=== PATIENT | female | born 1945 | race Caucasian/White ===

== ENCOUNTER → 2018-06-24 | Outpatient (CLI) | payer MEDICARE, OTHER ==
[~2018-06-24] MED LIST: ARMOUR THYROID60 MG PO; CITALOPRAM PO; CORTISONE ACETA25 MG PO; DHEA; EVISTA60 MG PO; GADOBENATE DIMEGLUMINE 1 ML IV ONE; LEVOTHYROXINE; LEVOTHYROXINE PO; MIDRIN CAPSULE1 EACH; PANTOPRAZOLE SO40 MG PO; POTASSIUM CHLO10 ME1 PO; PROBIOTIC; PROBIOTIC DIGE1 EACH PO; REGLAN10 MG PO; RITALIN5 MG PO; SODIUM CHLORIDE 0.9% 50ML 50 ML ONE; SUCRALFATE1 GM PO; TOPIRAMATE25 MG PO; [UNRECOGNIZED DRUG - OTHER] PO; vit b12 IM
[2018-06-24 09:23] LABS: BLOOD UREA NITROGEN 15 mg/dL (7-26); BUN/CREATININE RATIO 17 (6-25); CREATININE, SERUM 0.88 mg/dL (0.57-1.11); EST GLOMERULAR FILTRATION RATE > 60 ML/MIN (60-)
--- NOTE | 2018-06-24 16:15 | Diagnostic Imaging Report ---
EXAMINATION: MRI of the Sella without and with contrast HISTORY: Prolactinoma COMPARISON: None available TECHNIQUE: Thin section images of the sella consisting of coronal dynamic T1, sagittal and coronal T1 pre/post contrast, coronal T2. Whole brain DWI/ADC. Intravenous Contrast: 10 mL of MultiHance. FINDINGS: Pituitary gland: Normal in size and configuration, measuring 4.2 mm maximum height with a flat superior contour. Unremarkable neuro and adenohypophysis. Sella Turcica: Normal in size and configuration. Pituitary stalk: Well visualized and unremarkable. Optic chiasm: Well visualized and unremarkable.. Cavernous sinuses: Normal in size and symmetric. Internal carotid arteries: Normal flow void appearance. Visualized brain parenchyma: Normal, no areas of restricted diffusion. IMPRESSION: Normal pituitary gland. Signed by: Dr. Alexandria Perez M.D. on 06/24/2018 4:12 PM
== END ==
LOC: MRI 08:29
PROVIDERS: ATTEND Internal Medicine
DX: D35.2 Benign neoplasm of pituitary gland (principal)
CPT/HCPCS: 36415; 70553; 82565; 84520

== ENCOUNTER 2018-12-12 15:23 | Inpatient (IN) | payer MEDICARE, OTHER ==
[~2018-12-12] VITALS: Ht 157.5 cm; Wt 47.3 kg
[~2018-12-12 15:23] MED LIST changes: -GADOBENATE DIMEGLUMINE 1 ML IV ONE; -SODIUM CHLORIDE 0.9% 50ML 50 ML ONE
--- OUTSIDE RECORDS SUMMARY | 2018-12-12 15:27 | XMS REPORT | Clinical Summary ---
Author Author [facility] Organization [facility] Address Unknown Phone Unavailable Care Team Providers Care Floor Supervisor Name Role Phone Eriberto Lozada MD PCP Allergies Comments Active Allergy Reactions Severity Noted Date Iodine 11/08/2018 Medications End Date Status Medication Sig Dispensed Refills Start Date Active CYANOCOBALAMIN-SALCAPROZA Take by 0 T SOD ORAL mouth. Active hydroCHLOROthiazide Take 12.5 mg 0 (MICROZIDE) 12.5 mg by mouth capsule daily. Active midodrine (PROAMATINE) Take 2.5 mg 0 2.5 MG tablet by mouth 3 (three) times a day. Active pantoprazole (PROTONIX) Take 40 mg by 0 40 MG EC tablet mouth daily. Active acetaminophen with Take 30 mg by 0 codeine mouth. (ACETAMINOPHEN-CODEINE ORAL) Active abaloparatide (TYMLOS) 80 Inject under 0 mcg (3,120 mcg/1.56 mL) the skin. pen injector Active gabapentin (NEURONTIN) Take 300 mg 0 300 mg capsule by mouth 3 (three) times a day. Active Problems Problem Noted Date Lumbar radiculopathy, right 11/11/2018 Encounters Care Team Description Date Type Specialty Vivek Galeana MD Scoliosis (and kyphoscoliosis), idiopathic; Scoliosis due to degenerative disease of spine in adult patient; Scoliosis of thoracolumbar region due to degenerative disease of spine in adult 11/11/2018 Hospital Radiology Encounter Vivek Galeana MD Scoliosis (and kyphoscoliosis), idiopathic; Scoliosis due to degenerative disease of spine in adult patient; Scoliosis of thoracolumbar region due to degenerative disease of spine in adult 11/11/2018 Hospital Radiology Encounter Vivek Galeana MD Scoliosis (and kyphoscoliosis), idiopathic; Scoliosis due to degenerative disease of spine in adult patient; Scoliosis of thoracolumbar region due to degenerative disease of spine in adult 11/11/2018 Hospital Radiology Encounter Vivek Galeana MD 11/11/2018 Hospital Radiology Encounter Vivek Galeana MD 11/11/2018 Hospital Radiology Encounter Vivek Galeana MD 11/11/2018 Hospital Radiology Encounter Vivek Galeana MD 11/11/2018 Hospital Radiology Encounter Vivek Galaena MD 11/11/2018 Hospital Radiology Encounter Vivek Galeana MD Lumbar radiculopathy, right (Primary Dx) 11/11/2018 Office Visit Neurosurgery Leah Reyes MA Scoliosis (and kyphoscoliosis), idiopathic (Primary Dx); Scoliosis due to degenerative disease of spine in adult patient; Scoliosis of thoracolumbar region due to degenerative disease of spine in adult 11/11/2018 Orders Only Neurosurgery after 12/11/2017 Social History Date Tobacco Use Types Packs/Day Years Used Current Every Day Smoker 1 55 Smokeless Tobacco: Never Used Alcohol Use Drinks/Week oz/Week Comments No Alcohol Habits Answer Date Recorded How often do you have a drink containing alcohol? Never 11/08/2018 How many drinks containing alcohol do you have on Not asked a typical day when you are drinking? How often do you have six or more drinks on one Not asked occasion? Sex Assigned at Date Recorded Not on file Industry Job Start Date Occupation Not on file Not on file Not on file Travel End Travel History Travel Start No recent travel history available. Last Filed Vital Signs Time Taken Vital Sign Reading - Blood Pressure - - Pulse - - Temperature - - Respiratory Rate - - Oxygen Saturation - - Inhaled Oxygen - Concentration - Weight - 11/08/2018 12:37 PM HOSE SUSPENDER CUTTER Height 157.5 cm (5' 2") - Body Mass Index - Plan of Treatment Health Maintenance Due Date Last Done Comments BREAST CANCER SCREENING 1997 COLON CANCER SCREENING 1997 SHINGLES VACCINES (#1) 1997 65+ PNEUMOCOCCAL VACCINE 2012 (1 of 2 - PCV13) PNEUMOCOCCAL 2012 POLYSACCHARIDE VACCINE AGE 65 AND OVER INFLUENZA VACCINE 05/01/2018 Procedures Comments Procedure Name Priority Date/Time Associated Diagnosis XR LUMBAR SPINE AP Routine 11/11/2018 Scoliosis (and LATERAL FLEXION AND 2:47 PM HOSE SUSPENDER CUTTER kyphoscoliosis), EXTENSION idiopathic Scoliosis due to degenerative disease of spine in adult patient Scoliosis of thoracolumbar region due to degenerative disease of spine in adult XR THORACIC SPINE Routine 11/11/2018 Scoliosis (and COMPLETE 4+ VW 2:47 PM HOSE SUSPENDER CUTTER kyphoscoliosis), idiopathic Scoliosis due to degenerative disease of spine in adult patient Scoliosis of thoracolumbar region due to degenerative disease of spine in adult XR SPINE SCOLIOSIS 2-3 Routine 11/11/2018 Scoliosis (and VIEWS 2:47 PM HOSE SUSPENDER CUTTER kyphoscoliosis), idiopathic Scoliosis due to degenerative disease of spine in adult patient Scoliosis of thoracolumbar region due to degenerative disease of spine in adult MRI HEAD EXTERNAL STUDY Routine 06/24/2018 9:46 AM CDT MRI SPINE EXTERNAL STUDY Routine 04/04/2018 7:29 PM CDT after 12/11/2017 Results * XR Spine Scoliosos 2-3 Views (11/11/2018 2:47 PM HOSE SUSPENDER CUTTER) Narrative Performed At EXAMINATION:XR SPINE SCOLIOSIS 2-3 VIEWS [facility] CLINICAL HISTORY:M41.20 Other idiopathic scoliosissite unspecified, M41.50 Other secondary scoliosissite unspecified, scoliosis IMPRESSION: 8 views of the spine were obtained. There is a right-sided scoliotic curvature of the thoracolumbar spine with apex centered at L1 level. The Nunez angle between T6 and L4 measures 13 degrees. The spine alignment is unremarkable. There is no fracture or subluxation. There is slight exaggerated thoracic kyphosis and lumbar lordosis. The bone density is unremarkable with no focal bone lesion. There is no compression fracture. There is 0 coronal balance and 4 cm negative sagittal balance. [id number] Procedure Note Hm Interface, Radiology Results Incoming - 11/11/2018 3:22 PM HOSE SUSPENDER CUTTER EXAMINATION: XR SPINE SCOLIOSIS 2-3 VIEWS CLINICAL HISTORY: M41.20 Other idiopathic scoliosis site unspecified, M41.50 Other secondary scoliosis site unspecified, scoliosis IMPRESSION: 8 views of the spine were obtained. There is a right-sided scoliotic curvature of the thoracolumbar spine with apex centered at L1 level. The Nunez angle between T6 and L4 measures 13 degrees. The spine alignment is unremarkable. There is no fracture or subluxation. There is slight exaggerated thoracic kyphosis and lumbar lordosis. The bone density is unremarkable with no focal bone lesion. There is no compression fracture. There is 0 coronal balance and 4 cm negative sagittal balance. [id number] Performing Organization Address [facility] Phone Number [facility] [address] [place] [address] * XR Lumbar Spine Ap Lateral Flexion And Extension (11/11/2018 2:47 PM HOSE SUSPENDER CUTTER) Narrative Performed At EXAMINATION:XR LUMBAR SPINE AP LATERALFLEXION AND EXTENSION [facility] CLINICAL HISTORY:M41.20 Other idiopathic scoliosissite unspecified, M41.50 Other secondary scoliosissite unspecified, scoliosis IMPRESSION: 6 views of the lumbar spine were obtained. The lumbar spine alignment is unremarkable. There is no fracture or subluxation. The bone density is unremarkable with no focal lytic or blastic lesion. There is no compression fracture. The bending views demonstrates no evidence of lateral instability. The flexion-extension views demonstrates no evidence of instability or abnormal motion. Facet hypertrophic spondylotic changes are seen at L4-L5 and L5-S1 levels. [id number] Procedure Note Hm Interface, Radiology Results Incoming - 11/11/2018 3:18 PM HOSE SUSPENDER CUTTER EXAMINATION: XR LUMBAR SPINE AP LATERAL FLEXION AND EXTENSION CLINICAL HISTORY: M41.20 Other idiopathic scoliosis site unspecified, M41.50 Other secondary scoliosis site unspecified, scoliosis IMPRESSION: 6 views of the lumbar spine were obtained. The lumbar spine alignment is unremarkable. There is no fracture or subluxation. The bone density is unremarkable with no focal lytic or blastic lesion. There is no compression fracture. The bending views demonstrates no evidence of lateral instability. The flexion-extension views demonstrates no evidence of instability or abnormal motion. Facet hypertrophic spondylotic changes are seen at L4-L5 and L5-S1 levels. [id number] Performing Organization Address [facility] Phone Number [facility] [address] [place] [address] * XR Thoracic Spine Complete 4+ Vw (11/11/2018 2:47 PM HOSE SUSPENDER CUTTER) Narrative Performed At EXAMINATION: XR THORACIC SPINE COMPLETE 4VW [facility] CLINICAL HISTORY: M41.20 Other idiopathic scoliosissite unspecified, M41.50 Other secondary scoliosissite unspecified, scoilosis COMPARISON:None IMPRESSION: 5 views of the thoracic spine were obtained including right and left bending images. Bending images show no translational interbody movement. There are calcifications in the aortic arch. The bones are osteopenic without acute compression deformity. There is no spondylolisthesis. [id number] Procedure Note Hm Interface, Radiology Results Incoming - 11/11/2018 3:46 PM HOSE SUSPENDER CUTTER EXAMINATION: XR THORACIC SPINE COMPLETE 4 VW CLINICAL HISTORY: M41.20 Other idiopathic scoliosis site unspecified, M41.50 Other secondary scoliosis site unspecified, scoilosis COMPARISON: None IMPRESSION: 5 views of the thoracic spine were obtained including right and left bending images. Bending images show no translational interbody movement. There are calcifications in the aortic arch. The bones are osteopenic without acute compression deformity. There is no spondylolisthesis. [id number] Performing Organization Address City/[facility]/Zipcode Phone Number [facility] [address] [place] [address] * MRI Head External Study (06/24/2018 9:46 AM CDT) Narrative Performed At This exam was not acquired at a [facility] facility and has not been [facility] interpreted by a [facility] Provider.The exam was imported into our imaging system for comparisons purposes. Performing Organization Address City/[facility]/Zipcode Phone Number [facility] [address] [place] [address] * MRI Spine External Study (04/04/2018 7:29 PM CDT) Narrative Performed At This exam was not acquired at a [facility] facility and has not been [facility] interpreted by a [facility] Provider.The exam was imported into our imaging system for comparisons purposes. Performing Organization Address [facility] Phone Number [facility] [address] [place] [address] after 12/11/2017 Insurance Payer Benefit Subscriber ID Type Phone Address Plan / Group MEDICARE MEDICARE xxxxxxxxxxx Medicare [place], [place] PART A AND B [employer] [employer] [employer] xxxxxxxxxx Commercial LIFE INSURANCE Advance Directives Patient has advance care planning documents on file. For more information, aleksey oneal contact: Hiro Gonzalez [address] [place] [phone]
--- OUTSIDE RECORDS SUMMARY | 2018-12-12 15:27 | XMS REPORT ---
Author [facility] Address Unknown Phone Unavailable Care Team Providers Care Pediatric Dental Assistant Name Role Phone Kasandra SOTO Unavailable Unavailable Problems This patient has no known problems. Allergies, Adverse Reactions, Alerts This patient has no known allergies or adverse reactions. Medications This patient has no known medications. Results Test Description Test Time Test Comments Text Results Atomic Results Result Comments MRI BRAIN WOW 2018-06-24 16:10:00 [place] [address] Patient Name: CASE FONG MR #: [id number] : 1945 Age/Sex: 72/F Req #: [id number] Adm Physician: Ordered by: ELSIE SOTO M.D. Report #: [id number] Location: MRI Room/Bed: Procedure: [id number] MRI/MRI BRAIN WOW Exam Date: Exam Time: REPORT STATUS: Signed EXAMINATION: MRI of the Sella without and with contrast HISTORY: Prolactinoma COMPARISON: None available TECHNIQUE: Thin section images of the sella consisting of coronal dynamic T1, sagittal and coronal T1 pre/post contrast, coronal T2. Whole brain DWI/ADC. Intravenous Contrast: 10 mL of MultiHance. FINDINGS: Pituitary gland: Normal in size and configuration, measuring 4.2 mm maximum height with a flat superior contour. Unremarkable neuro and adenohypophysis. Sella Turcica: Normal in size and configuration. Pituitary stalk: Well visualized and unremarkable. Optic chiasm: Well visualized and unremarkable.. Cavernous sinuses: Normal in size and symmetric. Internal carotid arteries: Normal flow void appearance. Visualized brain parenchyma: Normal, no areas of restricted diffusion. IMPRESSION: Normal pituitary gland. Signed by: Dr. Reuben Choudhary M.D. on 06/24/2018 4:12 PM Dictated By: REUBEN CHOUDHARY MD 1612 Transcribed By: ALYSSA on 06/24/18 1612 COPY TO: ELSIE SOTO M.D.
[2018-12-12] MEDS ORDERED: ALBUTEROL/IPRATROPIUM 3 ML NEB NEB ONE ×2 (16:45→20:15)
--- NOTE | 2018-12-12 17:22 | Diagnostic Imaging Report ---
EXAMINATION: CHEST 2 VIEWS INDICATION: 73-year-old female, shortness of breath and congestion COMPARISON: 04/13/2014 chest radiographs FINDINGS: AP and lateral TUBES and LINES: None. Surgical clips in the esophagogastric junction LUNGS/PLEURA: The lungs are clear. No pleural effusion or pneumothorax. HEART AND MEDIASTINUM: The cardiomediastinal silhouette is unremarkable. BONES AND SOFT TISSUES: No acute osseous lesion. Soft tissues are unremarkable. UPPER ABDOMEN: No free air under the diaphragm. IMPRESSION: No acute thoracic abnormality. Signed by: Nish Phipps MD on 12/12/2018 5:18 PM
[2018-12-12 17:25] LABS: BASOPHILS # (AUTO) 0.1 (0.0-0.1); BASOPHILS % 0.5 % (0.0-1.0); EOSINOPHILS # (AUTO) 0.1 (0.0-0.4); EOSINOPHILS % 0.5 % (0.0-6.0); HEMATOCRIT 42.3 % (34.2-44.1); HEMOGLOBIN 13.9 g/dL (12.0-16.0); LYMPHOCYTES % 20.2 % (18.0-39.1); MEAN CORPUSCULAR HEMOGLOBIN 31.2 pg (28-32); MEAN CORPUSCULAR HGB CONC 32.9 g/dL (31-35); MEAN CORPUSCULAR VOLUME 95.1 fL (81-99); MONOCYTES % 10.1 % (4.4-11.3); NEUTROPHILS # (AUTO) 6.7 (2.1-6.9); NEUTROPHILS % 68.5 % (38.7-80.0); PLATELET COUNT 320 x10e3/uL (140-360); RED BLOOD COUNT 4.45 x10e6/uL (3.6-5.1); RED CELL DISTRIBUTION WIDTH 13.3 % (11.7-14.4)
[2018-12-12 17:35] LABS: INR 0.99; PROTHROMBIN TIME 13.6 seconds (11.9-14.5)
[2018-12-12 17:36] LABS: PARTIAL THROMBOPLASTIN TIME 32.8 seconds (23.8-35.5)
[2018-12-12 17:44] LABS: ALANINE AMINOTRANSFERASE 23 IU/L (0-55); ALBUMIN 3.4 g/dL (3.5-5.0); ALKALINE PHOSPHATASE 130 IU/L (40-150); ANION GAP 14.4 mmol/L (8-16); BLOOD UREA NITROGEN 18 mg/dL (7-26); BUN/CREATININE RATIO 24 (6-25); CALCIUM 8.9 mg/dL (8.4-10.2); CARBON DIOXIDE 27 mmol/L (22-29); CHLORIDE 101 mmol/L (98-107); CREATINE KINASE 52 IU/L (29-168); CREATININE, SERUM 0.74 mg/dL (0.57-1.11); EST GLOMERULAR FILTRATION RATE > 60 ML/MIN (60-); GLUCOSE 102 mg/dL (74-118); POTASSIUM 3.4 mmol/L (3.5-5.1); SODIUM 139 mmol/L (136-145)
[2018-12-12] MEDS ORDERED: SODIUM CHLORIDE 0.9% 1000ML 1,000 ML IV ONE (18:30)
[2018-12-12 18:40] LABS: CLARITY,URINE CLOUDY (CLEAR); COLOR,URINE YELLOW (YELLOW)
[2018-12-12 18:41] LABS: LEUKOCYTE ESTERASE ,URINE TRACE (NEGATIVE); NITRITE,URINE POSITIVE (NEGATIVE)
[2018-12-12 18:42] LABS: BILIRUBIN,URINE NEGATIVE (NEGATIVE); KETONES,URINE 1+ (NEGATIVE); PROTEIN,URINE DIPSTICK 1+ (NEGATIVE); URINE UROBILINOGEN 1 mg/dL (0.2 - 1)
[2018-12-12] MEDS ORDERED: KETOROLAC TROMETHAMINE 30 MG/ML VIAL IV ONE (18:45)
--- NOTE | 2018-12-12 18:50 | NUR ---
VERBAL REPORT GIVEN TO ALTAF NAVARRETE.
[2018-12-12 18:56] LABS: BACTERIA,URINE MODERATE /HPF; EPITHELIAL CELLS,URINE FEW /LPF
[2018-12-12] MEDS: CEFTRIAXONE SOD 1 GM/NS 50 ML 50 ML IV SCH (19:45)
[2018-12-12] MEDS ORDERED: SODIUM CHLORIDE FLUSH 10 ML SYR INJ PRN (20:15)
[2018-12-12] MEDS ORDERED: MIDODRINE HCL2.5 MG PO (20:18)
[2018-12-12] MEDS ORDERED: GABAPENTIN100 MG PEG (20:19)
[2018-12-12] MEDS ORDERED: BACLOFEN10 MG PO (20:19)
[2018-12-12] MEDS ORDERED: GABAPENTIN300 MG PO (20:19)
[2018-12-12] MEDS ORDERED: TYLENOL # 31 EA PO (20:21)
[2018-12-12] MEDS ORDERED: HYDROCHLOROTH12.5 M1 PO (20:21)
[2018-12-12] MEDS ORDERED: TYMLOS SQ (20:24)
[2018-12-12] MEDS ORDERED: NON-FORMULARY MEDICATION (Hydrochlorothiazide 12.5 MG) PO SCH (20:30)
[2018-12-12] MEDS ORDERED: BACLOFEN 10 MG TAB PO PRN (20:30)
--- OUTSIDE RECORDS SUMMARY | 2018-12-12 20:42 | XMS REPORT | Clinical Summary ---
Author Author [facility] Organization [facility] Address Unknown Phone Unavailable Care Team Providers Care Coil Finisher Name Role Phone Eriberto Lozada MD PCP [...] Concentration - Weight - 11/08/2018 12:37 PM SHELL SHOP SUPERVISOR Height 157.5 cm (5' 2") - Body [...] Scoliosis (and LATERAL FLEXION AND 2:47 PM SHELL SHOP SUPERVISOR kyphoscoliosis), EXTENSION idiopathic Scoliosis due to degenerative disease of spine in adult patient Scoliosis of thoracolumbar region due to degenerative disease of spine in adult XR THORACIC SPINE Routine 11/11/2018 Scoliosis (and COMPLETE 4+ VW 2:47 PM SHELL SHOP SUPERVISOR kyphoscoliosis), idiopathic Scoliosis due to degenerative disease of spine in adult patient Scoliosis of thoracolumbar region due to degenerative disease of spine in adult XR SPINE SCOLIOSIS 2-3 Routine 11/11/2018 Scoliosis (and VIEWS 2:47 PM SHELL SHOP SUPERVISOR kyphoscoliosis), idiopathic Scoliosis due to degenerative disease of spine in adult patient Scoliosis of thoracolumbar region due to degenerative disease of spine in adult MRI HEAD EXTERNAL STUDY Routine 06/24/2018 9:46 AM CDT MRI SPINE EXTERNAL STUDY Routine 04/04/2018 7:29 PM CDT after 12/11/2017 Results * XR Spine Scoliosos 2-3 Views (11/11/2018 2:47 PM SHELL SHOP SUPERVISOR) Narrative Performed At EXAMINATION:XR SPINE SCOLIOSIS 2-3 [...] balance and 4 cm negative sagittal balance. [id number] Procedure Note Hm Interface, Radiology Results Incoming - 11/11/2018 3:22 PM SHELL SHOP SUPERVISOR EXAMINATION: XR SPINE SCOLIOSIS 2-3 VIEWS CLINICAL [...] balance and 4 cm negative sagittal balance. [id number] Performing Organization Address [facility] Phone Number [facility] [address] [place] [address] * XR Lumbar Spine Ap Lateral Flexion And Extension (11/11/2018 2:47 PM SHELL SHOP SUPERVISOR) Narrative Performed At EXAMINATION:XR LUMBAR SPINE AP [...] are seen at L4-L5 and L5-S1 levels. [id number] Procedure Note Hm Interface, Radiology Results Incoming - 11/11/2018 3:18 PM SHELL SHOP SUPERVISOR EXAMINATION: XR LUMBAR SPINE AP LATERAL FLEXION [...] are seen at L4-L5 and L5-S1 levels. [id number] Performing Organization Address [facility] Phone Number [facility] [address] [place] [address] * XR Thoracic Spine Complete 4+ Vw (11/11/2018 2:47 PM SHELL SHOP SUPERVISOR) Narrative Performed At EXAMINATION: XR THORACIC SPINE [...] acute compression deformity. There is no spondylolisthesis. [id number] Procedure Note Hm Interface, Radiology Results Incoming - 11/11/2018 3:46 PM SHELL SHOP SUPERVISOR EXAMINATION: XR THORACIC SPINE COMPLETE 4 VW [...] acute compression deformity. There is no spondylolisthesis. [id number] Performing Organization Address City/[facility]/Zipcode Phone Number [facility] [address] [place] [address] * MRI Head External Study (06/24/2018 9:46 AM CDT) Narrative Performed At This exam was not acquired at a [facility] facility and has not been [facility] interpreted by a [facility] Provider.The exam was imported into our imaging system for comparisons purposes. Performing Organization Address City/[facility]/Zipcode Phone Number [facility] [address] [place] [address] * MRI Spine External Study (04/04/2018 7:29 PM CDT) Narrative Performed At This exam was not acquired at a [facility] facility and has not been [facility] interpreted by a [facility] Provider.The exam was imported into our imaging system for comparisons purposes. Performing Organization Address [facility] Phone Number [facility] [address] [place] [address] after 12/11/2017 Insurance Payer Benefit Subscriber ID Type Phone Address Plan / Group MEDICARE MEDICARE xxxxxxxxxxx Medicare [place], [place] PART A [place] B [employer] [employer] [employer] xxxxxxxxxx [employer] INS[employer] Advance Directives Patient has advance care planning documents on file. For more information, aleksey oneal contact: Hiro Gonzalez [address] [place] [phone]
[2018-12-12 21:40] VITALS: BP 101/46
[2018-12-12] MEDS: GABAPENTIN 300 MG CAP PO SCH (21:55)
[2018-12-12 22:49] VITALS: BP 101/46
[2018-12-12 22:55] VITALS: BP 101/46
[2018-12-12] MEDS: BENZONATATE 100 MG CAP PO PRN (23:12)
[2018-12-12] MEDS: ALBUTEROL/IPRATROPIUM 3 ML NEB NEB SCH (23:20)
[2018-12-13] VITALS (7 sets, daily range): BP systolic 90–107; BP diastolic 44–64
[2018-12-13] MEDS: ALBUTEROL/IPRATROPIUM 3 ML NEB NEB SCH ×6 (02:40→22:40)
[2018-12-13 05:05] LABS: BASOPHILS % 0.3 % (0.0-1.0); EOSINOPHILS # (AUTO) 0.1 (0.0-0.4); EOSINOPHILS % 1.1 % (0.0-6.0); HEMATOCRIT 33.9 % (34.2-44.1); HEMOGLOBIN 11.2 g/dL (12.0-16.0); LYMPHOCYTES # (AUTO) 1.6 (1.0-3.2); LYMPHOCYTES % 22.7 % (18.0-39.1); MEAN CORPUSCULAR HEMOGLOBIN 31.5 pg (28-32); MEAN CORPUSCULAR VOLUME 95.2 fL (81-99); MONOCYTES # (AUTO) 1.1 (0.2-0.8); MONOCYTES % 15.2 % (4.4-11.3); NEUTROPHILS # (AUTO) 4.4 (2.1-6.9); NEUTROPHILS % 60.1 % (38.7-80.0); PLATELET COUNT 238 x10e3/uL (140-360); RED BLOOD COUNT 3.56 x10e6/uL (3.6-5.1); RED CELL DISTRIBUTION WIDTH 13.3 % (11.7-14.4)
[2018-12-13 05:38] LABS: BLOOD UREA NITROGEN 18 mg/dL (7-26); BUN/CREATININE RATIO 25 (6-25); CALCIUM 8.2 mg/dL (8.4-10.2); CARBON DIOXIDE 25 mmol/L (22-29); CHLORIDE 108 mmol/L (98-107); CREATINE KINASE MB 1.3 ng/mL (0-5.0); CREATININE, SERUM 0.72 mg/dL (0.57-1.11); EST GLOMERULAR FILTRATION RATE > 60 ML/MIN (60-); GLUCOSE 129 mg/dL (74-118); SODIUM 142 mmol/L (136-145)
[2018-12-13] MEDS: ACETAMINOPHEN/CODEINE 300MG - 30MG TAB PO PRN (07:22)
[2018-12-13] MEDS: GABAPENTIN 100 MG CAP PEG SCH (08:27)
[2018-12-13] MEDS: MIDODRINE 2.5 MG TAB PO SCH ×2 (08:27→16:35)
[2018-12-13] MEDS: PANTOPRAZOLE SOD 40 MG TABEC PO SCH (08:27)
[2018-12-13] MEDS: BENZONATATE 100 MG CAP PO PRN ×2 (08:27→16:35)
--- NOTE | 2018-12-13 08:27 | NUR ---
Pt received resting in bed. Alert and oriented x4 with saline lock #20 in left forearm. Oriented to staff and surroundings, encouraged to press call ibrahim if help needed. All meds given as ordered. Call ibrahim within reach.Emotional support given. Fall precautions maintained. Will monitor
[2018-12-13] MEDS: LACTOBACILLUS RHAMNOSUS R11 PO SCH (08:29)
[2018-12-13] MEDS ORDERED: ABALOPARATIDE SQ SCH (09:00)
--- NOTE | 2018-12-13 10:33 | NUR ---
IMM letter delivered and explained to pt. She verbalized understanding. Signed copy placed in chart. Copy to pt.
[2018-12-13] MEDS ORDERED: ALBUTEROL/IPRATROPIUM 3 ML NEB NEB PRN (11:30)
[2018-12-13] MEDS: GUAIFENESIN/CODEINE 10 ML CUP PO PRN ×2 (11:34→16:35)
[2018-12-13 12:31] LABS: CREATINE KINASE MB 1.5 ng/mL (0-5.0)
[2018-12-13] MEDS ORDERED: METHYLPREDNISOLONE SOD SUCC 40 MG/ML VIAL 1ML IV SCH (14:00)
--- NOTE | 2018-12-13 15:33 | NUR ---
Nutrition Screen Note RD Recommendation for Physician: -Continue cardiac diet as ordered Plan of Care: RD following, monitoring for tolerance and adequacy Nutrition reason for involvement: Nutrition Risk Trigger MST Primary Diagnose(s): COPD, weakness, UTI PMH: COPD, migraine, back pain, gastric ulcer, hyperthyroidism Ht: 62in Wt: 104.31lb BMI: 19.1kg/m2 IBW: 110lb RD Assessment: (12/13) Chart reviewed. Labs and meds reviewed. 73yo F, who was admitted for SOB. Visited pt in room who reported decreased in appetite x 3 days but denied any significant weight loss with UBW ~95lbs (stay in this weight for the last 4 years). Appetite has improved since admission. No GI complains noted. Pt denied any chewing or swallowing difficulty. LBM 12/09 (pt hasnt ate much for the last few days). Pt was not interested in any oral nutrition supplements. Discussed menu options with pt. Will continue to monitor and follow. Current Diet: cardiac diet Malnutrition Evaluation (12/13) The patient does not meet criteria for a specified degree of malnutrition at this time. Will re-evaluate at follow-up as appropriate. Diet Education Needs Assessment: Diet education not indicated. Nutrition Care Level: low Signed: Nadia Hollis, MS, RD, LD
[2018-12-13] MEDS ORDERED: POTASSIUM CHLORIDE 10MEQ EA PO ONE (16:00)
[2018-12-13] MEDS: ENOXAPARIN SOD INJ 40 MG/0.4 ML SYR SC SCH (16:35)
--- NOTE | 2018-12-13 17:56 | History and Physical ---
CHIEF COMPLAINT: Short of breath. HISTORY OF PRESENT ILLNESS: A 73-year-old female with known history of COPD, chronic pain, chronic hypotension, comes into the ED with complaints of shortness of breath, cough, congestion, and underlying wheezing. The patient reports this began over the last 2 or 3 days. She also reports she just quit smoking on Sunday of this week. Denies any chest pain, palpitation, nausea, or vomiting. Denies any fever at home. Reports having some shortness of breath on exertion with underlying wheezing. The patient was seen and evaluated at bedside on the Medical floor. Currently, she is doing well with no complaints. Blood pressure was low and she discussed with me that she is chronically hypotensive. REVIEW OF SYSTEMS: Pertinent positives: Shortness of breath, wheezing, cough congestion. Pertinent negatives: Denies any chest pain, palpitation, dysuria, hematuria, frequency, urgency, lightheadedness, dizziness, abdominal pain, headaches, fever, or any other complaints. Rest of 14-point review of systems have been reviewed with the patient and are negative. ALLERGIES: HYDROCODONE, PROPOXYPHENE, SUMATRIPTAN. HOME MEDICATIONS: Tylenol No. 3 one tab every 6 hours, baclofen, gabapentin, hydrochlorothiazide, midodrine, Protonix. PAST MEDICAL HISTORY: She is a former smoker, COPD, hypotension, neuropathy. PAST SURGICAL HISTORY: Reports none. FAMILY HISTORY: Hypertension, diabetes. SOCIAL HISTORY: Quit smoking just Sunday, but has been smoking for a significant number of years. No alcohol. Good social support. PHYSICAL EXAMINATION: VITAL SIGNS: Temperature is 96.8, pulse 91, respiratory rate is 20, blood pressure 107/47, and pulse ox is 100% on 2 L nasal cannula. GENERAL: Not in acute distress. Alert and oriented x3. Cooperative on examination. HEENT: Head is normocephalic and atraumatic. Eyes; pupils are equal, round, and reactive to light bilaterally. Extraocular movements are intact bilaterally. Throat, no evidence of erythema or exudates in the posterior pharynx. Has poor dentition. NECK: Supple. Good range of motion. PULMONARY: Clear to auscultation bilaterally. No wheezing, no rales, no rhonchi, no crackles appreciated. CARDIOVASCULAR: Positive S1, S2. No murmurs, rubs, or gallops appreciated. ABDOMEN: Soft, nondistended, and nontender to palpation. Bowel sounds present. MUSCULOSKELETAL: Strength is 5/5 throughout. No evidence of any muscle deficits on examination. No weakness appreciated. NEUROLOGICAL: Cranial nerves II through XII grossly intact. No evidence of any neurological deficits on exam. SKIN: Intact. Warm to touch. Good cap refill. PSYCHIATRIC: Normal affect and mood. EXTREMITIES: No edema. Good range of motion throughout LABORATORY FINDINGS: Show white count 7.2, hemoglobin 11.2, hematocrit 33.9, platelets of 238. Coagulations are normal. Chemistry; sodium 142, potassium is 3, chloride 108, bicarb 25, anion gap 12, BUN is 18, creatinine is 0.72, calcium is 8.2, glucose is 129. Her troponins were all negative. Albumin 3.4. BNP is just 24. Urinalysis is concerning for underlying UTI. Influenza is negative. MICROBIOLOGY: Urine cultures, gram-negative bacilli. Blood cultures, no growth. IMAGING STUDIES: Chest x-ray was negative. IMPRESSION: 1. Acute exacerbation of chronic obstructive pulmonary disease. 2. Urinary tract infection. 3. Chronic pain syndrome. 4. Chronic hypotension. 5. Moderate protein-calorie malnutrition. PLAN: At this time, continue with IV steroids, neb treatments, antibiotics and Pulmonary consultation. Monitor urine and blood cultures. Urine culture is already positive. Continue with IV antibiotics. We are going to resume all home medications. replace potassium. Get a.m. labs. Add Lovenox for DVT prophylaxis. The patient is not on home O2 to try to evaluate for home O2. Get PT and OT eval. MD JOHN Todd/MODL /[id number]
[2018-12-13] MEDS ORDERED: SODIUM CHLORIDE 0.9% 250ML 250 ML ONE (18:41)
[2018-12-13] MEDS: CEFTRIAXONE SOD 1 GM/NS 50 ML 50 ML IV SCH ×2 (18:48→19:47)
--- NOTE | 2018-12-13 19:35 | NUR ---
Patient received lying in bed. AAO x 3. Patient had no complaints of pain. No signs of respiratory distress. Bed locked and in lowest position. Bed rails up x 2. Patient instructed to call for assistance when needed. Call light within reach.
[2018-12-13] MEDS: ABALOPARATIDE SC SCH (21:00)
[2018-12-13] MEDS: GABAPENTIN 300 MG CAP PO SCH (21:08)
[2018-12-13] MEDS ORDERED: ZITHROMAX250 MG PO (23:28)
[2018-12-13] MEDS ORDERED: PROAIR HFA INH8.5 GM INH (23:28)
[2018-12-13] MEDS ORDERED: SYMBICORT 80-10.2 GM INH (23:28)
[2018-12-14] VITALS (10 sets, daily range): BP systolic 100–157; BP diastolic 46–70
[2018-12-14] MEDS: ALBUTEROL/IPRATROPIUM 3 ML NEB NEB SCH ×6 (02:25→23:01)
[2018-12-14 05:21] LABS: BASOPHILS % 0.3 % (0.0-1.0); EOSINOPHILS # (AUTO) 0.2 (0.0-0.4); EOSINOPHILS % 2.7 % (0.0-6.0); HEMATOCRIT 33.5 % (34.2-44.1); LYMPHOCYTES # (AUTO) 1.8 (1.0-3.2); LYMPHOCYTES % 26.1 % (18.0-39.1); MEAN CORPUSCULAR HEMOGLOBIN 31.6 pg (28-32); MEAN CORPUSCULAR HGB CONC 32.8 g/dL (31-35); MEAN CORPUSCULAR VOLUME 96.3 fL (81-99); MONOCYTES # (AUTO) 0.7 (0.2-0.8); MONOCYTES % 9.7 % (4.4-11.3); NEUTROPHILS # (AUTO) 4.1 (2.1-6.9); NEUTROPHILS % 60.8 % (38.7-80.0); PLATELET COUNT 238 x10e3/uL (140-360); RED BLOOD COUNT 3.48 x10e6/uL (3.6-5.1); RED CELL DISTRIBUTION WIDTH 13.4 % (11.7-14.4)
[2018-12-14 05:57] LABS: ANION GAP 13.7 mmol/L (8-16); BLOOD UREA NITROGEN 13 mg/dL (7-26); BUN/CREATININE RATIO 18 (6-25); CALCIUM 8.3 mg/dL (8.4-10.2); CARBON DIOXIDE 25 mmol/L (22-29); CHLORIDE 107 mmol/L (98-107); CREATININE, SERUM 0.71 mg/dL (0.57-1.11); EST GLOMERULAR FILTRATION RATE > 60 ML/MIN (60-); GLUCOSE 99 mg/dL (74-118); POTASSIUM 4.7 mmol/L (3.5-5.1); SODIUM 141 mmol/L (136-145)
[2018-12-14] MEDS: BUDESONIDE 0.5MG/2 ML NEB INH SCH ×2 (07:00→19:20)
[2018-12-14 07:59] LABS: EOSINOPHILS % (MANUAL) 3 % (0-7); LYMPHOCYTES % (MANUAL) 27 % (19-48); MONOCYTES % (MANUAL) 10 % (3.4-9.0); NEUTROPHILS % (MANUAL) 59 % (40-74); PLATELET ESTIMATE ADEQUATE; PLATELET MORPHOLOGY COMMENT NORMAL; RBC MORPHOLOGY COMMENT NORMAL
[2018-12-14] MEDS: GABAPENTIN 100 MG CAP PEG SCH ×2 (08:31→20:58)
[2018-12-14] MEDS: MIDODRINE 2.5 MG TAB PO SCH ×2 (08:32→17:36)
[2018-12-14] MEDS: BENZONATATE 100 MG CAP PO PRN ×2 (08:32→17:37)
[2018-12-14] MEDS: ACETAMINOPHEN/CODEINE 300MG - 30MG TAB PO PRN ×2 (08:32→17:37)
[2018-12-14] MEDS: LACTOBACILLUS RHAMNOSUS R11 PO SCH (08:32)
[2018-12-14] MEDS: GUAIFENESIN/CODEINE 10 ML CUP PO PRN ×2 (08:32→17:37)
[2018-12-14] MEDS: PANTOPRAZOLE SOD 40 MG TABEC PO SCH (08:32)
--- NOTE | 2018-12-14 08:35 | NUR ---
Pt received resting in bed. Alert and oriented x4. Emotional support given. All meds given as ordered. Call ibrahim within reach. Will monitor
--- NOTE | 2018-12-14 08:54 | Consultation ---
DATE OF CONSULTATION: 12/13/2018 Pulmonary Medicine Consult REASON FOR REFERRAL: COPD. HISTORY OF PRESENT ILLNESS: Ms. Woodruff is a pleasant 73-year-old female with COPD. The patient came to [facility] on December 12, 2018. The patient had shortness of breath. Onset four days prior to hospitalization. She normally do not have thick phlegm, but it developed. Sputum also turned green. Her exercise tolerance went down to about 1/2 block. The patient came to the emergency room. The patient is found with clear chest x-ray. Due to significant dyspnea and lack of response to initial therapy, she was admitted. PAST MEDICAL HISTORY: COPD, hypotension, chronic, neuropathy, peptic ulcer disease, status post Billroth I with complication of hemothorax in 2006, necessitating drainage. MEDICATIONS: Medication list reviewed per the chart record. Of note, there are no pulmonary medicines. ALLERGIES: HYDROCODONE, PROPOXYPHENE, AND SUMATRIPTAN. SOCIAL HISTORY: No alcohol. No drugs. The patient smoked from age 18 to 73, ex smoker. One pack per day. 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 She was born in [place]. She lives with her son and [id number]. FAMILY HISTORY: Noncontributory. REVIEW OF SYSTEMS: GENERAL: No weight changes. OPHTHALMOLOGY: No double vision. ENT: No mouth ulcers. ENDOCRINE: No thyroid disease known. PULMONARY: No asthma. CARDIAC: No heart attacks. GI: No constipation. : No blood in urine. DERMATOLOGIC: No rash. NEUROLOGIC: No seizures. PHYSICAL EXAMINATION: VITAL SIGNS: Afebrile, vital signs noted, reviewed per the chart record. GENERAL: In no acute distress, some mild increased work of breathing. HEENT: Normocephalic and atraumatic. NECK: Supple. Throat midline. LUNGS: Bilateral air entry, decreased moderate air entry, limited to auscultation. CARDIOVASCULAR: S1 and S2. No murmurs, rubs, or gallops. ABDOMEN: Soft and nontender. EXTREMITIES: No clubbing. No cyanosis. No edema. INTEGUMENT: No rash or purpura. LABORATORY DATA: 2.0 potassium and 0.7 creatinine. 25 bicarbonate. Normal white count, 34 hematocrit, and 238 platelets. Chest x-ray was clear. IMPRESSION AND PLAN: 1. Chronic obstructive pulmonary disease with exacerbation. 2. Moderate seasonal allergies. No known asthma 3. Chronic smoker. 4. 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 5. History of significant osteoporosis, 12% bone density per patient. 6. History of chronic hypotension. 7. History of neuropathy. 8. Peptic ulcer disease history, status post Billroth surgery, complicated by hemothorax, status post drainage. The patient requests no steroids and I am stopping systemic steroids. Give budesonide inhaled. As she gets attacks of breathing spells, often she needs maintenance inhaler Outpatient Symbicort with ProAir rescue. The patient also can continue her allergy medicines, including Zyrtec, Mucinex, and Flonase as needed. No home oxygen needed, oxygen saturation at 96% on room air FiO2 today. Mobilize along. If she improves, she may be able to go home soon. Thank you very much, Dr. Conte, for allowing me to participate in the care of Ms. Woodruff. Do not hesitate to contact me if I could help in any way. MD SAIMA Fierro/JONO /[id number] DIANE
--- NOTE | 2018-12-14 16:40 | Progress Note ---
DATE: Medicine Progress Note SUBJECTIVE: The patient is doing well today with no complaints. She is alert and oriented on examination. She is off oxygen. She does not qualify for home O2. She is breathing much better now. OBJECTIVE: VITAL SIGNS: Temperature is 97, pulse is 100, respiratory rate 16, blood pressure 106/48. She is saturating 95% on room air. GENERAL: Not in acute distress. Alert and oriented x3. Cooperative on examination. HEENT: Head is normocephalic and atraumatic. Eyes; pupils are equal, round, and reactive to light bilaterally. Extraocular movements are intact bilaterally. Throat, no evidence of erythema or exudates in the posterior pharynx. Has poor dentition. NECK: Supple. Good range of motion. PULMONARY: Clear to auscultation bilaterally. No wheezing, no rales, no rhonchi, no crackles appreciated. CARDIOVASCULAR: Positive S1, S2. No murmurs, rubs, or gallops appreciated. ABDOMEN: Soft, nondistended, and nontender to palpation. Bowel sounds present. MUSCULOSKELETAL: Strength is 5/5 throughout. No evidence of any muscle deficits on examination. No weakness appreciated. NEUROLOGICAL: Cranial nerves II through XII grossly intact. No evidence of any neurological deficits on exam. SKIN: Intact. Warm to touch. Good cap refill. PSYCHIATRIC: Normal affect and mood. EXTREMITIES: No edema. Good range of motion throughout. LAB FINDINGS: Show white count of 6.7, hemoglobin 11, hematocrit 33.5, and platelets of 238. Chemistry; sodium 141, potassium 4.7, chloride 107, bicarb 25, anion gap of 30, BUN is 13, creatinine glucose 99, calcium is 8.3, magnesium 1.8. LFTs were negative. Urinalysis is concerning for UTI. Influenza was negative. MICROBIOLOGY: Urine culture positive for E coli, pansensitive. Blood cultures were no growth to date . IMAGING: None. IMPRESSION: 1. Chronic obstructive pulmonary disease exacerbation. 2. Seasonal allergies. 3. Chronic smoker. 4. History of occupational asbestos exposure. 5. History of significant osteoporosis. 6. History of chronic hypotension. 7. History of neuropathy. 8. Peptic ulcer disease. 9. She is status post surgery complicated by hemothorax status post drainage. PLAN: complaints. She still refuses systemic oral steroids. She is breathing well. She is off oxygen. The patient does not qualify for home O2. All vital signs are stable. We will get a.m. labs. Follow with Pulmonary recommendations. Otherwise, we will continue same plan of care. MD JOHN Todd/JONO /[id number]
[2018-12-14] MEDS: ENOXAPARIN SOD INJ 40 MG/0.4 ML SYR SC SCH (17:36)
--- NOTE | 2018-12-14 18:31 | Progress Note ---
DATE: 12/14/2018 Pulmonary Medicine Progress Note SUBJECTIVE: Ms. Woodruff was seen and examined at bedside. She continues to feel slightly better today. The patient was eating well. She is on room air oxygen. After walking, her saturations dropped only to 93%. She was able to shower. REVIEW OF SYSTEMS: No headaches, no bleeding. OBJECTIVE: VITAL SIGNS: Afebrile, vital signs noted per the chart record. GENERAL: No acute distress, alert and calm. HEENT: Normocephalic, atraumatic. NECK: Supple. Throat midline. LUNGS: Bilateral air entry decreased mildly, rare rhonchi. CARDIOVASCULAR: S1, S2. No murmurs, rubs, or gallops. ABDOMEN: Soft, nontender. EXTREMITIES: No clubbing, no cyanosis, no edema. INTEGUMENT: No rash. No purpura. LABS: Potassium 4.7, creatinine 0.7. White count 7 and hematocrit 33. IMPRESSION: 1. Chronic obstructive pulmonary disease with exacerbation. 2. Moderate seasonal allergies, no confirmed asthma. 3. Chronic smoker. 4. 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 5. Significant osteoporosis per the patient. 6. History of neuropathy. 7. History of peptic ulcer disease and Billroth surgery and hemothorax complicating with drainage. PLAN: Bronchodilators. Continue inhaled steroids. No systemic steroids per the patient, high preference with the significant osteoporosis, she cites. Continue to mobilize her. Supportive cough medicine as needed. DVT prophylaxis. MD SAIMA Fierro/ADAMARISL /[id number]
[2018-12-14] MEDS: CEFTRIAXONE SOD 1 GM/NS 50 ML 50 ML IV SCH (18:36)
--- NOTE | 2018-12-14 19:20 | NUR ---
Patient received sitting up in bed. AAO x 3. No acute distress noted . Fall prevention implemented. Call light within reach.
[2018-12-14] MEDS: ABALOPARATIDE SC SCH (21:00)
[2018-12-14] MEDS: GABAPENTIN 300 MG CAP PO SCH (21:00)
--- NOTE | 2018-12-14 22:00 | NUR ---
Patient's IV on left arm infiltrated. New IV inserted on left FA 22G. Patient tolerated well.
[2018-12-15 00:09] VITALS: BP 111/54
[2018-12-15] MEDS: ALBUTEROL/IPRATROPIUM 3 ML NEB NEB SCH ×4 (02:20→14:55)
[2018-12-15] MEDS: ACETAMINOPHEN/CODEINE 300MG - 30MG TAB PO PRN (03:47)
[2018-12-15 04:54] VITALS: BP 96/56
[2018-12-15] MEDS: BUDESONIDE 0.5MG/2 ML NEB INH SCH (07:10)
[2018-12-15] MEDS: LACTOBACILLUS RHAMNOSUS R11 PO SCH (07:45)
[2018-12-15 08:00] VITALS: BP 118/51
[2018-12-15] MEDS: MIDODRINE 2.5 MG TAB PO SCH (08:39)
[2018-12-15] MEDS: PANTOPRAZOLE SOD 40 MG TABEC PO SCH (08:39)
[2018-12-15 08:40] VITALS: BP 118/51
[2018-12-15] MEDS: BENZONATATE 100 MG CAP PO PRN (08:40)
[2018-12-15] MEDS: GUAIFENESIN/CODEINE 10 ML CUP PO PRN (08:40)
--- NOTE | 2018-12-15 08:40 | NUR ---
Pt received resting in bed. Alert and oriented x4. Emotional support given. Pt is for possible discharge today. All meds given as ordered. Call ibrahim within reach. Will monitor
[2018-12-15] MEDS ORDERED: BALSAM PERU/CASTOR OIL 60 GM OINT...G. TP SCH (09:00)
[2018-12-15 12:44] VITALS: BP 108/52
[2018-12-15] MEDS ORDERED: CIPRO500 MG PO (14:36)
--- NOTE | 2018-12-15 15:18 | NUR ---
Pt given discharge instructions regarding meds, diet, activities, and follow up appointment. Pt verbalized understanding of teaching. Awaiting son to pick her up
--- NOTE | 2018-12-15 15:45 | NUR ---
Pt left unit wheelchair
--- NOTE | 2018-12-15 18:31 | Progress Note ---
DATE: 12/15/2018 Pulmonary Medicine Progress Note SUBJECTIVE: Ms. Woodruff was seen and examined at bedside. Oxygen saturation 93% on room air FiO2. She is feeling slightly better. She is able to walk and she is approaching 90% of her baseline. REVIEW OF SYSTEMS: No headaches. OBJECTIVE: VITAL SIGNS: Afebrile, vital signs noted per the chart record. GENERAL: In no acute distress. HEENT: Normocephalic. NECK: Supple. LUNGS: Bilateral air entry. CARDIOVASCULAR: S1 and S2. ABDOMEN: Soft. EXTREMITIES: No edema. INTEGUMENT: No rash. IMPRESSION AND PLAN: 1. Chronic obstructive pulmonary disease with exacerbation. 2. Chronic allergies. 3. Chronic smoker, active. 4. History of asbestosis and sandblasting exposure. 5. History of significant osteoporosis. 6. History of neuropathy. 7. History of peptic ulcer disease and surgeries there from. Outpatient PFTs. Continue inhaled corticosteroids as she does not want any systemic steroids. This could be reasonable depending on the extent of her osteoporosis. Continue bronchodilators. Continue to mobilize. We will follow the patient in clinic and depending on functionality, we would consider pulmonary rehab referral. We will follow along closely. She is for possible discharge today and we prepared some prescriptions. MD SAIMA Fierro/JONO /[id number]
--- NOTE | 2018-12-15 19:52 | Discharge Summary ---
ADDENDUM: MEDICATIONS: Symbicort 80/4.5 mcg inhaler two puffs inhaled b.i.d. Azithromycin was continued. She had a UTI, so we are going to continue with Cipro and we are going to discharge her on ProAir. MD JOHN Todd/JONO /[id number]
[2018-12-16] MEDS ORDERED: HYDROCHLOROTHIAZIDE 25 MG TAB PO SCH (09:00)
--- NOTE | 2018-12-16 11:49 | Discharge Summary ---
FINAL DISCHARGE DIAGNOSES: 1. Acute exacerbation of chronic obstructive pulmonary disease. 2. Seasonal allergies. 3. Chronic smoker. 4. History of significant osteoporosis. 5. History of chronic hypotension. 6. Urinary tract infection. CONSULTANTS: Pulmonary. VITAL SIGNS: Temperature 96.9, pulse 87, respiratory rate is 16, blood pressure 102/52, pulse ox 94% on room air. LABS: White count 6.7, hemoglobin 11, hematocrit is 33.5, platelets of 238. Coagulation; PT 13, INR 0.99, PTT 32. Chemistry; sodium 141, potassium 4.7, chloride 107, bicarb 25, anion gap of 13, BUN is 13, creatinine 0.71, glucose is 99, calcium is 8.3. Troponins were negative. Magnesium was 1.8. Albumin was 3.4. Urinalysis was concerning for UTI. Urine cultures were positive for E coli pansensitive, discharged on Cipro. Blood cultures were negative x2. HOSPITAL COURSE: A 73-year-old female with known history of COPD, comes in with underlying shortness of breath, cough, congestion, and wheezing. The patient was being treated for acute exacerbation of COPD. While here, the patient was on neb treatments. The patient refused oral steroids due to her history of osteoporosis. She was also resistant on inhaled steroids as well. Pulmonary was consulted, recommended bronchodilators. The patient had no other complaints prior to discharge home. She was breathing well with no complaints. She was back to normal baseline. She did not require any home O2. She was found to have a UTI and discharged on oral Cipro for five days. On the day of discharge, vital signs were stable, labs were stable. The patient was seen and evaluated, examined thoroughly on the day of discharge, no other complaints. The patient verbalized understanding and agreed with plan of care, to follow up as an outpatient with the primary care physician in 1 week and Pulmonary in two weeks' time. DISCHARGE MEDICATIONS: See med reconciliation form including Cipro 500 mg one tab p.o. b.i.d. x5 days and ProAir. DISPOSITION: Home. CONDITION: Stable. DIET: Heart healthy. In any event of worsening symptoms, the patient is advised to come back to the ED for further evaluation. Discharge summary took greater than 35 minutes. Jiries S Dahu, MD JSD/ADAMARISL /[id number]
== END 2018-12-15 15:54 | disposition home or self-care (01) | DRG 191 ==
LOC: ER 15:23 → ERHOLD 20:40 → MED/SURG2 21:21
PROVIDERS: ADMIT Internal Medicine; ATTEND Internal Medicine
DX: J44.1 Chronic obstructive pulmonary disease with (acute) exacerbation (principal); N39.0 Urinary tract infection, site not specified; E44.0 Moderate protein-calorie malnutrition; Z68.1 Body mass index [BMI] 19.9 or less, adult; J30.2 Other seasonal allergic rhinitis; M81.0 Age-related osteoporosis without current pathological fracture; F17.210 Nicotine dependence, cigarettes, uncomplicated; B96.20 Unspecified Escherichia coli [E. coli] as the cause of diseases classified elsewhere; G62.9 Polyneuropathy, unspecified; Z77.090 Contact with and (suspected) exposure to asbestos; Z87.11 Personal history of peptic ulcer disease; I95.89 Other hypotension; G89.4 Chronic pain syndrome
CPT/HCPCS: 36415; 71046; 80048; 80053; 81001; 82550; 82553; 83735; 83880; 84484; 85025; 85610; 85730; 87040; 87086; 87186; 87400; 93005; 94640; 96374; 97139; 99284; J0696; J1650; J1885; J2920; J7030; J7050

== ENCOUNTER → 2019-03-19 | Outpatient (CLI) | payer MEDICARE, OTHER ==
[~2019-03-19] MED LIST changes: +BACLOFEN10 MG PO; +CIPRO500 MG PO; +GABAPENTIN100 MG PEG; +GABAPENTIN300 MG PO; +HYDROCHLOROTH12.5 M1 PO; +MIDODRINE HCL2.5 MG PO; +PROAIR HFA INH8.5 GM INH; +SYMBICORT 80-10.2 GM INH; +TYLENOL # 31 EA PO; +TYMLOS SQ; +ZITHROMAX250 MG PO
--- NOTE | 2019-03-19 16:45 | Diagnostic Imaging Report ---
EXAMINATION: CT scan of the chest without contrast. TECHNIQUE: Spiral CT images of the chest were performed from the lung apices to the level of the adrenal glands without IV or oral contrast material. Coronal and sagittal reformatted images were obtained. Low-dose technique was utilized Technique modification was accomplished to maintain the lowest dose possible to the patient. DLP: 80.21 mGy-cm COMPARISON: None. CLINICAL HISTORY:Cough DISCUSSION: LINES/TUBES: None. LUNGS AND AIRWAYS: The lungs are clear. No pulmonary nodules, masses or consolidation. The airways are normal, without endobronchial lesions. Scarring in the left lung base and lingula. Small pleural-based right upper lobe calcified granuloma (series 3 image 43) and a larger calcified granuloma in the right upper lobe (series 3, image 52).. PLEURA: No pneumothorax or pleural effusions. HEART AND MEDIASTINUM: The thyroid gland is normal. The heart and pericardium are within normal limits. There is calcification within the thoracic aorta and coronary arteries. LYMPH NODES: There is no mediastinal, hilar or axillary lymphadenopathy. ABDOMEN: Limited views of the abdomen reveal a nonobstructing upper pole left renal stones with a maximal transverse dimension of 7 mm. Sutures in the region of the stomach from a gastric procedure. There is aortic vascular calcification. Round calcification in the epigastrium medial to the stomach likely is a calcified lymph node. BONES AND SOFT TISSUES: Diffuse bony osteopenia. IMPRESSION: 1. Evidence of old granulomatous disease. 2. Left lingula and lower lobe scarring. 3. There are 2 left upper pole renal stones. Signed by: Dr. Fabrice Tapia DO on 03/19/2019 4:41 PM
== END ==
LOC: CT 14:58
PROVIDERS: ATTEND Internal Medicine Critical Care Medicine
DX: F17.290 Nicotine dependence, other tobacco product, uncomplicated (principal)
CPT/HCPCS: 71250

== ENCOUNTER → 2019-04-19 | Day surgery (SDC) | payer MEDICARE, OTHER ==
[2019-04-17 12:50] LABS: BASOPHILS % 0.3 % (0.0-1.0); EOSINOPHILS # (AUTO) 0.1 (0.0-0.4); EOSINOPHILS % 1.9 % (0.0-6.0); HEMATOCRIT 39.5 % (34.2-44.1); HEMOGLOBIN 13.4 g/dL (12.0-16.0); LYMPHOCYTES % 31.2 % (18.0-39.1); MEAN CORPUSCULAR HEMOGLOBIN 32.2 pg (28-32); MEAN CORPUSCULAR HGB CONC 33.9 g/dL (31-35); MONOCYTES # (AUTO) 0.5 (0.2-0.8); MONOCYTES % 8.3 % (4.4-11.3); NEUTROPHILS # (AUTO) 3.7 (2.1-6.9); NEUTROPHILS % 57.8 % (38.7-80.0); PLATELET COUNT 294 x10e3/uL (140-360); RED BLOOD COUNT 4.16 x10e6/uL (3.6-5.1); RED CELL DISTRIBUTION WIDTH 13.9 % (11.7-14.4)
[~2019-04-19] MED LIST changes: +CABERGOLINE PO; +CABERGOLINE0.5 MG PO; +FENTANYL CITRATE/PF 100MCG/2 ML INJ ONE; +FORTEO PO; -GABAPENTIN100 MG PEG; +GABAPENTIN100 MG PO; +LIDOCAINE HCL 2% LOCAL INJ 5 ML SDV VIAL INJ ONE; +LIQUID B-11000 MCG/1 PO; +PROPOFOL IV EMULSION 10 MG/ML 50 ML VIAL ONE
--- NOTE | 2019-04-19 20:13 | Operative Report ---
DATE OF PROCEDURE: 04/19/2019 SURGEON: Lc Victoria MD PROCEDURE: EGD with biopsies and colonoscopy with polypectomy INDICATIONS FOR EGD: Upper abdominal pain and nausea. INDICATIONS FOR COLONOSCOPY: Colorectal cancer screening, weight loss. MEDICATIONS: The patient was done under MAC, please see anesthesiologist's note. PROCEDURE IN DETAIL: With the patient in left lateral decubitus position, a flexible fiberoptic Olympus gastroscope was introduced into the esophagus under direct visualization without any difficulty. There was some patchy erythema noted in distal esophagus. The scope was then advanced with ease into the stomach, traversing a moderate-sized hiatal hernia. The patient is status post Aleshia-en-Y. Anastomosis appeared intact. There were no evidence of any marginal ulcers. The efferent loop was patent. A minute submucosal nodule was noted just above the anastomosis and that was biopsied. The scope was then retroflexed into the distal rectum and the previously described hiatal hernia was also noted in the retroflexed position. The scope was then straightened out, it was subsequently withdrawn. The patient tolerated the procedure well. IMPRESSION: 1. Mild distal esophagitis. 2. Hiatal hernia. 3. Status post Aleshia-en-Y. Anastomosis intact. No evidence of marginal ulcers. Minute submucosal nodule was noted just proximal to the anastomosis and that was biopsied. PLAN: Follow up histology. Increase Protonix to 40 mg one p.o. a.c. b.i.d. The patient was then turned around. After adequate lubrication of the anal canal, a flexible fiberoptic Olympus colonoscope was inserted into the rectum and advanced with difficulty to the mid to distal sigmoid colon. The sigmoid colon was sharply angulated and fixed and could not be negotiated with the adult colonoscope, which was then withdrawn and a pediatric colonoscope was inserted and with a pediatric colonoscope, we were able to negotiate the area and advanced the scope all the way to the cecum. The colon was excessively spastic and irritable and suboptimally visualized. The scope was then withdrawn slowly and mucosa overlying the ascending and the transverse and descending overall appeared to be within normal limits. There were no obvious obstructing or constricting lesions. There was some diverticular disease noted in the sigmoid colon. Four minute polyps were hot biopsied from the rectum. The scope was retroflexed into the distal rectum and the area around the dentate line appeared to be within normal limits. The scope was then straightened out, it was subsequently withdrawn. The patient tolerated procedure well. IMPRESSION: 1. Colon was excessively spastic and irritable. No obvious obstructing or constricting lesions. Could only be negotiated with a pediatric colonoscope. 2. Diverticulosis. 3. Rectal polyps, hot biopsied. PLAN: Follow up histology. Initiate high-fiber, low-fat diet. Initiate high-fiber supplement. The patient might benefit from a followup colonoscopy in 5 years. She may benefit from an air-contrast barium enema later this year. MD FARHAN Hyde/MODL /[id number] cc: Eriberto Lozada MD
--- OUTSIDE RECORDS SUMMARY | 2019-04-20 09:25 | XMS REPORT | Clinical Summary ---
Author Author [facility] Organization [facility] Address Unknown Phone Unavailable Care Team Providers Care Automation Qa Tester Name Role Phone Eriberto Lozada MD PCP [...] in adult 11/11/2018 Orders Only Neurosurgery after 04/19/2018 Social History Date Tobacco Use Types Packs/Day [...] Concentration - Weight - 11/08/2018 12:37 PM GAS DESULFURIZER Height 157.5 cm (5' 2") - Body Mass Index - Plan of Treatment Care Team Description Date Type Specialty Vivek Galeana MD [address] [facility] [address] [place] [address] 06/04/2019 Office Visit Neurosurgery Salima Mirza MD [address] [place], [place] [phone] 06/10/2019 Office Visit Gastroenterology Health Maintenance Due Date Last Done Comments BREAST CANCER SCREENING 1997 COLONOSCOPY SCREENING 1997 SHINGLES VACCINES (#1) 1997 65+ PNEUMOCOCCAL VACCINE 2012 (1 of 2 - PCV13) INFLUENZA VACCINE 05/01/2019 Procedures Comments Procedure Name Priority Date/Time Associated Diagnosis XR LUMBAR SPINE AP Routine 11/11/2018 Scoliosis (and LATERAL FLEXION AND 2:47 PM GAS DESULFURIZER kyphoscoliosis), EXTENSION idiopathic Scoliosis due to degenerative disease of spine in adult patient Scoliosis of thoracolumbar region due to degenerative disease of spine in adult XR THORACIC SPINE Routine 11/11/2018 Scoliosis (and COMPLETE 4+ VW 2:47 PM GAS DESULFURIZER kyphoscoliosis), idiopathic Scoliosis due to degenerative disease of spine in adult patient Scoliosis of thoracolumbar region due to degenerative disease of spine in adult XR SPINE SCOLIOSIS 2-3 Routine 11/11/2018 Scoliosis (and VIEWS 2:47 PM GAS DESULFURIZER kyphoscoliosis), idiopathic Scoliosis due to degenerative disease of spine in adult patient Scoliosis of thoracolumbar region due to degenerative disease of spine in adult MRI HEAD EXTERNAL STUDY Routine 06/24/2018 9:46 AM CDT after 04/19/2018 Results * XR Spine Scoliosos 2-3 Views (11/11/2018 2:47 PM GAS DESULFURIZER) Specimen Narrative Performed At EXAMINATION:XR SPINE SCOLIOSIS 2-3 [...] balance and 4 cm negative sagittal balance. [id number] Procedure Note Hm Interface, Radiology Results Incoming - 11/11/2018 3:22 PM GAS DESULFURIZER EXAMINATION: XR SPINE SCOLIOSIS 2-3 VIEWS CLINICAL [...] balance and 4 cm negative sagittal balance. [id number] Performing Organization Address [facility] Phone Number [facility] [address] [place] [address] * XR Lumbar Spine Ap Lateral Flexion And Extension (11/11/2018 2:47 PM GAS DESULFURIZER) Specimen Narrative Performed At EXAMINATION:XR LUMBAR SPINE AP LATERALFLEXION AND EXTENSION [facility] CLINICAL H[facility]:M41.20 Other idiopathic scoliosissite unspecified, M41.50 [...] are seen at L4-L5 and L5-S1 levels. [id number] Procedure Note Interface, Radiology Results Incoming - 11/11/2018 3:18 PM GAS DESULFURIZER EXAMINATION: XR LUMBAR SPINE AP LATERAL FLEXION [...] are seen at L4-L5 and L5-S1 levels. [id number] Performing Organization Address [facility] Phone Number [facility] [address] [place] [address] * XR Thoracic Spine Complete 4+ Vw (11/11/2018 2:47 PM GAS DESULFURIZER) Specimen Narrative Performed At EXAMINATION: XR THORACIC SPINE [...] acute compression deformity. There is no spondylolisthesis. [id number] Procedure Note Hm Interface, Radiology Results Incoming - 11/11/2018 3:46 PM GAS DESULFURIZER EXAMINATION: XR THORACIC SPINE COMPLETE 4 VW [...] acute compression deformity. There is no spondylolisthesis. [id number] Performing Organization Address City/[facility]/Zipcode Phone Number [facility] [address] [place] [address] * MRI Head External Study (06/24/2018 9:46 AM CDT) Specimen Narrative Performed At This exam was not acquired at a [facility] facility and has not been [facility] interpreted by a [facility] Provider.The exam was imported into our imaging system for comparisons purposes. Performing Organization Address City/[facility] Phone Number [facility] [address] [place] [address] after 04/19/2018 Insurance Type Payer Benefit Subscriber ID Effective Phone Address Plan / Dates Group Medicare MEDICARE MEDICARE xxxxxxxxxxx 2012-P [place], PART A AND resent [place] B Commercial [place] [employer] [place] xxxxxxxxxx 2014-P LIFE resent INSURANCE Advance Directives Patient has advance care planning documents on file. For more information, aleksey oneal contact: Hiro Gonzalez [address] [place] [phone]
--- OUTSIDE RECORDS SUMMARY | 2019-04-21 09:23 | XMS REPORT | Clinical Summary ---
Author Author [facility] Organization [facility] Address Unknown Phone Unavailable Care Team Providers Care Cadd Instructor Name Role Phone Eriberto Lozada MD PCP [...] in adult 11/11/2018 Orders Only Neurosurgery after 04/20/2018 Social History Date Tobacco Use Types Packs/Day [...] Concentration - Weight - 11/08/2018 12:37 PM PIGGYBACK CLERK Height 157.5 cm (5' 2") - Body Mass Index - Plan of Treatment Care Team Description Date Type Specialty Vivek Galeana MD [address] [facility] [address] [place] [address] 06/04/2019 Office Visit Neurosurgery Salima Mirza MD [address] [place], [place] [phone] 06/10/2019 Office Visit Gastroenterology Health Maintenance Due Date Last Done Comments BREAST CANCER SCREENING 1997 COLONOSCOPY SCREENING 1997 SHINGLES VACCINES (#1) 1997 65+ PNEUMOCOCCAL VACCINE 2012 (1 of 2 - PCV13) INFLUENZA VACCINE 05/01/2019 Procedures Comments Procedure Name Priority Date/Time Associated Diagnosis XR LUMBAR SPINE AP Routine 11/11/2018 Scoliosis (and LATERAL FLEXION AND 2:47 PM PIGGYBACK CLERK kyphoscoliosis), EXTENSION idiopathic Scoliosis due to degenerative disease of spine in adult patient Scoliosis of thoracolumbar region due to degenerative disease of spine in adult XR THORACIC SPINE Routine 11/11/2018 Scoliosis (and COMPLETE 4+ VW 2:47 PM PIGGYBACK CLERK kyphoscoliosis), idiopathic Scoliosis due to degenerative disease of spine in adult patient Scoliosis of thoracolumbar region due to degenerative disease of spine in adult XR SPINE SCOLIOSIS 2-3 Routine 11/11/2018 Scoliosis (and VIEWS 2:47 PM PIGGYBACK CLERK kyphoscoliosis), idiopathic Scoliosis due to degenerative disease of spine in adult patient Scoliosis of thoracolumbar region due to degenerative disease of spine in adult MRI HEAD EXTERNAL STUDY Routine 06/24/2018 9:46 AM CDT after 04/20/2018 Results * XR Spine Scoliosos 2-3 Views (11/11/2018 2:47 PM PIGGYBACK CLERK) Specimen Narrative Performed At EXAMINATION:XR SPINE SCOLIOSIS [...] balance and 4 cm negative sagittal balance. [id number] Procedure Note Hm Interface, Radiology Results Incoming - 11/11/2018 3:22 PM PIGGYBACK CLERK EXAMINATION: XR SPINE SCOLIOSIS 2-3 VIEWS CLINICAL [...] balance and 4 cm negative sagittal balance. [id number] Performing Organization Address [facility] Phone Number [facility] [address] [place] [address] * XR Lumbar Spine Ap Lateral Flexion And Extension (11/11/2018 2:47 PM PIGGYBACK CLERK) Specimen Narrative Performed At EXAMINATION:XR LUMBAR SPINE AP LATERALFLEXION AND EXTENSION [facility] CLINICAL HISTORY:M41.20 Other idiopathic scoliosissite unspecified, M41.50 [...] are seen at L4-L5 and L5-S1 levels. [id number] Procedure Note Interface, Radiology Results Incoming - 11/11/2018 3:18 PM PIGGYBACK CLERK EXAMINATION: XR LUMBAR SPINE AP LATERAL FLEXION [...] are seen at L4-L5 and L5-S1 levels. [id number] Performing Organization Address [facility] Phone Number [facility] [address] [place] [address] * XR Thoracic Spine Complete 4+ Vw (11/11/2018 2:47 PM PIGGYBACK CLERK) Specimen Narrative Performed At EXAMINATION: XR THORACIC [...] acute compression deformity. There is no spondylolisthesis. [id number] Procedure Note Hm Interface, Radiology Results Incoming - 11/11/2018 3:46 PM PIGGYBACK CLERK EXAMINATION: XR THORACIC SPINE COMPLETE 4 VW [...] acute compression deformity. There is no spondylolisthesis. [id number] Performing Organization Address City/[facility]/Zipcode Phone Number [facility] [address] [place] [address] * MRI Head External Study (06/24/2018 9:46 AM CDT) Specimen Narrative Performed At This exam was not acquired at a [facility] facility and has not been [facility] interpreted by a [facility] Provider.The exam was imported into our imaging system for comparisons purposes. 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 For more information, aleksey oneal contact: Hiro Gonzalez [address] [place] [phone]
== END | disposition home or self-care (01) ==
LOC: OR 01:20
PROVIDERS: ATTEND Internal Medicine Gastroenterology
DX: K21.9 Gastro-esophageal reflux disease without esophagitis (principal); K62.1 Rectal polyp; K58.9 Irritable bowel syndrome, unspecified; K20.9 Esophagitis, unspecified; K44.9 Diaphragmatic hernia without obstruction or gangrene; K31.89 Other diseases of stomach and duodenum; K57.30 Diverticulosis of large intestine without perforation or abscess without bleeding; K56.609 Unspecified intestinal obstruction, unspecified as to partial versus complete obstruction; Z98.84 Bariatric surgery status; R63.4 Abnormal weight loss; I95.89 Other hypotension; J44.9 Chronic obstructive pulmonary disease, unspecified; R03.0 Elevated blood-pressure reading, without diagnosis of hypertension; F03.90 Unspecified dementia, unspecified severity, without behavioral disturbance, psychotic disturbance, mood disturbance, and anxiety; F17.210 Nicotine dependence, cigarettes, uncomplicated; Z88.6 Allergy status to analgesic agent; Z01.810 Encounter for preprocedural cardiovascular examination; Z01.812 Encounter for preprocedural laboratory examination; Z68.1 Body mass index [BMI] 19.9 or less, adult
CPT/HCPCS: 36415; 43239; 45384; 85025; 88305; 93005; J2001; J2704; J3010; 45380; 88304

== ENCOUNTER → 2019-04-24 | Outpatient (CLI) | payer MEDICARE, OTHER ==
[~2019-04-24] MED LIST changes: -FENTANYL CITRATE/PF 100MCG/2 ML INJ ONE; +IOPAMIDOL 370 MG/ML 200 ML INFUS..BTL INJ ONE; -LIDOCAINE HCL 2% LOCAL INJ 5 ML SDV VIAL INJ ONE; -PROPOFOL IV EMULSION 10 MG/ML 50 ML VIAL ONE; +SODIUM CHLORIDE 0.9% 50ML 50 ML ONE
[2019-04-24 09:28] LABS: BLOOD UREA NITROGEN 14 mg/dL (7-26); BUN/CREATININE RATIO 16 (6-25); CREATININE, SERUM 0.88 mg/dL (0.57-1.11); EST GLOMERULAR FILTRATION RATE > 60 ML/MIN (60-)
--- NOTE | 2019-04-24 12:33 | Diagnostic Imaging Report ---
CT of the abdomen and pelvis, with contrast, 04/24/2019. History: Right upper quadrant abdominal pain and bloating. Comparison: None available. Technique: Multidetector CT scanning of the abdomen and pelvis was performed from the level of the lung bases to the inferior pubic rami after intravenous administration of contrast. And no oral contrast was given. Coronal and sagittal multiplanar reformations were obtained. RADIATION DOSE: Total DLP: 152 mGy*cm Dose modulation, iterative reconstruction, and/or weight based adjustment of the mA/kV was utilized to reduce the radiation dose to as low as reasonably achievable. Discussion: LUNG BASES: There is bibasilar scarring. ABDOMEN: The liver is enlarged measuring over 19 cm in length. There is no focal hepatic abnormality. The CBD measures 9 mm in diameter. There is no intrahepatic biliary ductal dilatation. A 7 mm calcification is present in the lateral aspect of the left kidney. There is no evidence of hydronephrosis. The spleen, pancreas, adrenal glands, and right kidney are normal. The gallbladder is not visualized. A single surgical clip is noted near the hilum of the liver. The hepatic vein, portal vein, and splenic vein are patent. The abdominal aorta is calcified but within normal limits for size. Evaluation of bowel is limited without oral contrast. Suture material is present in the stomach and proximal small bowel. There is no bowel dilatation. There is no evidence of adenopathy or free fluid. PELVIS: The bladder is nondistended. The uterus and adnexa are not visualized. There is no evidence of free fluid or adenopathy. BONES AND SOFT TISSUES: Degenerative changes are present throughout the lumbar spine without evidence of suspicious lytic or sclerotic lesion. IMPRESSION: 1. Hepatomegaly without focal hepatic abnormality. Correlate with LFTs. 2. Status post post cholecystectomy, gastric surgery, and hysterectomy. 3. Nonobstructing left renal calculus. Signed by: Dustin Kumar on 04/24/2019 12:29 PM
== END ==
LOC: CT 08:25
PROVIDERS: ATTEND Internal Medicine Gastroenterology
DX: R10.84 Generalized abdominal pain (principal)
CPT/HCPCS: 36415; 74177; 82565; 84520; Q9967

== ENCOUNTER 2020-05-17 10:47 | Inpatient (IN) | payer MEDICARE, OTHER ==
[~2020-05-17] VITALS: Ht 157.5 cm; Wt 39.9 kg
[~2020-05-17 10:47] MED LIST changes: +CARBINOXAMINE MA4 MG PO; -IOPAMIDOL 370 MG/ML 200 ML INFUS..BTL INJ ONE; +MEGACE PO; +MULTI-VITAMIN1 EACH PO; +POTASSIUM CHLO20 ME1 PO; -SODIUM CHLORIDE 0.9% 50ML 50 ML ONE; +calcium PO; +collagen PO; +mometasone TOP; +vitamin d PO
[2020-05-17] MEDS ORDERED: ONDANSETRON HCL INJ 2MG/ML 2ML 2 MG/ML VIAL IV STA (11:06)
[2020-05-17] MEDS ORDERED: PANTOPRAZOLE 40 MG 10ML VIAL IV STA (11:06)
[2020-05-17] MEDS ORDERED: SODIUM CHLORIDE 0.9% 1000ML 1,000 ML IV STA (11:06)
[2020-05-17] MEDS ORDERED: SODIUM CHLORIDE 0.9% 1000ML 1,000 ML IV SCH (11:15)
[2020-05-17 11:25] LABS: BASOPHILS % 0.4 % (0.0-1.0); EOSINOPHILS # (AUTO) 0.1 (0.0-0.4); EOSINOPHILS % 0.7 % (0.0-6.0); HEMATOCRIT 46.1 % (34.2-44.1); HEMOGLOBIN 15.7 g/dL (12.0-16.0); LYMPHOCYTES # (AUTO) 2.2 (1.0-3.2); LYMPHOCYTES % 20.6 % (18.0-39.1); MEAN CORPUSCULAR HEMOGLOBIN 33.5 pg (28-32); MEAN CORPUSCULAR HGB CONC 34.1 g/dL (31-35); MEAN CORPUSCULAR VOLUME 98.5 fL (81-99); MONOCYTES # (AUTO) 0.7 (0.2-0.8); MONOCYTES % 6.3 % (4.4-11.3); NEUTROPHILS # (AUTO) 7.6 (2.1-6.9); NEUTROPHILS % 71.5 % (38.7-80.0); PLATELET COUNT 345 x10e3/uL (140-360); RED BLOOD COUNT 4.68 x10e6/uL (3.6-5.1); RED CELL DISTRIBUTION WIDTH 12.1 % (11.7-14.4)
--- OUTSIDE RECORDS SUMMARY | 2020-05-17 11:32 | XMS REPORT | Clinical Summary ---
Author Author [facility] Organization [facility] Address Unknown Phone Unavailable Care Team Providers Care Warehouse Inventory Clerk Name Role Phone Eriberto Lozada MD PCP [...] Description Date Type Specialty Vivek Galeana MD Lumbar radiculopathy, right (Primary Dx) 06/04/2019 Office Visit Neurosurgery after 05/17/2019 Social History Date Tobacco Use Types Packs/Day Years Used Current Every Day Smoker 1 55 Smokeless Tobacco: Never Used Drinks/Week oz/Week Comments Alcohol Use No Alcohol Habits Answer Date Recorded How often do you have a drink containing alcohol? Never 11/08/2018 How many drinks containing alcohol do you have on No t asked a typical day when you are drinking? How often do you have six or more drinks on one Not asked occasion? Sex Assigned at Date Recorded Not on file Industry Job Start Date Occupation Not on file Not on file Not on file Travel End Travel History Travel Start No recent travel history available. 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
--- OUTSIDE RECORDS SUMMARY | 2020-05-17 11:33 | XMS REPORT | Continuity of Care Document ---
Author Author [facility] t Organization [facility] Address [address] [place] [address] [address] [place] [address] Phone Unavailable Care Team Providers Care Personnel Analyst Name Role Phone GEORGIE MANTILLA, PIERRE PCP ISIDRO MULLIGAN Attphys Unavailable Ed Galeana MD Attphys CRESCENCIO JACOBS Attphys Unavailable CONSTANCEAbby ALVARADO Attphys Unavailable Alberto BARTON Attphys Unavailable Kasandra SOTO Attphys Unavailable ISIDRO MULLIGAN Admphys Unavailable Payers Payer Name Policy Type Policy Number Effective Date Expiration Date Kasandra trammell Medicare A & B [id number] 2018 00:00:00 [facility] MEDICAREMEDICARE PART A AND Bxxxxxxxxxxx2012-[place] xxxxxxxxxxx 2012 00:00:00 [place] [employer] VANDER[employer]ILT LIFE INSURANCEVANDERBILT LIFE INSURANCExxxxxxxxxx2014-PresentCommercial xxxxxxxxxx 20 15-10-00 00:00:00 [facility] Miscellaneous Indemnity [id number] 2016 00:00:00 [facility] Problems Condition Name Condition Details Condition Category Status Onset Date Resolution Date Last Treatment Date Treating Clinician Comments Source Lumbar radiculopathy, right Lumbar radiculopathy, right Disease Active 2018-11-11 00:00:00 Hiro Gonzalez Acute exacerbation of chronic obstructive pulmonary disease COPD exacerbation Problem Active [facility] Weakness Generalized weakness Problem Active [facility] Urinary tract infection UTI (urinary tract infection) Problem Active [facility] Allergies, Adverse Reactions, Alerts Allergy Name Allergy Type Status Severity Reaction(s) Onset Date Inacti ve Date Treating Clinician Comments Source Hydrocodone Allergy to Substance Active Mild 2018-12-12 00:00:00 [facility] Propoxyphene Allergy to Substance Active Mild 2018-12-12 00:00:0 0 [facility] Sumatriptan Allergy to Substance Active Mild 2018-12-12 00:00:00 [facility] Iodine Propensity to adverse reactions to drug Active 2018-11-08 00:00:00 Hiro Gonzalez Social History Social Habit Start Date Stop Date Quantity Comments Source History SDOH Alcohol Std Drinks Hiro Sikh History SDOH Alcohol Binge Hiro Gonzalez Sex Assigned At Malena Gonzalez Cigarettes smoked current (pack per day) - Reported 00:00:00 2018-11-08 00:00:00 Hiro Gonzalez Cigarette pack-years 2018-11-08 00:00:00 2018-11-08 00:00:00 Hiro Gonzalez Alcohol intake 2018-11-08 00:00:00 2018-11-08 00:00:00 Current non-drinker of alcohol (finding) [place] Sikh History SDOH Alcohol Frequency 2018-11-08 00:00:00 2018-11-08 00:00:0 0 1 Hiro Gonzalez Smoking Status Start Date Stop Date Source Current every day smoker 2018-11-08 00:00:00 Malena Gonzalez Medications Ordered Medication Name Filled Medication Name Start Date Stop Da te Current Medication? Ordering Clinician Indication Dosage Frequency Signature (SIG) Comments Components Source Albuterol Sulfate (Proair Hfa Inhaler*) 8.5 Gm Inh Alb uterol Sulfate (Proair Hfa Inhaler*) 8.5 Gm Inh 2018-12-13 00:00:00 Yes Sandra Nolasco Md 2 Every 4 Hours as needed for Shortness Of Breath [facility] Budesonide/Formoterol Fumarate (Symbicor t 80-4.5 Mcg Inhaler) 10.2 Gm Hfa.aer.ad Budesonide/Formoterol Fumarate (Symbicor t 80-4.5 Mcg Inhaler) 10.2 Gm Hfa.aer.ad 2018-12-13 00:00:00 Yes Sandra Nolasco Md 2 Twice A Day [facility] CYANOCOBALAMIN-SALCAPROZAT SOD ORAL 2018-11-08 13:12:02 Yes Take by mouth. Hiro Gonzalez hydroCHLOROthiazide (MICROZIDE) 12.5 mg capsule 2018-11-08 13:12 :02 Yes 12.5mg QD Take 12.5 mg by mouth daily. Hiro Gonzalez midodrine (PROAMATINE) 2.5 MG tablet 2018-11-08 13:12:02 Yes 2.5mg Q.[id number] Take 2.5 mg by mouth 3 (three) times a day. Hiro Gonzalez pantoprazole (PROTONIX) 40 MG EC tablet 2018-11-08 13:12:02 Yes 40mg QD Take 40 mg by mouth daily. Hiro merlos acetaminophen with codeine (ACETAMINOPHEN-CODEINE ORAL) 2018-11-08 13:12:02 Yes 30mg Take 30 mg by mouth. Malena Gonzalez abaloparatide (TYMLOS) 80 mcg (3,120 mcg/1.56 mL) pen inject or 2018-11-08 13:12:02 Yes Inject under the skin. Hiro Gonzalez gabapentin (NEURONTIN) 300 mg capsule 2018-11-08 13:12:02 Yes 300mg Q.[id number] Take 300 mg by mouth 3 (three) times a day. Hiro Gonzalez Acetaminophen/Codeine Phosphate (Tylenol # 3*) 1 Ea Ta b Acetaminophen/Codeine Phosphate (Tylenol # 3*) 1 Ea Tab Yes 1 Every 6 Hours as needed for Pain [facility] Cabergolin Cabergolin Yes .25 Weekly for To Prev ent [facility] Calcium Calcium Yes 1000 Daily [facility] Carbinoxamine Maleate 4 Mg Tablet Carbinoxamine Maleate 4 Mg Tablet Yes 4 Three Times A Day [facility] Collagen Collagen Yes 3000 Daily [facility] Cyanocobalamin (Vitamin B-12) (Liquid B-12) 1,000 Mcg/ 15 Ml Liquid Cyanocobalamin (Vitamin B-12) (Liquid B-12) 1,000 Mcg/15 Ml Liquid Yes .5 Q 2 Weeks [facility] Forteo Forteo Yes 20 Daily [facility] Gabapentin 300 Mg Capsule Gabapentin 300 Mg Capsule Yes 600 Three Times A Day [facility] Megace Megace Yes 40 Twice A Day [facility] Mometasone Mometasone Yes .1 [facility] Multivitamin (Multi-Vitamin Daily) 1 Each Tablet Multi vitamin (Multi-Vitamin Daily) 1 Each Tablet Yes 1 Daily [facility] Pantoprazole Sodium (Protonix) 40 Mg Tablet. Pantopr azole Sodium (Protonix) 40 Mg Tablet. Yes 40 Daily [facility] Potassium Chloride 20 Meq Tab.er.prt Potassium Chloride 20 Meq Tab. er.prt Yes 20 As Needed [facility] Vitamin D Vitamin D Yes 1000 Daily [facility] Hydrochlorothiazide 12.5 Mg Capsule, 12.5 Mg Oral Hydr ochlorothiazide 12.5 Mg Capsule, 12.5 Mg Oral 2019-10-03 00:00:00 No 12.5 As Needed as needed for Swelling [facility] Midodrine Hcl 2.5 Mg Tablet, 2.5 Mg Oral Midodrine Hcl 2.5 Mg Tablet, 2.5 Mg Oral 2019-10-03 00:00:00 No 2.5 Twice A Day [facility] Cabergoline 0.5 Mg Tablet, 0.25 Mg Oral Cabergoline 0.5 Mg T ablet, 0.25 Mg Oral 2019-04-19 00:00:00 No .25 [facility] Gabapentin 100 Mg Capsule, 300 Mg Oral Gabapentin 100 Mg Capsule , 300 Mg Oral 2019-04-19 00:00:00 No 300 Three Times A Day [facility] Lactobacillus Rhamnosus R0011 (Probiotic Digestive Care) 1 Each Capsule, 1 Tab Oral Lactobacillus Rhamnosus R0011 (Probiotic Digestive Care) 1 Each Capsule, 1 Tab Oral 2019-04-19 00:00:00 No 1 Daily [facility] Vit B12 , Mg Intramusc Vit B12 , Mg Intramusc 2019-04-19 00:00 :00 No .[id number] [facility] Baclofen 10 Mg Tablet, 5 Mg Oral Baclofen 10 Mg Tablet, 5 Mg Ora l 2019-04-17 00:00:00 No 5 Twice A Day as needed for Muscl e Spasms [facility] Ciprofloxacin Hcl (Cipro) 500 Mg Tablet, 500 Mg Oral C iprofloxacin Hcl (Cipro) 500 Mg Tablet, 500 Mg Oral 2019-04-17 00:00:00 No 500 Every 12 Hours [facility] Gabapentin 300 Mg Capsule, 300 Mg Oral Gabapentin 300 Mg Capsule , 300 Mg Oral 2019-04-17 00:00:00 No 300 Bedtime [facility] Tymlos , 0.8 Mcg Sub-Q Tymlos , 0.8 Mcg Sub-Q 2019-04-17 00:00:00 No .8 Daily [facility] Citalopram , 5 Mg Oral Citalopram , 5 Mg Oral 2018-12-12 00:00:00 No 5 Three Times A Day [facility] [place] Cortisone , 5 Mg Oral [place] Cortisone , 5 Mg Oral 2018-12-12 00:00:00 No 5 Daily [facility] Methylphenidate Hcl (Ritalin) 5 Mg Tablet, 5 Mg Oral M ethylphenidate Hcl (Ritalin) 5 Mg Tablet, 5 Mg Oral 2018-12-12 00:00:00 No 5 Twice A Day [facility] Metoclopramide Hcl (Reglan) 10 Mg Tablet, Mg Oral Met oclopramide Hcl (Reglan) 10 Mg Tablet, Mg Oral 2018-12-12 00:00:00 No F our Times Daily [facility] Potassium Chloride 10 Meq Tab.er.prt, 10 Meq Oral Pota ssium Chloride 10 Meq Tab.er.prt, 10 Meq Oral 2018-12-12 00:00:00 No 10 Daily [facility] Probiotic , Probiotic , 2018-12-12 00:00:00 No T wice A Day [facility] Raloxifene Hcl (Evista) 60 Mg Tablet, 60 Mg Oral Ralox ifene Hcl (Evista) 60 Mg Tablet, 60 Mg Oral 2018-12-12 00:00:00 No 60 Daily [facility] Sucralfate 1 Gm Tablet, 1 Gm Oral Sucralfate 1 Gm Tablet, 1 Gm O ral 2018-12-12 00:00:00 No 1 Four Times Daily [facility] Thyroid,Pork ([place] Thyroid) 60 Mg Tablet, 30 Mg Oral Thyroid,Pork ([place] Thyroid) 60 Mg Tablet, 30 Mg Oral 2018-12-12 00:00:00 No 30 Daily [facility] Topiramate 25 Mg Tablet, 25 Mg Oral Topiramate 25 Mg Tablet, 25 Mg Oral 2018-12-12 00:00:00 No 25 Daily [facility] Levothyroxine , Oral Levothyroxine , Oral 2014-04-15 00:00:00 No Daily [facility] Cortisone Acetate 25 Mg Tab, 25 Mg Oral Cortisone Acetate 25 Mg Tab, 25 Mg Oral 2014-04-13 00:00:00 No 25 Daily [facility] Dhea , Dhea , 2014-04-13 00:00:00 No Daily [facility] Isomethept/Acetaminop/Dichlphn (Midrin Capsule) 1 Each Capsule, Isomethept/Acetaminop/Dichlphn (Midrin Capsule) 1 Each Capsule, 2014-04-13 00:00:00 No Twice A Day [facility] Levothyroxine , Levothyroxine , 2014-04-13 00:00:00 No Daily [facility] Procedures Procedure Date / Time Performed Performing Clinician [facility] kimmy Computed tomography of chest with contrast 2019-10-04 00:00:00 ISIDRO RUBY [facility] X-ray of chest, two views 2019-10-03 00:00:00 ISIDRO MULLIGAN [facility] Magnetic resonance imaging of abdomen without then wit h contrast 2019-10-03 00:00:00 ISIDRO MULLIGAN [facility] Computed tomography of abdomen and pelvis with contrast 2018 00:00:00 CRESCENCIO JACOBS [facility] EGD BIOPSY SINGLE/MULTIPLE 2019-04-19 00:00:00 CRESCENCIO JACOBS [facility] COLONOSCOPY W/LESION REMOVAL 2019-04-19 00:00:00 CRESCENCIO JACOBS [facility] Computed tomography of chest without contrast 2019-03-19 00: 00:00 CONSTANCE SANDRA CONNOLLY [facility] X-ray of chest, two views 2018-12-12 00:00:00 ROSALINA BARTON [facility] Plan of Care Planned Activity Planned Date Details Comments Source Future Scheduled Test 2020-06-01 00:00:00 INFLUENZA VACCINE [code = INFLUENZA VACCINE] [facility] Future Scheduled Test 2012 00:00:00 65+ PNEUMOCOCCAL V ACCINE (1 of 2 - PCV13) [code = 65+ PNEUMOCOCCAL VACCINE (1 of 2 - PCV13)] [facility] Future Scheduled Test 1997 00:00:00 BREAST CANCER SCRE ENING [code = BREAST CANCER SCREENING] [facility] Future Scheduled Test 1997 00:00:00 COLONOSCOPY SCREEN ING [code = COLONOSCOPY SCREENING] [facility] Scheduled Test 1997 00:00:00 SHINGLES VACCINES (#1) [code = SHINGLES VACCINES (#1)] [facility] Encounters Start Date/Time End Date/Time Encounter Type Admission Type Attendi [facility] Facility Care Department Encounter ID Source 2020-03-11 14:03:04 Outpatient [facility]SE CAR [id number] [facility] 2020-03-04 16:24:00 2020-03-04 16:24:00 Outpatient MHSE CAR [id number] [facility] 2019-11-26 13:19:00 2019-11-26 13:19:00 Emergency E MHSE MHSE [id number] [facility] 2019-10-04 09:57:00 2019-10-06 11:31:00 Discharged Inpatient [address] [facility] [id number] [facility] 2019-09-30 07:29:00 2019-09-30 07:29:00 Outpatient [facility]SE CAR [id number] [facility] 2019-09-25 15:08:00 2019-09-25 15:08:00 Outpatient MHSE CAR [id number] [facility] 2019-04-24 08:25:00 2019-04-24 08:25:00 Registered Clinic [address] [facility] [id number] [facility] 2019-04-19 13:20:00 2019-04-19 13:20:[address] [facility] [id number] [facility] 2019-03-19 14:58:00 2019-03-19 14:58:00 Registered Clinic [address] [facility] [id number] [facility] 2018-12-12 20:40:00 2018-12-15 15:54:00 Discharged Inpatient [address] [facility] [id number] [facility] 2018-06-24 08:29:00 2018-06-24 08:29:00 Registered Clinic [address] [facility] [id number] [facility] Results Test Description Test Time Test Comments Results Result Comments Source Blood Culture 2019-10-05 12:22:00 Test Item Blood Culture (test code = 15828850) NO GROWTH AFTER 48 HOURS [facility] [id number] 07:15:00 [place] [address] Patient Name: CASE FONG MR #: [id number] : 1945 Age/Sex: 73/F Req #: [id number] Adm Physician: ISIDRO MULLIGAN MD Ordered by: ISIDRO MULLIGAN MD Report #: [id number] Location: MED/SURG2 Room/Bed: [facility] Procedure: [id number] CT/CT CHEST W Exam Date: 10/04/19 Exam Time: 1215 REPORT STATUS: Signed EXAM: CT Chest WITH contrast 10/04/2019 9:57 AM INDICATION: ABN WT LOSS/SOB/SMOKER 1214 COMPARISON: Chest x-ray dated 10/03/2019. TECHNIQUE: Colleen st was scanned utilizing a multidetector helical scanner from the lung apex th rough the level of the adrenal glands without administration of IV contrast. C oronal and sagittal reformations were obtained. Routine protocol was performed . IV CONTRAST: 100 mL of Isovue-370 COMPLICATIONS: None RADIATI ON DOSE: Total DLP: 184.20 mGy*cm Estimated effective dose: (DLP x 0.014 x size factor) mSv CTDIvol has been reviewed. It is below the virk its set by the Radiation Protocol Committee (RPC). FINDINGS: LINES/ TUBES: None. LUNGS AND AIRWAYS: Hyperinflated lungs. Upper lobe predominan t centrilobular emphysematous changes. Bibasilar linear atelectasis/scarring. Right upper lobe calcified adenoma (series 3, image 53). Airways are normal. PLEURA: The pleural spaces are clear. HEART AND MEDIASTINUM: The thyroid gland is normal. No mediastinal, hilar or axillary lymphadenopathy. The he art is normal in size.. There is no pericardial effusion. Moderate to severe atherosclerotic desiccation of thoracic aorta. UPPER ABDOMEN: Evidence of gastric surgery. Splenic calcified granuloma and a subcentimeter hypodensity which is to small to characterize. 0.8 cm left renal superior pole calculus. BONES: No acute osseous abnormality. SOFT TISSUES: Unremarkable. I MPRESSION: Emphysematous changes of the lungs. No mass or suspicious nodule s visualized. Signed by: Dr. Delano Byers MD on 10/05/2019 8:28 AM Dictated By: DELANO BYERS MD 7 Transcribed By: ALYSSA on 10/05/19827 COPY TO: JEFF MULLIGAN MD CHEST 2 [id number] 14:56:00 [place] [address] Patient Name: CASE FONG MR #: [id number] : 1945 Age/Sex: 73/F Req #: [id number] Adm Physician: ISIDRO MULLIGAN MD Ordered by: ISIDRO MULLIGAN MD Report #: [id number] Location: MED/SURG2 Room/Bed: [facility] Procedure: [id number] DX/CH EST 2 VIEWS Exam Date: 10/03/19 Exam Time: 1415 REPORT STATUS: Signed Chest, 2 views History: Chest pain and shortness of breath Comparison: none Fin dings: Clear lungs. Normal size heart. No pleural effusion or pneumothorax. Impression: Unremarkable examination of the chest Signed by: Amandeep Salazar MD on 10/03/2019 2:57 PM Dictated By: AMANDEEP SALAZAR MD Electro nically Signed By: AMANDEEP SALAZAR MD on 10/03/19 1457 Transcribed By: ALYSSA burt 10/03/19 1457 COPY TO: ISIDRO MULLIGAN MD MRI ABDOMEN [id number] 14:45:00 [place] [address] Patient Name: CASE FONG MR #: [id number] : 1945 Age/Sex: 73/F Req #: [id number] Adm Physician: ISIDRO MULLIGAN MD Ordered by: ISIDRO MULLIGAN MD Report #: [id number] Location: MED/SURG2 Room/Bed: 201-1 Procedure: [id number] MRI/M RI ABDOMEN WOW Exam Date: Exam Time: REPORT STATUS: Signed MRI abdomen without and with contrast History: Abdominal pain, weight loss Comparison: CT abd omen and pelvis 04/24/2019 Technique: Multiplanar and multisequence MRI imag es of the abdomen were obtained without and subsequently following the adminis tration of intravenous gadolinium. Findings: The liver appears enlar ged, with a mildly nodular contour. No hepatic mass is appreciated. The centra l portal and hepatic veins appear patent. No intrahepatic biliary dilation. The gallbladder is absent. Unremarkable appearance of the pancreas. Spec ifically, no ductal dilation or mass. The spleen is normal in size, witho ut focal abnormality. Unremarkable appearance of the adrenal glands and kid neys. The visualized bowel loops appear normal in caliber. Impression: 1. No hepatic mass is appreciated. 2. Mildly enlarged liver with a slightly nodular contour, which could represent cirrhosis. Recommend correlation with liver function tests. No definitive findings of portal hypertension. Sign ed by: Amandeep Salazar MD on 10/03/2019 2:56 PM Dictated By: AMANDEEP SALAZAR MD 1456 Transcribed B y: ALYSSA on 10/03/19 1456 COPY TO: ISIDRO MULLIGAN MD Thyroid Stimulating Hormone (TSH)2019-10-03 14:05:00* Test Item Value Reference Range Interpretation Comments Thyroid Stimulating Hormone (TSH) (test code = 47346-4) 2.677 0.350-4.940 [facility] [id number] 13:40:00* Test Item Value Reference Range Interpretation Comments Urine WBC (test code = 5821-4) 0-5 0-5 [facility] [id number] 13:40:00* Test Item Value Reference Range Interpretation Comments Urine RBC (test code = 32039-2) NONE 0-5 [facility] [id number] 13:40:00* Test Item Value Reference Range Interpretation Comments Urine Bacteria (test code = 61948-8) FEW NONE [facility] Epithelial [id number] 13:40:00 * Test Item Value Reference Range Interpretation Comments Urine Epithelial Cells (test code = 88229-9) FEW NONE [facility] [id number] 13:38:00* Test Item Value Reference Range Interpretation Comments Urine Color (test code = 5778-6) YELLOW YELLOW [facility] [id number] 13:38:00* Test Item Value Reference Range Interpretation Comments Urine Clarity (test code = 48498-3) SL CLOUDY CLEAR [facility] Specific [id number] 13:38:00 * Test Item Value Reference Range Interpretation Comments Urine Specific Cropsey (test code = 5811-5) 1.015 1.010-1.02 5 [facility] [id number] 13:38:00* Test Item Value Reference Range Interpretation Comments Urine pH (test code = 42169-2) 7 5-7 [facility] Leukocyte [id number] 13:38:00* Test Item Value Reference Range Interpretation Comments Urine Leukocyte Esterase (test code = 76459-6) NEGATIVE NEGATIV E [facility] [id number] 13:38:00* Test Item Value Reference Range Interpretation Comments Urine Nitrite (test code = 88764-4) NEGATIVE NEGATIVE [facility] [id number] 13:38:00* Test Item Value Reference Range Interpretation Comments Urine Protein (test code = 01310-5) NEGATIVE NEGATIVE [facility] Glucose (UA)2019-10-03 13:38:00* Test Item Value Reference Range Interpretation Comments Urine Glucose (UA) (test code = 22742-5) NEGATIVE NEGATIVE [facility] [id number] 13:38:00* Test Item Value Reference Range Interpretation Comments Urine Ketones (test code = 03556-4) NEGATIVE NEGATIVE [facility] [id number] 13:38:00* Test Item Value Reference Range Interpretation Comments Urine Urobilinogen (test code = 42590-7) 0.2 0.2-1 [facility] [id number] 13:38:00* Test Item Value Reference Range Interpretation Comments Urine Bilirubin (test code = 1977-8) NEGATIVE NEGATIVE [facility] Cfzft0037-84-92 13:38:00* Test Item Value Reference Range Interpretation Comments Urine Blood (test code = 95762-8) NEGATIVE NEGATIVE [facility] Heights[facility] Cleuz3499-74-17 13:31:00* Test Item Value Reference Range Interpretation Comments Iron Level (test code = 2498-4) 59 50-170 [facility] Iron Binding Twelrsod1607-13-89 13:31:00* Test Item Value Reference Range Interpretation Comments Total Iron Binding Capacity (test code = 2500-7) 388 261-4 78 [facility] Iron Qkqdesmdms9762-04-15 13:31:00* Test Item Value Reference Range Interpretation Comments Percent Iron Saturation (test code = 2502-3) 15 15-50 [facility] HeightsTransferrin2020-01-03 13:31:00* Test Item Value Reference Range Interpretation Comments Transferrin (test code = 3034-6) 277 180-382 [facility]thrombin Yzko4490-22-91 13:25:00* Test Item Value Reference Range Interpretation Comments Prothrombin Time (test code = 5902-2) 13.0 11.9-14.5 [facility] Time International Ratio 2019-10-03 13:25:00* Test Item Value Reference Range Interpretation Comments Prothromb Time International Ratio (test code = 6301-6) 0.93 Oral Anticoagulant Therapy INR Values:1. Low Intensity Therapy 1.5 - 2.02 . Moderate Intensity Therapy 2.0 - 3.03. High Intensity Therapy(1) 2.5 - 3. 54. High Intensity Therapy(2) 3.0 - 4.05. Panic Value INR > 5.0 [facility] Partial Thromboplast Time 2019-10-03 13:25:00* Test Item Value Reference Range Interpretation Comments Activated Partial Thromboplast Time (test code = 83075-4) 30.5 23.8-35.5 [facility] Natriuretic Fiovkdn3137-87-83 13:11:00* Test Item Value Reference Range Interpretation Comments B-Type Natriuretic Peptide (test code = 98402-6) 20.0 0-100 [facility]esium Kolto9548-68-56 13:07:00* Test Item Value Reference Range Interpretation Comments Magnesium Level (test code = 73063-3) 1.7 1.3-2.1 [facility] Wxdgc9498-42-00 12:53:00* Test Item Value Reference Range Interpretation Comments Sodium Level (test code = 2951-2) 140 136-145 [facility] Exmzz3086-61-92 12:53:00* Test Item Value Reference Range Interpretation Comments Potassium Level (test code = 2823-3) 3.5 3.5-5.1 [facility] HeightsChloride Kbbgb8288-27-31 12:53:00* Test Item Value Reference Range Interpretation Comments Chloride Level (test code = 2075-0) 104 98-107 [facility] HeightsCarbon Dioxide Ywhff8476-70-44 12:53:00* Test Item Value Reference Range Interpretation Comments Carbon Dioxide Level (test code = 2028-9) 26 22-29 [facility] HeightsAnion Bji5416-17-28 12:53:00* Test Item Value Reference Range Interpretation Comments Anion Gap (test code = 53760-4) 13.5 8-16 [facility] Urea Gvxthwyr4458-36-21 12:53:00* Test Item Value Reference Range Interpretation Comments Blood Urea Nitrogen (test code = 3094-0) 13 7-26 [facility] HeightsCreatinine2020-01-03 12:53:00* Test Item Value Reference Range Interpretation Comments Creatinine (test code = 2160-0) 0.85 0.57-1.11 [facility]UN/Creatinine Dkxup7712-05-59 12:53:00* Test Item Value Reference Range Interpretation Comments BUN/Creatinine Ratio (test code = 3097-3) 15 6-25 [facility] Heights[facility]at Glomerular Filtration Rate 2019-10-03 12:53:00* Test Item Value Reference Range Interpretation Comments Estimat Glomerular Filtration Rate (test code = 355880977) > 60 >60 Ranges were taken from the National Kidney Disease Education Program and the [facility] Kidney Foundation literature.Reference ranges:60 or greater: Kvzjms12-25 ( for 3 consecutive months): Chronic kidney disease 15 or less: Kidney failureSet[facility] Center Harker HeightsGlucose Nwzfo1037-35-82 12:53:00* Test Item Value Reference Range Interpretation Comments Glucose Level (test code = ZOO6686) 79 74-118 [facility] HeightsCalcium Nzqdm4112-34-75 12:53:00* Test Item Value Reference Range Interpretation Comments Calcium Level (test code = 54544-3) 8.8 8.4-10.2 [facility] HeightsTotal Uyyghlpww5529-57-26 12:53:00* Test Item Value Reference Range Interpretation Comments Total Bilirubin (test code = 1975-2) 0.2 0.2-1.2 [facility] HeightsAspartate Amino Transf (AST/SGOT) 2019-10-03 12:53:00* Test Item Value Reference Range Interpretation Comments Aspartate Amino Transf (AST/SGOT) (test code = Aspartate Amino Transf (AST/SGOT)) 22 5-34 [facility] HeightsAlanine Aminotransferase (ALT/SGPT) 2019-10-03 12:53:00* Test Item Value Reference Range Interpretation Comments Alanine Aminotransferase (ALT/SGPT) (test code = 1742-6) 19 0-55 [facility] HeightsTotal Jjmfouo0337-10-35 12:53:00* Test Item Value Reference Range Interpretation Comments Total Protein (test code = 2885-2) 6.4 6.5-8.1 L [facility] HeightsAlbumin2020-01-03 12:53:00* Test Item Value Reference Range Interpretation Comments Albumin (test code = 1751-7) 3.4 3.5-5.0 L [facility] HeightsGlobulin2020-01-03 12:53:00* Test Item Value Reference Range Interpretation Comments Globulin (test code = 43215-9) 3.0 2.3-3.5 [facility] HeightsAlbumin/Globulin Vkkjt1109-10-85 12:53:00 * Test Item Value Reference Range Interpretation Comments Albumin/Globulin Ratio (test code = 1759-0) 1.1 0.8-2.0 [facility] HeightsAlkaline Xyrghlfnaex9475-57-41 12:53:00* Test Item Value Reference Range Interpretation Comments Alkaline Phosphatase (test code = 6768-6) 91 40-150 [facility] HeightsCreatine Efpstj1532-44-60 12:53:00* Test Item Value Reference Range Interpretation Comments Creatine Kinase (test code = 2157-6) 62 29-168 [facility] HeightsCreatine Kinase VN6594-29-87 12:53:00* Test Item Value Reference Range Interpretation Comments Creatine Kinase MB (test code = 68195-4) 1.10 0-5.0 [facility] HeightsTroponin W3046-23-06 12:53:00* Test Item Value Reference Range Interpretation Comments Troponin I (test code = TJG3431) < 0.001 0-0.300 [facility] HeightsWhite Blood Letvc2327-79-47 12:25:00* Test Item Value Reference Range Interpretation Comments White Blood Count (test code = 6690-2) 7.58 4.8-10.8 [facility] HeightsRed Blood Stbui5855-25-06 12:25:00* Test Item Value Reference Range Interpretation Comments Red Blood Count (test code = 789-8) 4.35 3.6-5.1 [facility] HeightsHemoglobin2020-01-03 12:25:00* Test Item Value Reference Range Interpretation Comments Hemoglobin (test code = 20809-2) 14.4 12.0-16.0 [facility] HeightsHematocrit2020-01-03 12:25:00* Test Item Value Reference Range Interpretation Comments Hematocrit (test code = 4544-3) 42.6 34.2-44.1 [facility] HeightsMean Corpuscular Ctmvrf6802-58-08 12:25:00* Test Item Value Reference Range Interpretation Comments Mean Corpuscular Volume (test code = 787-2) 97.9 81-99 [facility] HeightsMean Corpuscular Refnqwkfzk2645-60-89 12:25:00* Test Item Value Reference Range Interpretation Comments Mean Corpuscular Hemoglobin (test code = 785-6) 33.1 28-32 H [facility] HeightsMean Corpuscular Hemoglobin Concent 2019-10-03 12:25:00* Test Item Value Reference Range Interpretation Comments Mean Corpuscular Hemoglobin Concent (test code = 786-4) 33.8 31-35 [facility] HeightsRed Cell Distribution Jwerf6804-74-71 12:25:00* Test Item Value Reference Range Interpretation Comments Red Cell Distribution Width (test code = 54775-8) 12.7 11.7 -14.4 [facility] HeightsPlatelet Xcikz4195-70-92 12:25:00* Test Item Value Reference Range Interpretation Comments Platelet Count (test code = 777-3) 305 140-360 [facility] HeightsNeutrophils (%) (Auto)2019-10-03 12:25:00 * Test Item Value Reference Range Interpretation Comments Neutrophils (%) (Auto) (test code = 27590-7) 64.2 38.7-80.0 [facility] HeightsLymphocytes (%) (Auto)2019-10-03 12:25:00 * Test Item Value Reference Range Interpretation Comments Lymphocytes (%) (Auto) (test code = 736-9) 27.2 18.0-39.1 [facility] HeightsMonocytes (%) (Auto)2019-10-03 12:25:00* Test Item Value Reference Range Interpretation Comments Monocytes (%) (Auto) (test code = 5905-5) 6.3 4.4-11.3 [facility] HeightsEosinophils (%) (Auto)2019-10-03 12:25:00 * Test Item Value Reference Range Interpretation Comments Eosinophils (%) (Auto) (test code = 713-8) 1.7 0.0-6.0 [facility] HeightsBasophils (%) (Auto)2019-10-03 12:25:00* Test Item Value Reference Range Interpretation Comments Basophils (%) (Auto) (test code = 706-2) 0.3 0.0-1.0 [facility] HeightsIM GRANULOCYTES %2019-10-03 12:25:00* Test Item Value Reference Range Interpretation Comments IM GRANULOCYTES % (test code = IM GRANULOCYTES %) 0.3 0.0- 1.0 [facility] HeightsNeutrophils # (Auto)2019-10-03 12:25:00* Test Item Value Reference Range Interpretation Comments Neutrophils # (Auto) (test code = 751-8) 4.9 2.1-6.9 [facility] HeightsLymphocytes # (Auto)2019-10-03 12:25:00* Test Item Value Reference Range Interpretation Comments Lymphocytes # (Auto) (test code = 81886-8) 2.1 1.0-3.2 [facility] HeightsMonocytes # (Auto)2019-10-03 12:25:00* Test Item Value Reference Range Interpretation Comments Monocytes # (Auto) (test code = 742-7) 0.5 0.2-0.8 [facility] HeightsEosinophils # (Auto)2019-10-03 12:25:00* Test Item Value Reference Range Interpretation Comments Eosinophils # (Auto) (test code = 711-2) 0.1 0.0-0.4 [facility] HeightsBasophils # (Auto)2019-10-03 12:25:00* Test Item Value Reference Range Interpretation Comments Basophils # (Auto) (test code = 704-7) 0.0 0.0-0.1 [facility] HeightsAbsolute Immature Granulocyte (auto 2019-10-03 12:25:00* Test Item Value Reference Range Interpretation Comments Absolute Immature Granulocyte (auto (sin t code = Absolute Immature Granulocyte (auto) 0.02 0-0.1 [facility]CR [facility] DIGITAL 2019-08-01 09:31:39 - SCR MAMM BILATERAL CAT CAD DIGITALBILATERAL DIGITAL SCREENING MAMMOGRAM 3D/2D WITH CAD: 08/01/2019CLINICAL: Asymptomatic. Digital breast tomosynthesis was performed in addition to routine CC and MLO views. Current mammographic images were evaluated by either a [employer] M-Vu or a [employer] CAD (computer aided detection system). Comparison is made to exams dated 03/21/2018 mammogram, 03/14/2018 mammogram, and 01/15/2014 mammogram - [facility]-. The tissue of both breasts is heterogeneously dense. This may lower the sensitivity of mammography. No suspicious mass, architectural distortion, malignant type calcification, or lymph node abnormality detected. IMPRESSION: NEGATIVEBilateral ultrasound pending for additional evaluation. There is no mammographic evidence of malignancy. Doris Gongora M.D. dm/penrad:08/01/2019 09:31:39 Entry: - 08/06/2019 10:35:51copy to: Isidro Mulligan M.D., ph: [phone], fax: [phone] to: Pierre Lozada M.D., ph: [phone], fax: [phone] Technologist: Tasia Remy , [facility]-Mammogram BI-RADS: 1 NegativeBREAST ULTRASOUND BMBPHVINS5635-94-91 09:30:44- BREAST ULTRASOUND BILATERALULTRASOUND OF BOTH BREASTS AND BOTH AXILLA: 08/01/2019CLINICAL: Supplemental Screening for Dense Breast. Comparison is made to exams dated 08/01/2019 mammogram and 03/21/2018 ultrasound - [facility]-. Real-time ultrasound of both breasts and both axilla and clinical breast exam were performed. No abnormalities were seen sonographically in either breast or either axilla. Clinical breast exam was unremarkable.IMPRESSION: NEGATIVE There is no sonographic evidence of malignancy. Patient has been informed that she has areas of dense breast tissue that could make it difficult to find a small cancer. A screening mammogram and supplemental ultrasound for dense breast tissu e is recommended in 1 year.Doris Gongora M.D. dm/:08/01/2019 09:30:44 copy to: Isidro Mulligan M.D., ph: [phone], fax: [phone] to: Pierre Abbott, ph: [phone], fax: [phone] Technologist: [facility]-FWletter sent: BIRADS 1-2 Combo FU Letter Ultrasound BI-R ADS: 1 NegativeCT ABDOMEN/PELVIS R2088-73-76 12:22:00 [place] [address] Patient Name: CASE FONG MR #: [id number] : 1945 Age/Sex: 73/F Req #: [id number] Adm Physician: Ordered by: CRESCENCIO JACOBS MD Report #: [id number] Location: CT Room/Bed: Procedure: [id number] C T/CT ABDOMEN/PELVIS W Exam Date: 04/24/19 Exam Time: 0940 REPORT STATUS: Signed CT of the abdomen and pelvis, with contrast, 04/24/2019. History: Right upper quadrant abdominal pain and bloating. Comparison: None available. Technique: Multidetector CT scanning of the abdomen and pelvis was performed from the level of the lung bases to the inferior pubic rami after intravenous administration of contrast. And no oral contrast was given. Coronal and sag ittal multiplanar reformations were obtained. RADIATION DOSE: Tot al DLP: 152 mGy*cm Dose modulation, iterative reconstruction, and/or weig ht based adjustment of the mA/kV was utilized to reduce the radiation dose to as low as reasonably achievable. Discussion: LUNG BASES: There is bib asilar scarring. ABDOMEN: The liver is enlarged measuring over 19 cm in kirby gth. There is no focal hepatic abnormality. The CBD measures 9 mm in diameter. There is no intrahepatic biliary ductal dilatation. A 7 mm calcification is p resent in the lateral aspect of the left kidney. There is no evidence of hydro nephrosis. The spleen, pancreas, adrenal glands, and right kidney are norm al. The gallbladder is not visualized. A single surgical clip is noted near th e hilum of the liver. The hepatic vein, portal vein, and splenic vein are willis nt. The abdominal aorta is calcified but within normal limits for size. Evalu ation of bowel is limited without oral contrast. Suture material is present in the stomach and proximal small bowel. There is no bowel dilatation. There is no evidence of adenopathy or free fluid. PELVIS: The bladder is nondi stended. The uterus and adnexa are not visualized. There is no evidence of williams e fluid or adenopathy. BONES AND SOFT TISSUES: Degenerative changes are pr esent throughout the lumbar spine without evidence of suspicious lytic or scle rotic lesion. IMPRESSION: 1. Hepatomegaly without focal hepatic abn ormality. Correlate with LFTs. 2. Status post post cholecystectomy, gastric acuna rgery, and hysterectomy. 3. Nonobstructing left renal calculus. Signed by: Dustin Kumar on 04/24/2019 12:29 PM Dictated By: DUSTIN KUMAR MD El ectronically Signed By: DUSTIN KUMAR MD on 04/24/19 1229 Transcribed By: JENNIFER ARGUETA on 04/24/19 1229 COPY TO: CRESCENCIO JACOBS MD CT CHEST WO 2019-03-19 16:29:00 [place] [address] Patient Name: CASE FONG MR #: [id number] : 1945 Age/Sex: 73/F Req #: [id number] Adm Physician: Ordered by: SANDRA NOLASCO MD Report #: [id number] Location: CT Room/Bed: Procedure: [id number] CT/CT CHEST WO Exam Date: 03/19/19 Exam Time: 1526 REPORT STATUS: Signed EXAMINATION: CT scan of the chest without contrast. TECHNIQUE: Spiral CT images of the chest were performed from the lung apices to the level of the adrenal glands without IV or oral contrast material. Coronal and sagittal reformatted images were obtained. Low-dose technique was utilized Technique modification was accomplished to maintain the lowest dose possible to the patient. DLP: 80.21 mGy-cm COMPARISON: None. CLINICAL HISTORY:Cough DISCUSSION: LINES/TUBES: None. LUNGS AND AIRWAYS: The lungs are clear. No pulm onary nodules, masses or consolidation. The airways are normal, without end obronchial lesions. Scarring in the left lung base and lingula. Small pleural- based right upper lobe calcified granuloma (series 3 image 43) and a larger ca lcified granuloma in the right upper lobe (series 3, image 52).. PLEURA: No pneumothorax or pleural effusions. HEART AND MEDIASTINUM: The thyroid gland is normal. The heart and pericardium are within normal limits. There is calcification within the thoracic aorta and coronary arteries. LYMPH N ODES: There is no mediastinal, hilar or axillary lymphadenopathy. ABDOMEN: Limited views of the abdomen reveal a nonobstructing upper pole left renal sto ric with a maximal transverse dimension of 7 mm. Sutures in the region of the stomach from a gastric procedure. There is aortic vascular calcification. Roun d calcification in the epigastrium medial to the stomach likely is a calcified lymph node. BONES AND SOFT TISSUES: Diffuse bony osteopenia. IMPRESS ION: 1. Evidence of old granulomatous disease. 2. Left lingula and lower l obe scarring. 3. There are 2 left upper pole renal stones. Signed by: Dr. Fabrice Warner DO on 03/19/2019 4:41 PM Dictated By: FABRICE WARNER DO El ectronically Signed By: FABRICE WARNER DO on 03/19/191640 Transcribed By: JENNIFER ARGUETA on 03/19/191640 COPY TO: SANDRA NOLASCO MD, [facility] Blood Qyaanyq1805-88-45 17:18:00* Test Item Value Reference Range Interpretation Comments Blood Culture (test code = 02778286) NO GROWTH AFTER 48 HOURS [facility] HeightsUrine Kvabcag1117-15-39 08:28:00* Test Item Value Reference Range Interpretation Comments Urine Culture (test code = 630-4) Organism: ESCHERICHIA COLI [facility] HeightsUrine Dilamio9568-27-36 08:28:00* Test Item Value Reference Range Interpretation Comments Urine Culture (test code = 630-4) No Result Data Provided [facility] HeightsDifferential Total Cells Counted 2018-12-14 07:59:00* Test Item Value Reference Range Interpretation Comments Differential Total Cells Counted (test code = Differen tial Total Cells Counted) 100 [facility] HeightsNeutrophils % (Manual)2018-12-14 07:59:00 * Test Item Value Reference Range Interpretation Comments Neutrophils % (Manual) (test code = 66971-9) 59 40-74 [facility] HeightsLymphocytes % (Manual)2018-12-14 07:59:00 * Test Item Value Reference Range Interpretation Comments Lymphocytes % (Manual) (test code = 737-7) 27 19-48 [facility] HeightsMonocytes % (Manual)2018-12-14 07:59:00* Test Item Value Reference Range Interpretation Comments Monocytes % (Manual) (test code = 744-3) 10 3.4-9.0 H [facility] HeightsEosinophils % (Manual)2018-12-14 07:59:00 * Test Item Value Reference Range Interpretation Comments Eosinophils % (Manual) (test code = 714-6) 3 0-7 [facility] HeightsBasophils % (Manual)2018-12-14 07:59:00* Test Item Value Reference Range Interpretation Comments Basophils % (Manual) (test code = 07498-7) 1 0-1.5 [facility] HeightsPlatelet Oxjzmarh3827-72-30 07:59:00* Test Item Value Reference Range Interpretation Comments Platelet Estimate (test code = 98334-8) ADEQUATE [facility] HeightsPlatelet Morphology Jrinetr9671-13-74 07:59:00* Test Item Value Reference Range Interpretation Comments Platelet Morphology Comment (test code = 18172-7) NORMAL [facility] HeightsRed Cell Morphology Ammpmvx3666-63-23 07:59:00* Test Item Value Reference Range Interpretation Comments Red Cell Morphology Comment (test code = 6742-1) NORMAL [facility] HeightsDifferential Total Cells Counted 2018-12-14 07:59:00* Test Item Value Reference Range Interpretation Comments Differential Total Cells Counted (test code = Differen tial Total Cells Counted) 100 [facility] HeightsNeutrophils % (Manual)2018-12-14 07:59:00 * Test Item Value Reference Range Interpretation Comments Neutrophils % (Manual) (test code = 25077-0) 59 40-74 [facility] HeightsLymphocytes % (Manual)2018-12-14 07:59:00 * Test Item Value Reference Range Interpretation Comments Lymphocytes % (Manual) (test code = 737-7) 27 19-48 [facility] HeightsMonocytes % (Manual)2018-12-14 07:59:00* Test Item Value Reference Range Interpretation Comments Monocytes % (Manual) (test code = 744-3) 10 3.4-9.0 H [facility] HeightsEosinophils % (Manual)2018-12-14 07:59:00 * Test Item Value Reference Range Interpretation Comments Eosinophils % (Manual) (test code = 714-6) 3 0-7 [facility] HeightsBasophils % (Manual)2018-12-14 07:59:00* Test Item Value Reference Range Interpretation Comments Basophils % (Manual) (test code = 23344-5) 1 0-1.5 [facility] HeightsPlatelet Vgcmqjmo7661-36-40 07:59:00* Test Item Value Reference Range Interpretation Comments Platelet Estimate (test code = 70071-1) ADEQUATE [facility] HeightsPlatelet Morphology Sdzijqg7877-86-56 07:59:00* Test Item Value Reference Range Interpretation Comments Platelet Morphology Comment (test code = 35095-4) NORMAL [facility] HeightsRed Cell Morphology Ihkessu9464-35-41 07:59:00* Test Item Value Reference Range Interpretation Comments Red Cell Morphology Comment (test code = 6742-1) NORMAL [facility] Centerodium Sbyjj3061-78-19 06:03:00* Test Item Value Reference Range Interpretation Comments Sodium Level (test code = 2951-2) 141 136-145 [facility] HeightsPotassium Rzxce3980-47-80 06:03:00* Test Item Value Reference Range Interpretation Comments Potassium Level (test code = 2823-3) 4.7 3.5-5.1 [facility] HeightsChloride Mlubo0518-96-68 06:03:00* Test Item Value Reference Range Interpretation Comments Chloride Level (test code = 2075-0) 107 98-107 [facility] HeightsCarbon Dioxide Gtwbz4532-46-88 06:03:00* Test Item Value Reference Range Interpretation Comments Carbon Dioxide Level (test code = 2028-9) 25 22-29 [facility] HeightsAnion Eox8672-31-20 06:03:00* Test Item Value Reference Range Interpretation Comments Anion Gap (test code = 78616-3) 13.7 8-16 [facility] HeightsBlood Urea Xjnfxanp3330-43-50 06:03:00* Test Item Value Reference Range Interpretation Comments Blood Urea Nitrogen (test code = 3094-0) 13 7-26 [facility] HeightsCreatinine2019-03-16 06:03:00* Test Item Value Reference Range Interpretation Comments Creatinine (test code = 2160-0) 0.71 0.57-1.11 [facility] HeightsBUN/Creatinine Cjeyz8658-27-89 06:03:00* Test Item Value Reference Range Interpretation Comments BUN/Creatinine Ratio (test code = 3097-3) 18 6-25 [facility] HeightsEstimat Glomerular Filtration Rate 2018-12-14 06:03:00* Test Item Value Reference Range Interpretation Comments Estimat Glomerular Filtration Rate (test code = 476644325) > 60 >60 Ranges were taken from the National Kidney Disease Education Program and the [facility] literature.Reference ranges:60 or greater: Favbxm15-32 ( for 3 consecutive months): Chronic kidney disease 15 or less: Kidney failureSeton Medical Center Harker HeightsGlucose Dcdvj8506-58-02 06:03:00* Test Item Value Reference Range Interpretation Comments Glucose Level (test code = NYM2025) 99 74-118 [facility] HeightsCalcium Hmfys1500-86-91 06:03:00* Test Item Value Reference Range Interpretation Comments Calcium Level (test code = 20008-0) 8.3 8.4-10.2 L [facility] HeightsWhite Blood Rajeh1198-04-37 05:42:00* Test Item Value Reference Range Interpretation Comments White Blood Count (test code = 6690-2) 6.71 4.8-10.8 [facility] HeightsRed Blood Opiyg9955-92-22 05:42:00* Test Item Value Reference Range Interpretation Comments Red Blood Count (test code = 789-8) 3.48 3.6-5.1 L [facility] HeightsHemoglobin2019-03-16 05:42:00* Test Item Value Reference Range Interpretation Comments Hemoglobin (test code = 10859-4) 11.0 12.0-16.0 L [facility] HeightsHematocrit2019-03-16 05:42:00* Test Item Value Reference Range Interpretation Comments Hematocrit (test code = 4544-3) 33.5 34.2-44.1 L [facility] HeightsMean Corpuscular Vvmkrw7609-32-58 05:42:00* Test Item Value Reference Range Interpretation Comments Mean Corpuscular Volume (test code = 787-2) 96.3 81-99 [facility] HeightsMean Corpuscular Znkiefmbtj2699-86-25 05:42:00* Test Item Value Reference Range Interpretation Comments Mean Corpuscular Hemoglobin (test code = 785-6) 31.6 28-32 [facility] HeightsMean Corpuscular Hemoglobin Concent 2018-12-14 05:42:00* Test Item Value Reference Range Interpretation Comments Mean Corpuscular Hemoglobin Concent (test code = 786-4) 32.8 31-35 [facility] HeightsRed Cell Distribution Brryt7278-16-41 05:42:00* Test Item Value Reference Range Interpretation Comments Red Cell Distribution Width (test code = 86311-8) 13.4 11.7 -14.4 [facility] HeightsPlatelet Nxgcf0158-49-34 05:42:00* Test Item Value Reference Range Interpretation Comments Platelet Count (test code = 777-3) 238 140-360 [facility] HeightsNeutrophils (%) (Auto)2018-12-14 05:42:00 * Test Item Value Reference Range Interpretation Comments Neutrophils (%) (Auto) (test code = 18502-8) 60.8 38.7-80.0 [facility] HeightsLymphocytes (%) (Auto)2018-12-14 05:42:00 * Test Item Value Reference Range Interpretation Comments Lymphocytes (%) (Auto) (test code = 736-9) 26.1 18.0-39.1 [facility] HeightsMonocytes (%) (Auto)2018-12-14 05:42:00* Test Item Value Reference Range Interpretation Comments Monocytes (%) (Auto) (test code = 5905-5) 9.7 4.4-11.3 [facility] HeightsEosinophils (%) (Auto)2018-12-14 05:42:00 * Test Item Value Reference Range Interpretation Comments Eosinophils (%) (Auto) (test code = 713-8) 2.7 0.0-6.0 [facility] HeightsBasophils (%) (Auto)2018-12-14 05:42:00* Test Item Value Reference Range Interpretation Comments Basophils (%) (Auto) (test code = 706-2) 0.3 0.0-1.0 [facility] HeightsIM GRANULOCYTES %2018-12-14 05:42:00* Test Item Value Reference Range Interpretation Comments IM GRANULOCYTES % (test code = IM GRANULOCYTES %) 0.4 0.0- 1.0 [facility] HeightsNeutrophils # (Auto)2018-12-14 05:42:00* Test Item Value Reference Range Interpretation Comments Neutrophils # (Auto) (test code = 751-8) 4.1 2.1-6.9 [facility] HeightsLymphocytes # (Auto)2018-12-14 05:42:00* Test Item Value Reference Range Interpretation Comments Lymphocytes # (Auto) (test code = 19100-3) 1.8 1.0-3.2 [facility] HeightsMonocytes # (Auto)2018-12-14 05:42:00* Test Item Value Reference Range Interpretation Comments Monocytes # (Auto) (test code = 742-7) 0.7 0.2-0.8 [facility] HeightsEosinophils # (Auto)2018-12-14 05:42:00* Test Item Value Reference Range Interpretation Comments Eosinophils # (Auto) (test code = 711-2) 0.2 0.0-0.4 [facility] HeightsBasophils # (Auto)2018-12-14 05:42:00* Test Item Value Reference Range Interpretation Comments Basophils # (Auto) (test code = 704-7) 0.0 0.0-0.1 [facility] HeightsAbsolute Immature Granulocyte (auto 2018-12-14 05:42:00* Test Item Value Reference Range Interpretation Comments Absolute Immature Granulocyte (auto (sin t code = Absolute Immature Granulocyte (auto) 0.03 0-0.1 [facility] HeightsMagnesium Aexrw5508-13-97 05:41:00* Test Item Value Reference Range Interpretation Comments Magnesium Level (test code = 58604-8) 1.8 1.3-2.1 [facility] [id number] 12:32:00* Test Item Value Reference Range Interpretation Comments Creatine Kinase (test code = 2157-6) 73 29-168 [facility] Kinase [id number] 12:32:00* Test Item Value Reference Range Interpretation Comments Creatine Kinase MB (test code = 75257-1) 1.50 0-5.0 [facility]Troponin [id number] 12:32:00* Test Item Value Reference Range Interpretation Comments Troponin I (test code = OBI3198) 0.001 0-0.300 [facility]flu[facility] Virus Types A,B Antigen 2018-12-12 20:19:00* Test Item Value Reference Range Interpretation Comments Influenza Virus Types A,B Antigen (test code = 70253-5) NEGATIVE NEGATIVE [facility] Virus Types A,B Antigen 2018-12-12 20:19:00* Test Item Value Reference Range Interpretation Comments Influenza Virus Types A,B Antigen (test code = 44204-5) NEGATIVE NEGATIVE [facility] [id number] 18:56:00* Test Item Value Reference Range Interpretation Comments Urine WBC (test code = 5821-4) 11-20 0-5 H [facility] [id number] 18:56:00* Test Item Value Reference Range Interpretation Comments Urine RBC (test code = 37831-9) 6-10 0-5 H [facility] [id number] 18:56:00* Test Item Value Reference Range Interpretation Comments Urine Bacteria (test code = 80177-9) MODERATE NONE H [facility] Epithelial [id number] 18:56:00 * Test Item Value Reference Range Interpretation Comments Urine Epithelial Cells (test code = 24007-0) FEW NONE [facility] Rmskh3564-10-31 18:42:00* Test Item Value Reference Range Interpretation Comments Urine Color (test code = 5778-6) YELLOW YELLOW [facility] [id number] 18:42:00* Test Item Value Reference Range Interpretation Comments Urine Clarity (test code = 09135-5) CLOUDY CLEAR H [facility] Specific [id number] 18:42:00 * Test Item Value Reference Range Interpretation Comments Urine Specific Cropsey (test code = 5811-5) 1.030 1.010-1.02 5 H [facility] [id number] 18:42:00* Test Item Value Reference Range Interpretation Comments Urine pH (test code = 59920-1) 6 5-7 [facility] Leukocyte [id number] 18:42:00* Test Item Value Reference Range Interpretation Comments Urine Leukocyte Esterase (test code = 5799-2) TRACE NEGATIVE [facility] [id number] 18:42:00* Test Item Value Reference Range Interpretation Comments Urine Nitrite (test code = 73007-4) POSITIVE NEGATIVE [facility] [id number] 18:42:00* Test Item Value Reference Range Interpretation Comments Urine Protein (test code = 5804-0) 1+ NEGATIVE [facility] Glucose (UA)2018-12-12 18:42:00* Test Item Value Reference Range Interpretation Comments Urine Glucose (UA) (test code = 2349-9) NEGATIVE NEGATIVE [facility] [id number] 18:42:00* Test Item Value Reference Range Interpretation Comments Urine Ketones (test code = 03579-6) 1+ NEGATIVE H [facility] Ndmqgovtkkla1463-57-51 18:42:00* Test Item Value Reference Range Interpretation Comments Urine Urobilinogen (test code = 49835-2) 1 0.2-1 [facility] Eexehzwhu4242-45-78 18:42:00* Test Item Value Reference Range Interpretation Comments Urine Bilirubin (test code = 1978-6) NEGATIVE NEGATIVE [facility] Ntsei6509-21-03 18:42:00* Test Item Value Reference Range Interpretation Comments Urine Blood (test code = 92991-2) 3+ [facility]GATIVE [facility] Nat[facility] Hlhaffr9106-79-40 17:59:00* Test Item Value Reference Range Interpretation Comments B-Type Natriuretic Peptide (test code = 65029-0) 24.7 0-100 [facility] Eduzsugaq7163-42-36 17:55:00* Test Item Value Reference Range Interpretation Comments Total Bilirubin (test code = 1975-2) 0.6 0.2-1.2 [facility] HeightsAspart[facility] Amino Transf (AST/SGOT) 2018-12-12 17:55:00* Test Item Value Reference Range Interpretation Comments Aspartate Amino Transf (AST/SGOT) (test code = Aspartate Amino Transf (AST/SGOT)) 29 5-34 [facility] Aminotransferase (ALT/SGPT) 2018-12-12 17:55:00* Test Item Value Reference Range Interpretation Comments Alanine Aminotransferase (ALT/SGPT) (test code = 1742-6) 23 0-55 [facility] Xvnxpba7236-05-12 17:55:00* Test Item Value Reference Range Interpretation Comments Total Protein (test code = 2885-2) 6.7 6.5-8.1 [facility]in2019-03-14 17:55:00* Test Item Value Reference Range Interpretation Comments Albumin (test code = 1751-7) 3.4 3.5-5.0 L [facility]obulin2019-03-14 17:55:00* Test Item Value Reference Range Interpretation Comments Globulin (test code = 39925-3) 3.3 2.3-3.5 [facility]/Globulin Kzirv9911-40-67 17:55:00 * Test Item Value Reference Range Interpretation Comments Albumin/Globulin Ratio (test code = 1759-0) 1.0 0.8-2.0 [facility]kaline Cvpgudqgvun1070-89-73 17:55:00* Test Item Value Reference Range Interpretation Comments Alkaline Phosphatase (test code = 6768-6) 130 40-150 [facility] HeightsProthrombin Iors1306-71-37 17:37:00* Test Item Value Reference Range Interpretation Comments Prothrombin Time (test code = 5902-2) 13.6 11.9-14.5 [facility]thromb Time International Ratio 2018-12-12 17:37:00* Test Item Value Reference Range Interpretation Comments Prothromb Time International Ratio (test code = 6301-6) 0.99 Oral Anticoagulant Therapy INR Values:1. Low Intensity Therapy 1.5 - 2.02 . Moderate Intensity Therapy 2.0 - 3.03. High Intensity Therapy(1) 2.5 - 3. 54. High Intensity Therapy(2) 3.0 - 4.05. Panic Value INR > 5.0 [facility] Partial Thromboplast Time 2018-12-12 17:37:00* Test Item Value Reference Range Interpretation Comments Activated Partial Thromboplast Time (test code = 88855-7) 32.8 23.8-35.5 [facility] HeightsCHEST 2 [id number] 17:17:00 [facility] [address] [place] [address] Patient Name: CASE FONG MR #: [id number] : 1945 Age/Sex: 73/F Req #: [id number] Adm Physician: Ordered by: ROSALINA BARTON MD Report #: [id number] Location: ER Room/Bed: Procedure: [id number] DX/CHEST 2 VIEWS Exam Date: 12/12/18 Exam Time: 1703 REPORT STATUS: Signed EXAMINATI ON: CHEST 2 VIEWS INDICATION: 73-year-old female, shortness of breath and congestion COMPARISON: 04/13/2014 chest radiographs FINDINGS: AP and lateral TUBES and LINES: None. Surgical clips in the esophagog astric junction LUNGS/PLEURA: The lungs are clear. No pleural effusion or pneumothorax. HEART AND MEDIASTINUM: The cardiomediastinal silhouette is u nremarkable. BONES AND SOFT TISSUES: No acute osseous lesion. Soft ti ssues are unremarkable. UPPER ABDOMEN: No free air under the diaphragm. IMPRESSION: No acute thoracic abnormality. Signed by: Nish youssef MD on 12/12/2018 5:18 PM Dictated By: DAV YO MD Elec tronically Signed By: DAV YO MD on 12/12/181717 Transcribed By: ALYSSA on 12/12/181717 COPY TO: ROSALINA BARTON MD MRI BRAIN [id number] 16:10:00 [place] [address] Patient Name: CASE FONG MR #: [id number] : 1945 Age/Sex: 72/F Req #: [id number] Adm Physician: Ordered by: ELSIE SOTO M.D. Report #: [id number] Location: MRI Room/Bed: Procedure: [id number] MRI/MRI BRAIN WOW Exam Da te: Exam Time: REPORT STATUS: Signed EXAMI NATION: MRI of the Sella without and with contrast HISTORY: Prolactinoma COMPARISON: None available TECHNIQUE: Thin section images of the sella cons isting of coronal dynamic T1, sagittal and coronal T1 pre/post contrast, coron al T2. Whole brain DWI/ADC. Intravenous Contrast: 10 mL of MultiHance. FINDINGS: Pituitary gland: Normal in size and configuration, measuring 4.2 mm maximum height with a flat superior contour. Unremarkable neuro and royce nohypophysis. Sella Turcica: Normal in size and configuration. Pituita ry stalk: Well visualized and unremarkable. Optic chiasm: Well visualized a nd unremarkable.. Cavernous sinuses: Normal in size and symmetric. In ternal carotid arteries: Normal flow void appearance. Visualized brain pare nchyma: Normal, no areas of restricted diffusion. IMPRESSION: Normal p ituitary gland. Signed by: Dr. Reuben Perez M.D. on 06/24/2018 4:1 2 PM Dictated By: REUBEN PEREZ MD 1612 Transcribed By: ALYSSA on 06/24/18 1612 COPY TO: ELSIE RICHARDSON M.D.
[2020-05-17 11:38] LABS: INR 0.99; PROTHROMBIN TIME 13.6 seconds (11.9-14.5)
[2020-05-17 11:39] LABS: PARTIAL THROMBOPLASTIN TIME 34.9 seconds (23.8-35.5)
[2020-05-17 11:45] LABS: ALBUMIN 4.2 g/dL (3.5-5.0); ALBUMIN/GLOBULIN RATIO 1.2 (0.8-2.0); ANION GAP 18.3 mmol/L (8-16); CREATININE, SERUM 0.99 mg/dL (0.57-1.11); POTASSIUM 4.3 mmol/L (3.5-5.1)
--- NOTE | 2020-05-17 11:45 | Diagnostic Imaging Report ---
X-ray chest AP portable Comparison: 10/03/2019 History: Fever chills nausea Findings: Central airways are unremarkable. Heart size is normal. Aorta is atherosclerotic but not ectatic. There is no pleural effusion. There is no pneumothorax. Pulmonary leila are unremarkable. There is no focal lung disease. Visualized skeletal structures are remarkable for degenerative changes and scoliosis of the lumbar spine. Surgical katelyn are seen at the thoracoabdominal junction. Could represent a prior GI surgery. Impression: No acute cardiopulmonary disease on this exam. The overall findings suggest emphysema. Clinical correlation is requested. Signed by: Juice Santana MD on 05/17/2020 11:42 AM
[2020-05-17 12:08] LABS: CREATINE KINASE MB 1.3 ng/mL (0-5.0); THYROID STIMULATING HORMONE 1.383 uIU/mL (0.350-4.940)
--- NOTE | 2020-05-17 12:34 | Emergency Department Note ---
History of Present Illnes History of Present Illness Chief Complaint: General Medicine Complaints History of Present Illness This is a 74 year old female with nausea & decreased appetite, unable to eat, she was sent by pcp for further eval says she stopped smoking 4 days ago seen by dr montelongo . Historian: Patient Arrival Mode: Car [employer] Required: No Onset (how long ago): day(s) (4) Radiation: Reports non-radiation Severity: severe Onset quality: gradual Timing of current episode: constant Progression: worsening Chronicity: new Context: Denies recent illness Relieving factors: none Exacerbating factors: none Associated symptoms: Reports denies other symptoms Treatments prior to arrival: none Past Medical/Family History Physician Review I have reviewed the patient's past medical and family history. Any updates have been documented here. Past Medical History Recent Fever: No Clinical Suspicion of Infectio: No New/Unexplained Change in Ment: No Past Medical History: COPD, Hypothyroidism, Migraines, GERD, Chronic Back Pain Other Medical History: HYPOTENSION HYPERTHYROID GASTRIC ULCERS SWELLING TO LEGS hiatal hernia Past Surgical History: Cholecysctectomy, Appendectomy, Hysterectomy, T&A Other Surgery: BILROTH I AND II TAIL BONE REMOVED ROTATOR CUFF LEFT Social History Smoking Cessation: Current some day smoker Counseling Performed: No Alcohol Use: Occasional Any Illegal Drug Use: No TB Exposure/Symptoms: No Physically hurt or threatened: No Other Last Tetanus: UTD Any Pre-Existing Lines (PICC,: No Review of Systems Review of Systems Constitutional: Reports no symptoms EENTM: Reports no symptoms Cardiovascular: Reports no symptoms Respiratory: Reports no symptoms Gastrointestinal: Reports as per HPI Genitourinary: Reports no symptoms Musculoskeletal: Reports no symptoms Integumentary: Reports no symptoms Neurological: Reports no symptoms Psychological: Reports no symptoms Endocrine: Reports no symptoms Hematological/Lymphatic: Reports no symptoms Physical Exam Related Data Allergies: Coded Allergies: hydrocodone (Verified Allergy, Mild, 12/12/18) propoxyphene (Verified Allergy, Mild, 12/12/18) sumatriptan (Verified Allergy, Mild, 12/12/18) Triage Vital Signs Vital Signs Date Time Temp Pulse Resp B/P (MAP) Pulse Ox O2 Delivery O2 Flow Rate FiO2 05/17/20 11:00 98.3 81 18 105/65 97 Room Air Vital signs reviewed: Yes Physical Exam CONSTITUTIONAL Constitutional: Present well-developed, Present well-nourished HENT HENT: Present normocephalic, Present atraumatic, Present mucosae dry, Present nose normal HENT L/R: Present left ext ear normal, Present right ext ear normal EYES Eyes: Reports PERRL, Reports conjunctivae normal NECK Neck: Present ROM normal PULMONARY Pulmonary: Present effort normal, Present breath sounds normal CARDIOVASCULAR Cardiovascular: Present regular rhythm, Present heart sounds normal, Present capillary refill normal, Present normal rate GASTROINTESTINAL Abdominal: Present soft, Present nontender, Present bowel sounds normal GENITOURINARY Genitourinary: Present exam deferred SKIN Skin: Present warm, Present dry MUSCULOSKELETAL Musculoskeletal: Present ROM normal NEUROLOGICAL Neurological: Present alert, Present oriented x 3, Present no gross motor or sensory deficits PSYCHOLOGICAL Psychological: Present mood/affect normal, Present judgement normal Results Laboratory Result Diagram: 05/17/20 1112 05/17/20 1112 Laboratory Laboratory Tests Test 05/17/20 11:12 White Blood Count 10.59 x10e3/uL (4.8-10.8) Red Blood Count 4.68 x10e6/uL (3.6-5.1) Hemoglobin 15.7 g/dL (12.0-16.0) Hematocrit 46.1 % (34.2-44.1) Mean Corpuscular Volume 98.5 fL (81-99) Mean Corpuscular Hemoglobin 33.5 pg (28-32) Mean Corpuscular Hemoglobin Concent 34.1 g/dL (31-35) Red Cell Distribution Width 12.1 % (11.7-14.4) Platelet Count 345 x10e3/uL (140-360) Neutrophils (%) (Auto) 71.5 % (38.7-80.0) Lymphocytes (%) (Auto) 20.6 % (18.0-39.1) Monocytes (%) (Auto) 6.3 % (4.4-11.3) Eosinophils (%) (Auto) 0.7 % (0.0-6.0) Basophils (%) (Auto) 0.4 % (0.0-1.0) Neutrophils # (Auto) 7.6 (2.1-6.9) Lymphocytes # (Auto) 2.2 (1.0-3.2) Monocytes # (Auto) 0.7 (0.2-0.8) Eosinophils # (Auto) 0.1 (0.0-0.4) Basophils # (Auto) 0.0 (0.0-0.1) Absolute Immature Granulocyte (auto 0.05 x10e3/uL (0-0.1) Prothrombin Time 13.6 seconds (11.9-14.5) Prothromb Time International Ratio 0.99 Activated Partial Thromboplast Time 34.9 seconds (23.8-35.5) Sodium Level 138 mmol/L (136-145) Potassium Level 4.3 mmol/L (3.5-5.1) Chloride Level 99 mmol/L (98-107) Carbon Dioxide Level 25 mmol/L (22-29) Anion Gap 18.3 mmol/L (8-16) Blood Urea Nitrogen 27 mg/dL (7-26) Creatinine 0.99 mg/dL (0.57-1.11) Estimat Glomerular Filtration Rate 55 ML/MIN (60-) BUN/Creatinine Ratio 27 (6-25) Glucose Level 93 mg/dL (74-118) Calcium Level 10.0 mg/dL (8.4-10.2) Magnesium Level 2.0 MG/DL (1.3-2.1) Total Bilirubin 1.5 mg/dL (0.2-1.2) Aspartate Amino Transf (AST/SGOT) 26 IU/L (5-34) Alanine Aminotransferase (ALT/SGPT) 20 IU/L (0-55) Alkaline Phosphatase 93 IU/L (40-150) Creatine Kinase 71 IU/L (29-168) Creatine Kinase MB 1.30 ng/mL (0-5.0) Troponin I 0.040 ng/mL (0-0.300) Total Protein 7.8 g/dL (6.5-8.1) Albumin 4.2 g/dL (3.5-5.0) Globulin 3.6 g/dL (2.3-3.5) Albumin/Globulin Ratio 1.2 (0.8-2.0) Thyroid Stimulating Hormone (TSH) 1.383 uIU/mL (0.350-4.940) Lab results reviewed: Yes Imaging Imaging results reviewed: Yes Procedures 12 Lead ECG Interpretation ECG Interpretation : ECG: ECG 1 [employer] Chief: Interpreted by ED physician Date: May 17, 2020 Time: 11:24 Rhythm: sinus rhythm Rate: normal (66) QRS axis: normal ST segments normal: Yes T waves normal: Yes Clinical Impression: normal ECG Assessment & Plan Medical Decision Making MDM dehydration, decr oral intake, h/o hiatal hernia & esoph spasm - check cbc, chem, cardiacs, ecg, I spoke with Dr Elsa awad pt admitted Reassessment Reassessment admit to Elsa Assessment & Plan Final Impression: (1) Dehydration (2) Nausea Depart Disposition: ADMITTED Last Vital Signs Date Time Temp Pulse Resp B/P (MAP) Pulse Ox O2 Delivery O2 Flow Rate FiO2 05/17/20 11:00 98.3 81 18 105/65 97 Room Air Home Meds Active Scripts Albuterol Sulf* (PROAIR HFA INHALER*) 8.5 Gm Inh, 2 INH INH Q4HR PRN for SHORTN ESS OF BREATH, #1 INH 0 Refills Prov:SANDRA NOLASCO MD, ABIM 12/13/18 Budesonide/Formoterol Fumarate (SYMBICORT 80-4.5 MCG INHALER) 10.2 Gm Hfa.aer.ad, 2 INH INH BID, #1 INH 4 Refills Prov:SANDRA NOLASCO MD, ABIM 12/13/18 Reported Medications [Megace] No Conflict Check, 40 MG PO BID, #60 10/06/19 [mometasone] No Conflict Check, 0.1 APPLIC TOP 10/03/19 Multivitamin (MULTI-VITAMIN DAILY) 1 Each Tablet, 1 TAB PO DAILY 10/03/19 [vitamin d] No Conflict Check, 1000 MG PO DAILY 10/03/19 [calcium] No Conflict Check, 1000 MG PO DAILY 10/03/19 [collagen] No Conflict Check, 3000 MG PO DAILY 10/03/19 Potassium Chloride (POTASSIUM CHLORIDE) 20 Meq Tab.er.prt, 20 MEQ PO PRN 10/03/19 Carbinoxamine Maleate (CARBINOXAMINE MALEATE) 4 Mg Tablet, 4 MG PO TID 10/03/19 [Cabergolin] No Conflict Check, 0.25 MG PO WEEKLY for TO PREVENT 04/19/19 Gabapentin (GABAPENTIN) 300 Mg Capsule, 600 MG PO TID, #60 CAP 04/19/19 Cyanocobalamin (Vitamin B-12) (LIQUID B-12) 1,000 Mcg/15 Ml Liquid, 0.5 ML PO Q 2 WEEKS 04/19/19 [Forteo] No Conflict Check, 20 MCG PO DAILY 04/17/19 Acetaminophen/Codeine* (TYLENOL # 3*) 1 Ea Tab, 1 TAB PO Q6H PRN for PAIN 12/12/18 Pantoprazole Sodium* (PROTONIX) 40 Mg Tablet.dr, 40 MG PO DAILY 05/12/13 Medications in the ED Pantoprazole Sodium 40 mg ONCE STAT IV ; Start 05/17/20 at 11:06; Stop 05/17/20 at 11:36; Status DC Ondansetron HCl 4 mg ONCE STAT IV Last administered on 05/17/20at 11:29; Admin Dose 4 MG; Start 05/17/20 at 11:06; Stop 05/17/20 at 11:35; Status DC Sodium Chloride 1,000 ml @ 0 mls/hr Q0M STAT IV Last administered on 05/17/20at 11:29; Admin Dose 1,000 MLS/HR; Start 05/17/20 at 11:06; Stop 05/17/20 at 1 1:09; Status DC Ondansetron HCl 4 mg Q4H PRN IV NAUSEA AND VOMITING; Start 05/17/20 at 11:15; Stop 06/16/20 at 11:14 Sodium Chloride 1,000 ml @ 125 mls/hr Q8H IV ; Start 05/17/20 at 11:15; Stop 06/16/20 at 11:14 KEISHA MONTELONGO MD May 17, 2020 12:34
[2020-05-17 14:36] VITALS: BP 108/61
[2020-05-17 14:40] VITALS: BP 108/61
[2020-05-17] MEDS: ONDANSETRON HCL INJ 2MG/ML 2ML 2 MG/ML VIAL IV PRN (15:10)
[2020-05-17 16:18] VITALS: BP 108/44
[2020-05-17] MEDS: PANTOPRAZOLE 40 MG 10ML VIAL IV SCH (16:41)
[2020-05-17] MEDS: MIDODRINE HCL 5 MG TABLET PO SCH (16:49)
[2020-05-17] MEDS ORDERED: MIDODRINE 2.5 MG TAB PO SCH (17:00)
[2020-05-17] MEDS: SODIUM CHLORIDE 0.9% 1000ML 1,000 ML IV SCH (18:30)
--- NOTE | 2020-05-17 19:45 | Diagnostic Imaging Report ---
CT Abdomen And Pelvis with Intravenous Contrast INDICATION: ^ABD PAIN WITH N/V ^[id number] ^1914; history of weight loss; decreased appetite, history of smoking TECHNIQUE: Thin collimation axial images obtained from the diaphragm to the level of the pubic symphysis following the uneventful administration of 100 cc of low osmolar, nonionic intravenous contrast. Dose reduction techniques used: Automated exposure control, adjustment of the mAs and/or kVp according to patient size, standardized low-dose protocol, and/or iterative reconstruction technique. RADIATION DOSE: Total DLP: 149.96 mGy*cm Estimated effective dose: (DLP x 0.015 x size factor) mSv CTDIvol has been reviewed. It is below the limits set by the Radiation Protocol Committee (RPC). COMPARISON: CT abdomen/pelvis 04/24/2019, CT chest 10/04/2019. MRI abdomen 10/03/2019 ABDOMEN FINDINGS: Lung Bases: The lungs are diffusely hyperinflated suggestive of small airways disease. Chronic subsegmental atelectasis/scarring in the posterior lower lobes is stable. Visualized portion of the heart is normal in size. Surgical clips at the GE junction are stable. Small hiatal hernia. Liver: Normal attenuation. No evidence for mass. 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 Gallbladder: Absent. No intrahepatic bile dilatation. The common bile duct measures 8 mm in diameter without evidence of filling defect. Pancreas: Normal attenuation without mass or ductal dilatation. Spleen: Normal in size. Subtle low attenuating lesion in the inferior pole measures 3 mm and is stable. Calcification in the anterior-inferior pole is stable. Adrenal Glands: Mild thickening of the adrenal glands, left greater than right, are stable. No discrete nodule. Kidneys: Right: Normal enhancement. No soft tissue mass. No hydronephrosis. Left: Normal enhancement. 2 adjacent calcifications in the interpolar region are redemonstrated with a combined size of 6 mm. No soft tissue mass. No hydronephrosis. Lymph Nodes: No enlarged abdominal or periaortic lymph nodes. 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 Normal in diameter with scattered calcifications. PELVIS FINDINGS: Bowel: Stomach/small bowel: Postoperative changes of the stomach are stable suggestive of Aleshia-en-Y bypass. Small bowel loops are normal in diameter with normal wall thickness. Large Bowel: Collapsed. Diffuse diverticulosis coli. No associated inflammation. Appendix: Not visualized. Bladder: Underdistended but otherwise normal. The uterus is absent. No adnexal mass. Peritoneum/retroperitoneum: No free fluid or fluid collection. No free air. Bones: Stable dextroscoliosis. No compression fractures. Bone islands in the right acetabulum and right femur are stable. Soft tissues: Unremarkable IMPRESSION: 1. Stable postoperative changes of the bowel. Diverticulosis coli. No evidence of bowel obstruction or inflammation. 2. Stable left intrarenal calculi. No obstructive uropathy. 3. No mass or lymphadenopathy to explain pain or weight loss. 4. 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 Signed by: Dr. Jovita Nuñez MD on 05/17/2020 7:42 PM
[2020-05-17 20:00] VITALS: BP 116/45
[2020-05-17] MEDS: BUDESONIDE/FORMOTEROL FUMARATE 80/4.5MCG 6.9 GM INH AEROSOL IH SCH (20:50)
[2020-05-17] MEDS ORDERED: SODIUM CHLORIDE 0.9% 50ML 50 ML ONE (20:58)
[2020-05-17] MEDS ORDERED: IOPAMIDOL 370 MG/ML 200 ML INFUS..BTL INJ ONE (20:58)
[2020-05-17 21:00] VITALS: BP 116/45
[2020-05-17] MEDS: GABAPENTIN 300 MG CAP PO SCH (21:47)
[2020-05-17 22:55] LABS: CLARITY,URINE CLEAR (CLEAR); COLOR,URINE YELLOW (YELLOW); KETONES,URINE 2+ (NEGATIVE); LEUKOCYTE ESTERASE ,URINE NEGATIVE (NEGATIVE); NITRITE,URINE NEGATIVE (NEGATIVE); PROTEIN,URINE DIPSTICK NEGATIVE (NEGATIVE); URINE UROBILINOGEN 1 mg/dL (0.2 - 1)
[2020-05-17 22:56] LABS: BILIRUBIN,URINE NEGATIVE (NEGATIVE)
[2020-05-17 22:57] LABS: BACTERIA,URINE FEW /HPF; EPITHELIAL CELLS,URINE FEW /LPF; WBC,URINE (MAN) 0-5 /HPF (0-5)
[2020-05-18] VITALS (8 sets, daily range): BP systolic 100–111; BP diastolic 46–58
--- NOTE | 2020-05-18 00:19 | History and Physical ---
CHIEF COMPLAINT: Intractable nausea and vomiting associated with diarrhea. HISTORY OF PRESENT ILLNESS: The patient is a 74-year-old female, came in with increasing abdominal pain associated with nausea, vomiting, and decreased appetite. The patient was having progressive weight loss. She had workup in the past back in October 2019, for the similar problem. It turned out that the patient has early COPD and subsequently she stopped smoking. She stopped smoking approximately 4 days ago and subsequently now with diarrhea, abdominal pain, and increase in nausea and vomiting. She seemed to be dehydrated. The patient's lab work shown BUN and creatinine of 27 and 0.9. Her sodium level was normal. Total bilirubin is 1.5. The patient's imaging test scan of abdomen and pelvis on admission showed diverticulosis coli. No bowel obstruction. Stable left intrarenal calculi, no obstruction. No mass or lymphadenopathy. 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 The patient is otherwise stable at this time. Other than abdominal pain, nausea and vomiting, she did not have any chest pain or distress. No shortness of breath. PAST MEDICAL HISTORY: 1. Chronic weight loss with progressive decline, secondary to emphysema. 2. History of Billroth II surgery previously. 3. Smoker. 4. Portal hypertension. 5. Reflux. 6. Progressive weight loss. 7. Progressive adult failure to thrive. 8. Eight osteoporosis. PAST SURGICAL HISTORY: Billroth II. SOCIAL HISTORY: The patient is a smoker. She denies alcohol usage. No regular drug. ALLERGIES: TO HYDROCODONE, PROPOXYPHENE, AND SUMATRIPTAN. HOME MEDICATIONS: 1. Tylenol #3. 2. Albuterol inhaler. 3. Symbicort inhaler. 4. B12. 5. Gabapentin. 6. Protonix. 7. Multivitamin. 8. Potassium. 9. Forteo. 10. Megace. 11. Calcium supplement. 12. Vitamin D3. REVIEW OF SYSTEMS: As above. PHYSICAL EXAMINATION: VITAL SIGNS: Temperature is 98, blood pressure 105/65, pulse rate is 64, respirations 18. GENERAL: The patient is not in acute distress. She is awake. HEENT: Normocephalic, atraumatic. She is anicteric. NECK: Supple grossly. PULMONARY: Diminished breath sounds without any wheezing or rales. CARDIOVASCULAR: S1, S2. Regular rate and rhythm. ABDOMEN: Soft, non-distention. Generalized discomfort. No rebound or guarding. EXTREMITIES: No cyanosis or edema. NEUROLOGIC: No focal deficits . LABORATORY DATA: Sodium is 138, potassium 4.3, chloride 99, bicarb 25. BUN is 27, creatinine 0.9, glucose is 93. WBC 10.6, hemoglobin 15, hematocrit 46, platelets 345. CT scan of the abdomen and pelvis, diverticulosis coli. Un-obstructive left intrarenal calculi. 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 Chest x-ray, no acute cardiopulmonary process. Overall findings suggest emphysema. IMPRESSION: 1. Progressive weight loss, most likely secondary to smoking with emphysema. 2. Progressive adult failure to thrive. 3. Acute gastroenteritis associated with dehydration, nausea, vomiting. 4. Multiple chronic baseline medical problems. PLAN: IV fluid support. Empiric treatment with Rocephin. Supportive measure with home medication, pain medication, antiemetic. Rehydration with IV fluids as mentioned above. We will monitor the patient closely and adjust her medication. Resume home medication. Hold off some of the medication, not necessary in the acute setting at this time. MD FIDELINA Gallego/MODL /[id number] cc: Eriberto Lozada MD
[2020-05-18] MEDS: SODIUM CHLORIDE 0.9% 1000ML 1,000 ML IV SCH ×3 (00:30→14:29)
[2020-05-18 05:15] LABS: BASOPHILS % 0.6 % (0.0-1.0); EOSINOPHILS # (AUTO) 0.1 (0.0-0.4); EOSINOPHILS % 1.7 % (0.0-6.0); HEMATOCRIT 36.8 % (34.2-44.1); HEMOGLOBIN 12.1 g/dL (12.0-16.0); LYMPHOCYTES % 31.1 % (18.0-39.1); MEAN CORPUSCULAR HEMOGLOBIN 32.9 pg (28-32); MEAN CORPUSCULAR HGB CONC 32.9 g/dL (31-35); MONOCYTES # (AUTO) 0.6 (0.2-0.8); MONOCYTES % 8.7 % (4.4-11.3); NEUTROPHILS # (AUTO) 3.7 (2.1-6.9); NEUTROPHILS % 57.6 % (38.7-80.0); PLATELET COUNT 241 x10e3/uL (140-360); RED BLOOD COUNT 3.68 x10e6/uL (3.6-5.1)
[2020-05-18 06:04] LABS: ALANINE AMINOTRANSFERASE 13 IU/L (0-55); ALBUMIN/GLOBULIN RATIO 1.3 (0.8-2.0); ALKALINE PHOSPHATASE 65 IU/L (40-150); ANION GAP 16.5 mmol/L (8-16); BLOOD UREA NITROGEN 15 mg/dL (7-26); BUN/CREATININE RATIO 19 (6-25); CARBON DIOXIDE 19 mmol/L (22-29); CHLORIDE 110 mmol/L (98-107); CREATININE, SERUM 0.79 mg/dL (0.57-1.11); EST GLOMERULAR FILTRATION RATE > 60 ML/MIN (60-); GLUCOSE 65 mg/dL (74-118); POTASSIUM 4.5 mmol/L (3.5-5.1); SODIUM 141 mmol/L (136-145)
[2020-05-18] MEDS: BUDESONIDE/FORMOTEROL FUMARATE 80/4.5MCG 6.9 GM INH AEROSOL IH SCH ×2 (06:50→19:12)
--- NOTE | 2020-05-18 07:00 | NUR ---
RECEIVED PATIENT RESTING IN BED NO S/S OF DISTRESS. BED LOW, WHEELS LOCKED, SIDE RAILS X2. CALL LIGHT IN REACH WILL CONTINUE TO MONITOR PATIENT.
[2020-05-18] MEDS: GABAPENTIN 300 MG CAP PO SCH ×3 (08:36→21:20)
[2020-05-18] MEDS: ONDANSETRON HCL INJ 2MG/ML 2ML 2 MG/ML VIAL IV PRN (08:36)
[2020-05-18] MEDS: MULTIVITAMINS/MINERALS TAB PO SCH (08:36)
[2020-05-18] MEDS: MIDODRINE HCL 5 MG TABLET PO SCH ×2 (08:36→16:56)
[2020-05-18] MEDS: PANTOPRAZOLE 40 MG 10ML VIAL IV SCH ×2 (08:36→16:56)
[2020-05-18] MEDS ORDERED: OYST-CAL-D 500MG TABLET PO SCH (09:00)
[2020-05-18] MEDS ORDERED: VITAMIN D 1000 MG PO SCH (09:00)
[2020-05-18] MEDS ORDERED: CALCIUM 1000 MG PO SCH (09:00)
[2020-05-18] MEDS ORDERED: CHOLECALCIFEROL 1,000 UNIT TAB PO SCH (09:00)
[2020-05-18] MEDS ORDERED: COLLAGEN PO SCH (09:00)
[2020-05-18] MEDS: CEFTRIAXONE SOD 1 GM/NS 50 ML 50 ML IV SCH (10:09)
[2020-05-18] MEDS: METRONIDAZOLE 500MG/NS 100ML 100 ML IV SCH ×2 (10:53→17:00)
--- NOTE | 2020-05-18 19:12 | NUR ---
Nutrition Intervention Note RD Recommendation(s) for Physician: - ADAT to GI Soft, no concentrated sweets diet - Recommend Glucerna Shakes BID for adequacy - Recommend MVI with minerals once daily for adequacy - Consider resuming Megace per home meds Pt meets criteria for moderate protein calorie malnutrition Plan of Care: RD following, diet and ONS rec's, monitoring for tolerance and adequacy Nutrition reason for involvement: MD consult RD Assessment 05/18: 74 YOF admitted for dehydration and intractable N/V. Pt seen today per MD consult. 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 Pt reports eating well prior to onset of symptoms, pt states she's "not a big eater because of my surgery"- pt with hx of Billroth II gastric bypass. Pt reports UBW of 93 lb, noted pt weighed 105 lb Oct 2019- progressive wt loss noted. Pt reports she drinks Zidisha supplements at home 1 x per week, pt receptive to Glucerna shakes- RD to order. Pt was on Megace at home x 6 weeks, recommend resuming inpatient. All questions and concerns addressed at time of visit. Chart reviewed. Will continue to monitor. Principal Problems/Diagnoses: intractable N/V, dehydration PMH: Billroth II, portal HTN, reflux, osteoporosis GI: abd soft, NT, + BS Skin: intact Labs: 05/18: Na 141, K 4.5, BUN 15, Cr 0.79, Gluc 65 Meds: gabapentin, abx, MVI with minerals, protonix, zofran IVF: NS at 100 ml/hr Ht: 62 in Wt: 88lb BMI: 16.1 kg/m2 IBW: 110 lb Malnutrition Evaluation (05/18/20) The patient meets criteria for MODERATE protein-calorie malnutrition. Energy intake: Moderate- < 50% of estimated needs for 5 days Weight loss: Severe- 6% wt loss in 1 month Fat loss: Mild, eyes slightly hollow Muscle loss: Mild, clavicle visible Supporting Evidence: Fluid accumulation: none Functional Status: no changes per pt Nutrition Prescription (Diet Order): full liquids Estimated Nutritional Needs: 1800-8483 calories/day (30-35 kcal/kg CBW) 52-80 g protein/day (1.3-2 g pro/kg CBW) Diet Adequacy: Not meeting calorie needs, Not meeting protein needs Diet Tolerance: tolerating full liquids Diet Education Needs Assessment: Diet education not indicated, patient on temporary/transition diet. 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 Goal: Patient will meet 75-100% of estimated needs by follow up Progress: N/A Interventions: -General healthful diet, fiber, fluid modified diet, Commercial beverage, Recommended Modifications, Multivitamin/mineral supplement therapy, Collaboration with other providers Monitoring/Evaluation: -Total energy intake, Total protein intake, Formula/Solution, Prescription medication, Modified diet, Liquid supplement, Weight change Signed: Stephani Dykes RD, LD, CNSC
--- NOTE | 2020-05-18 19:24 | NUR ---
RECEIVED BEDSIDE SHIFT REPORT FROM DAY RN. PT IS ALERT AND ORIENTED X4. RESPIRATIONS ARE EVEN AND UNLABORED. PIV 20 G LEFT WRIST PATENT WITH HEALTHY SITE. NS INFUSING AT 100 ML/HR. PT IV ABT CHANGED TO ROCHEPHIN AND FLAGYL.CALL LIGHT WITHIN REACH. PT REPORTING LIQUID STOOLS. PT REPORTS TOLERATING FULL LIQUID DIET.
[2020-05-19] VITALS (7 sets, daily range): BP systolic 102–116; BP diastolic 40–58
[2020-05-19] MEDS: METRONIDAZOLE 500MG/NS 100ML 100 ML IV SCH ×3 (02:08→17:00)
[2020-05-19] MEDS: BUDESONIDE/FORMOTEROL FUMARATE 80/4.5MCG 6.9 GM INH AEROSOL IH SCH ×2 (07:42→19:50)
[2020-05-19] MEDS: PANTOPRAZOLE 40 MG 10ML VIAL IV SCH ×2 (08:41→17:00)
[2020-05-19] MEDS: CEFTRIAXONE SOD 1 GM/NS 50 ML 50 ML IV SCH (08:41)
[2020-05-19] MEDS: ONDANSETRON HCL INJ 2MG/ML 2ML 2 MG/ML VIAL IV PRN (09:02)
[2020-05-19] MEDS: MIDODRINE HCL 5 MG TABLET PO SCH ×2 (09:55→17:00)
[2020-05-19] MEDS: GABAPENTIN 300 MG CAP PO SCH ×3 (09:55→21:21)
[2020-05-19] MEDS: MULTIVITAMINS/MINERALS TAB PO SCH (09:55)
[2020-05-19] MEDS: SODIUM CHLORIDE 0.9% 1000ML 1,000 ML IV SCH ×2 (11:53→21:54)
[2020-05-19] MEDS ORDERED: BISACODYL 5 MG TAB EC PO SCH (18:30)
[2020-05-19] MEDS ORDERED: PEG (High)/E-LYTE SOLN 4,000 ML BTL PO SCH (18:30)
--- NOTE | 2020-05-19 19:15 | NUR ---
Report given to oncoming nurse of patient's status. Resting in bed. AAOX4 to time, person, place, situation. Respirations even and unlabored. Side rails upx2, call light within reach.
--- NOTE | 2020-05-19 19:30 | NUR ---
Received the patient in report.aaox3.no resp.distress.iv fluid running.started to drink golytelly .call light within reach.bed locked and in lowest position.instructed to call for assistance as needed.
--- NOTE | 2020-05-19 21:54 | NUR ---
Pt's own medicine Arameo pen is keeping in the refrigerator.
[2020-05-20] VITALS (8 sets, daily range): BP systolic 103–121; BP diastolic 46–58
--- NOTE | 2020-05-20 00:18 | Consultation ---
DATE OF CONSULTATION: 05/19/2020 HISTORY OF PRESENT ILLNESS: This is a 74-year-old, who presented to the hospital because of several-day history of nausea and with no appetite. She was admitted because of dehydration because she was unable to eat and so, however, since she gets to the hospital, she has been having some diarrhea. Her workup so far revealed that her CBC was okay and bilirubin little bit high on admission, but is back to normal. Her COVID is negative. She did have a CT scan of abdomen and pelvis, which shows diverticulosis. She said that she had incomplete colonoscopy about a year or so ago. 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 ALLERGIES: HYDROCODONE, PROPOXYPHENE, AND SUMATRIPTAN. MEDICATIONS: At home included Tylenol No. 3, albuterol, Symbicort inhaler, gabapentin, Protonix 40, [place], and vitamin D. SOCIAL HISTORY: No alcohol use. FAMILY HISTORY: Noncontributory. REVIEW OF SYSTEMS: Denies any chest pain or shortness of breath. Denies any dysphagia, odynophagia. Denies any dysuria, hematuria, or any kind of syncopal episode. PHYSICAL EXAMINATION: GENERAL: Awake, alert, appears to be stable, not in acute distress at this point. VITAL SIGNS: Afebrile, currently with stable vital signs. HEAD, EYES, EARS, NOSE, AND THROAT: Normocephalic, atraumatic. Sclerae are anicteric. NECK: Supple. HEART: Regular. LUNGS: Sounds clear. ABDOMEN: Soft. There is no distention at this point, and is nontender. EXTREMITIES: No clubbing at this point. LAB VALUES: CBC was okay. Chemistry today is okay. CAT scans diverticulosis, otherwise unremarkable. IMPRESSION: Nausea and diarrhea to the point, that she became dehydrated. The patient also has some history of weight loss and failure to thrive. RECOMMENDATION: We will proceed with EGD and colonoscopy for further evaluation tomorrow and follow labs in Clinic. Wiliam Tavarez MD DHD/MODL /[id number] cc: MD Eriberto Gallego MD
--- NOTE | 2020-05-20 00:30 | NUR ---
Pt is on npo.consent obtained.had multiple times bowel movement.but not yet cleared.drank 3.5 litre golytelly.
[2020-05-20] MEDS: METRONIDAZOLE 500MG/NS 100ML 100 ML IV SCH ×3 (01:36→16:29)
[2020-05-20 05:16] LABS: BASOPHILS % 0.4 % (0.0-1.0); EOSINOPHILS # (AUTO) 0.4 (0.0-0.4); EOSINOPHILS % 5.6 % (0.0-6.0); HEMATOCRIT 32.1 % (34.2-44.1); HEMOGLOBIN 10.6 g/dL (12.0-16.0); LYMPHOCYTES % 29.2 % (18.0-39.1); MEAN CORPUSCULAR HEMOGLOBIN 32.9 pg (28-32); MEAN CORPUSCULAR VOLUME 99.7 fL (81-99); MONOCYTES # (AUTO) 0.7 (0.2-0.8); MONOCYTES % 10.8 % (4.4-11.3); NEUTROPHILS # (AUTO) 3.6 (2.1-6.9); NEUTROPHILS % 53.6 % (38.7-80.0); PLATELET COUNT 205 x10e3/uL (140-360); RED BLOOD COUNT 3.22 x10e6/uL (3.6-5.1); RED CELL DISTRIBUTION WIDTH 12.4 % (11.7-14.4)
[2020-05-20 05:42] LABS: MAGNESIUM 1.5 MG/DL (1.3-2.1)
[2020-05-20 06:19] LABS: ANION GAP 12.5 mmol/L (8-16); BLOOD UREA NITROGEN < 5 mg/dL (7-26); CALCIUM 7.7 mg/dL (8.4-10.2); CARBON DIOXIDE 20 mmol/L (22-29); CHLORIDE 113 mmol/L (98-107); CREATININE, SERUM 0.62 mg/dL (0.57-1.11); EST GLOMERULAR FILTRATION RATE > 60 ML/MIN (60-); GLUCOSE 91 mg/dL (74-118); POTASSIUM 3.5 mmol/L (3.5-5.1); SODIUM 142 mmol/L (136-145)
[2020-05-20 06:21] LABS: BUN/CREATININE RATIO 8 (6-25)
[2020-05-20] MEDS: SODIUM CHLORIDE 0.9% 1000ML 1,000 ML IV SCH (06:32)
--- NOTE | 2020-05-20 07:02 | NUR ---
Javier bath taken.Bed side shift report given to on coming Rn.stable condition.
[2020-05-20] MEDS: PANTOPRAZOLE 40 MG 10ML VIAL IV SCH ×2 (09:35→16:00)
[2020-05-20] MEDS: MIDODRINE HCL 5 MG TABLET PO SCH ×2 (09:35→16:00)
[2020-05-20] MEDS: CEFTRIAXONE SOD 1 GM/NS 50 ML 50 ML IV SCH (09:35)
[2020-05-20] MEDS: MULTIVITAMINS/MINERALS TAB PO SCH (09:36)
[2020-05-20] MEDS: GABAPENTIN 300 MG CAP PO SCH ×3 (09:36→21:43)
[2020-05-20] MEDS: ONDANSETRON HCL INJ 2MG/ML 2ML 2 MG/ML VIAL IV PRN ×2 (11:30→18:15)
--- NOTE | 2020-05-20 13:23 | Operative Report ---
DATE OF PROCEDURE: 05/20/2020 SURGEON: Wiliam Tavarez MD PROCEDURES: 1. Upper endoscopy. 2. Colonoscopy. INDICATIONS: Persistent nausea, diarrhea and weight loss. POSTOPERATIVE DIAGNOSIS: Reflux, diverticulosis, polyp and hemorrhoids. PROCEDURE IN DETAIL: Risks and benefits are discussed with the patient prior to the procedure. The patent understands risks of bleeding, infection, perforation and medication reaction. Consent is signed and secured. The patient is sedated with MAC anesthesia without any problem. The patient is seated comfortably, an Olympus duodenoscope was inserted into the mouth. This was passed all the way into the stomach area. The esophagus appeared to have some changes from reflux. The stomach shows evidence of postsurgical changes from Billroth II anastomosis there appeared to be normal, small bowel appeared to be normal. After repositioning the patient's, rectal exam were performed. An Olympus colonoscope was inserted into the rectum. This was passed all the way into the sigmoid without any problem. was in the cecum, ascending colon, transverse colon, descending colon, and sigmoid colon revealed a polyp in the ascending colon measuring about 4 mm. This was removed with cold snare without any problem and also diverticulosis in the sigmoid distal or descending colon. The patient also has some hemorrhoid. Random biopsies were taken from the colon to rule out microscopic colitis. The patient without any problem. RECOMMENDATIONS: To resume current diet and followup biopsy results and the repeat colonoscopy in about five years. Wiliam Tavarez MD DHD/MODL /[id number] cc: Dg Hunter MD
[2020-05-20] MEDS: ACETAMINOPHEN/CODEINE 300MG - 30MG TAB PO PRN ×2 (16:00→22:30)
[2020-05-20] MEDS ORDERED: LIDOCAINE HCL 2% LOCAL INJ 5 ML SDV VIAL INJ ONE (19:07)
[2020-05-20] MEDS ORDERED: FENTANYL CITRATE/PF 100MCG/2 ML INJ ONE (19:07)
[2020-05-20] MEDS ORDERED: PROPOFOL IV EMULSION 10 MG/ML 20 ML VIAL ONE (19:07)
[2020-05-20] MEDS: BUDESONIDE/FORMOTEROL FUMARATE 80/4.5MCG 6.9 GM INH AEROSOL IH SCH (19:20)
--- NOTE | 2020-05-20 19:20 | NUR ---
Report given to oncoming nurse of patient's status. No s/s of acute distress noted. Side rails upx2, call light within reach.
--- NOTE | 2020-05-20 19:45 | NUR ---
RECEIVED THE PT IN REPORT. EDUCATED PT ABOUT FALL PRECAUTIONS. PT VERBALIZED UNDERSTANDING. BED IS LOW AND LOCKED. SIDE RAILS X2. CALL LIGHT WITH IN EASY REACH. PT DENIES NEEDS AT THIS TIME.
[2020-05-21] VITALS: BP 100/82
[2020-05-21] MEDS: METRONIDAZOLE 500MG/NS 100ML 100 ML IV SCH ×2 (01:49→10:00)
--- NOTE | 2020-05-21 02:00 | NUR ---
No nausea noted.resting in the bed.
[2020-05-21] MEDS: SODIUM CHLORIDE 0.9% 1000ML 1,000 ML IV SCH ×3 (02:26→12:30)
[2020-05-21] MEDS: ACETAMINOPHEN/CODEINE 300MG - 30MG TAB PO PRN (05:05)
[2020-05-21 06:00] VITALS: BP 98/51
[2020-05-21] MEDS: BUDESONIDE/FORMOTEROL FUMARATE 80/4.5MCG 6.9 GM INH AEROSOL IH SCH (06:36)
--- NOTE | 2020-05-21 07:08 | NUR ---
Bed side shift report given to oncoming Rn.stable condition
--- NOTE | 2020-05-21 07:10 | NUR ---
RCD PT AT BED PT IS ALERT AND ORIENTED RESTING ON BED IV PATENT FLUSH BED LOW AND LOCKED CALL LIGHT IN REACH
[2020-05-21] MEDS: MULTIVITAMINS/MINERALS TAB PO SCH (09:00)
[2020-05-21] MEDS: PANTOPRAZOLE 40 MG 10ML VIAL IV SCH (09:00)
[2020-05-21] MEDS: GABAPENTIN 300 MG CAP PO SCH ×2 (09:00→15:00)
[2020-05-21] MEDS: CEFTRIAXONE SOD 1 GM/NS 50 ML 50 ML IV SCH (09:00)
[2020-05-21] MEDS: MIDODRINE HCL 5 MG TABLET PO SCH ×2 (09:00→16:05)
[2020-05-21 09:04] VITALS: BP 128/57
[2020-05-21 09:48] VITALS: BP 128/57
--- NOTE | 2020-05-21 11:30 | NUR ---
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
[2020-05-21] MEDS ORDERED: MAGNESIUM OXID400 MG PO (11:37)
[2020-05-21] MEDS ORDERED: ZOFRAN4 MG SL (11:39)
--- NOTE | 2020-05-21 11:49 | NUR ---
chart picker visited the pt , pt expressed gratitude for life and recovery , chart picker provided pastoral conversation , prayer support and blessings. pt expressed peace . chaplain Shanelle
[2020-05-21 11:55] VITALS: BP 110/49
[2020-05-21] MEDS ORDERED: PANTOPRAZOLE SOD 40 MG TABEC PO SCH (15:45)
[2020-05-21] MEDS ORDERED: ONDANSETRON HCL 4 MG ORAL DISINTEGRATING TAB PO PRN (15:45)
[2020-05-21] MEDS ORDERED: METRONIDAZOLE 500 MG TAB PO SCH ×2 (18:00)
--- NOTE | 2020-05-21 18:16 | NUR ---
PT WENT HOME IN SAFE CONDITION WITH HER SON
--- NOTE | 2020-05-21 23:50 | Discharge Summary ---
PRIMARY CARE PHYSICIAN: Dr. Eriberto Lozada. COMMERCIAL FINANCE ANALYST: Dr. Shawn Garrido. FINAL DIAGNOSES: 1. Status post dehydration, associated with nausea and vomiting. 2. Status post EGD, found to have a very small residual stomach, may be the cause of the patient's nausea, vomiting, and diarrhea post eating. SUMMARY: The patient is a 74-year-old female, came in with significant symptoms of nausea and vomiting, especially after eating and also with diarrhea after eating. The patient had an EGD done. She also had a colonoscopy done as well. She had reflux, diverticulosis, polyps, and hemorrhoids. She has a very small stomach, showed evidence of the postsurgical changes from Billroth II anastomosis. It is appeared to be normal. The patient is otherwise stable. She is doing much better. She has tolerated all her diet today. The stomach remain small, may be the reason for the patient having nausea and vomiting, especially when she increases the amount of food she was eating and then also may have caused some loose stool afterwards, but today she is doing very well. The patient may follow up with Gastroenterology, Dr. Wilima Tavarez, after she goes home. She will continue with her home medication. Antiemetic is given. The patient explained that she needs to eat in small meal more frequently. The patient expressed understanding. The patient was discharged home today. MD FIDELINA Gallego/JONO /[id number]
== END 2020-05-21 18:43 | disposition home or self-care (01) | DRG 640 ==
LOC: ER 11:05 → ERHOLD 11:23 → MED/SURG2 14:09
PROVIDERS: ADMIT Internal Medicine; ATTEND Internal Medicine
PROC: 0DBK8ZX Excision of Ascending Colon, Via Natural or Artificial Opening Endoscopic, Diagnostic (ICD-10-PCS; principal; 2020-05-20 09:00)
PROC: 0DJ08ZZ Inspection of Upper Intestinal Tract, Via Natural or Artificial Opening Endoscopic (ICD-10-PCS; 2020-05-20 09:00)
DX: E86.0 Dehydration (principal); E43 Unspecified severe protein-calorie malnutrition; Z68.1 Body mass index [BMI] 19.9 or less, adult; Z98.890 Other specified postprocedural states; J44.9 Chronic obstructive pulmonary disease, unspecified; E03.9 Hypothyroidism, unspecified; K21.9 Gastro-esophageal reflux disease without esophagitis; Z88.5 Allergy status to narcotic agent; Z88.8 Allergy status to other drugs, medicaments and biological substances; Z90.49 Acquired absence of other specified parts of digestive tract; Z87.891 Personal history of nicotine dependence; R62.7 Adult failure to thrive; Z11.59 Encounter for screening for other viral diseases; K57.30 Diverticulosis of large intestine without perforation or abscess without bleeding; K64.9 Unspecified hemorrhoids; K63.89 Other specified diseases of intestine; D12.2 Benign neoplasm of ascending colon
CPT/HCPCS: 36415; 43239; 45380; 45385; 71045; 74177; 80048; 80053; 81001; 82550; 82553; 83735; 84100; 84443; 84484; 85025; 85610; 85730; 87086; 88305; 93005; 94664; 99284; J0696; J2001; J2405; J3010; J7030; Q9967; U0002

== ENCOUNTER → 2021-11-15 | Day surgery (SDC) | payer MEDICARE, OTHER ==
[2021-11-11 09:23] LABS: BASOPHILS % 0.5 % (0.0-1.0); EOSINOPHILS # (AUTO) 0.2 (0.0-0.4); EOSINOPHILS % 1.8 % (0.0-6.0); HEMATOCRIT 49.2 % (34.2-44.1); HEMOGLOBIN 15.6 g/dL (12.0-16.0); LYMPHOCYTES # (AUTO) 2.6 (1.0-3.2); LYMPHOCYTES % 31.3 % (18.0-39.1); MEAN CORPUSCULAR HEMOGLOBIN 31.8 pg (28-32); MEAN CORPUSCULAR HGB CONC 31.7 g/dL (31-35); MEAN CORPUSCULAR VOLUME 100.2 fL (81-99); MONOCYTES # (AUTO) 0.6 (0.2-0.8); NEUTROPHILS # (AUTO) 4.9 (2.1-6.9); NEUTROPHILS % 58.9 % (38.7-80.0); PLATELET COUNT 288 x10e3/uL (140-360); RED BLOOD COUNT 4.91 x10e6/uL (3.6-5.1); RED CELL DISTRIBUTION WIDTH 12.6 % (11.7-14.4)
[~2021-11-15] MED LIST changes: +CELEBREX200 MG PO; +DIGOXIN125 MCG PO; +FENTANYL CITRATE/PF 100MCG/2 ML INJ ONE; +FLECAINIDE ACE100 MG PO; +HYDROCORTISONE10 MG PO; +MAGNESIUM OXID400 MG PO; +MIDAZOLAM HCL 2 MG/2 ML VIAL ONE; +MIDODRINE HCL5 MG PO; +OR PHACO EYE KIT ONE; +PREOP PHACO EYE KIT ONE; +QUESTRAN PACKET4 GM PO; +SYMBICORT 16010.2 GM INH; +VITAMIN C500 MG PO; +ZINC PO; +ZOFRAN4 MG SL
[2021-11-15 13:20] VITALS: BP 146/70
== END | disposition home or self-care (01) ==
LOC: OR 10:02
PROVIDERS: ATTEND Ophthalmology
DX: H25.12 Age-related nuclear cataract, left eye (principal); E27.40 Unspecified adrenocortical insufficiency; I50.9 Heart failure, unspecified; R00.1 Bradycardia, unspecified; E78.5 Hyperlipidemia, unspecified; J44.9 Chronic obstructive pulmonary disease, unspecified; K21.9 Gastro-esophageal reflux disease without esophagitis; F17.210 Nicotine dependence, cigarettes, uncomplicated; Z01.812 Encounter for preprocedural laboratory examination; Z20.822 Contact with and (suspected) exposure to COVID-19; Z79.52 Long term (current) use of systemic steroids; Z79.899 Other long term (current) drug therapy; Z95.0 Presence of cardiac pacemaker
CPT/HCPCS: 36415; 66984; 85025; U0002; J2250; J3010

== ENCOUNTER 2021-11-23 21:47 | Inpatient (IN) | payer MEDICARE, OTHER ==
[~2021-11-23] VITALS: Ht 157.5 cm; Wt 39.9 kg
[~2021-11-23 21:47] MED LIST changes: -FENTANYL CITRATE/PF 100MCG/2 ML INJ ONE; -MIDAZOLAM HCL 2 MG/2 ML VIAL ONE; -OR PHACO EYE KIT ONE; -PREOP PHACO EYE KIT ONE
[2021-11-23] MEDS ORDERED: DEXAMETHASONE SOD PHOS 10 MG/1 ML VIAL IV ONE (22:00)
[2021-11-23] MEDS ORDERED: ALBUTEROL/IPRATROPIUM 3 ML NEB NEB ONE (22:00)
[2021-11-23 22:06] LABS: BASOPHILS % 0.3 % (0.0-1.0); HEMATOCRIT 46.9 % (34.2-44.1); HEMOGLOBIN 14.6 g/dL (12.0-16.0); LYMPHOCYTES % 10.8 % (18.0-39.1); MEAN CORPUSCULAR HEMOGLOBIN 31.4 pg (28-32); MEAN CORPUSCULAR HGB CONC 31.1 g/dL (31-35); MEAN CORPUSCULAR VOLUME 100.9 fL (81-99); MONOCYTES # (AUTO) 0.6 (0.2-0.8); MONOCYTES % 7.2 % (4.4-11.3); NEUTROPHILS # (AUTO) 7.2 (2.1-6.9); NEUTROPHILS % 80.4 % (38.7-80.0); PLATELET COUNT 250 x10e3/uL (140-360); RED BLOOD COUNT 4.65 x10e6/uL (3.6-5.1); RED CELL DISTRIBUTION WIDTH 12.7 % (11.7-14.4)
[2021-11-23] MEDS ORDERED: NALOXONE HCL INJ 0.4 MG/ML AMP IV STA (22:10)
[2021-11-23] MEDS ORDERED: NALOXONE HCL 2MG/2 ML SYRINGE ONE ×2 (22:19→23:53)
[2021-11-23 22:25] LABS: ALBUMIN 3.4 g/dL (3.5-5.0); ALBUMIN/GLOBULIN RATIO 1.1 (0.8-2.0); ANION GAP 19.7 mmol/L (8-16); CALCIUM 9.1 mg/dL (8.4-10.2); CREATININE, SERUM 1.59 mg/dL (0.57-1.11); POTASSIUM 4.7 mmol/L (3.5-5.1)
[2021-11-23 22:56] LABS: CLARITY,URINE CLEAR (CLEAR); COLOR,URINE YELLOW (YELLOW); KETONES,URINE NEGATIVE (NEGATIVE); LEUKOCYTE ESTERASE ,URINE NEGATIVE (NEGATIVE); NITRITE,URINE NEGATIVE (NEGATIVE); PROTEIN,URINE DIPSTICK 1+ (NEGATIVE); URINE UROBILINOGEN 0.2 mg/dL (0.2 - 1)
[2021-11-23 22:59] LABS: BACTERIA,URINE FEW /HPF; EPITHELIAL CELLS,URINE FEW /LPF; RBC,URINE 0-5 /HPF (0-5); WBC,URINE (MAN) 0-5 /HPF (0-5)
[2021-11-23] MEDS: CEFEPIME 1 GM in SODIUM CHLORIDE 0.9% 50ML 50 ML IV SCH (23:28)
[2021-11-23] MEDS ORDERED: LACTATED RINGER'S 1,000 ML INJ ONE (23:30)
[2021-11-23] MEDS ORDERED: LACTATED RINGER'S 1,000 ML ONE (23:36)
[2021-11-23] MEDS: ALBUTEROL SULF 0.083% NEB SOLN 3 ML NEB NEB PRN (23:45)
[2021-11-24] VITALS (15 sets, daily range): BP systolic 121–166; BP diastolic 50–79
[2021-11-24] MEDS ORDERED: NALOXONE HCL INJ 0.4 MG/ML AMP IV STA (00:04)
[2021-11-24] MEDS: SODIUM CHLORIDE 0.9% 1000ML 1,000 ML IV SCH ×3 (00:20→20:48)
[2021-11-24] MEDS ORDERED: LACTATED RINGER'S 1,000 ML INJ ONE (00:30)
[2021-11-24] MEDS ORDERED: LACTATED RINGER'S 1,000 ML ONE (00:40)
[2021-11-24 01:14] LABS: AMPHETAMINES SCREEN,URINE NEGATIVE (NEGATIVE); BENZODIAZEPINES SCREEN,URINE NEGATIVE (NEGATIVE); PHENCYCLIDINE SCREEN,URINE NEGATIVE (NEGATIVE)
[2021-11-24] MEDS: ALBUTEROL SULF 0.083% NEB SOLN 3 ML NEB NEB PRN (02:00)
[2021-11-24 07:17] LABS: BASOPHILS % 0.3 % (0.0-1.0); HEMATOCRIT 42.5 % (34.2-44.1); HEMOGLOBIN 13.4 g/dL (12.0-16.0); LYMPHOCYTES # (AUTO) 0.5 (1.0-3.2); LYMPHOCYTES % 5.4 % (18.0-39.1); MEAN CORPUSCULAR HGB CONC 31.5 g/dL (31-35); MEAN CORPUSCULAR VOLUME 98.4 fL (81-99); MONOCYTES # (AUTO) 0.6 (0.2-0.8); MONOCYTES % 5.7 % (4.4-11.3); NEUTROPHILS # (AUTO) 8.7 (2.1-6.9); NEUTROPHILS % 86.1 % (38.7-80.0); PLATELET COUNT 211 x10e3/uL (140-360); RED BLOOD COUNT 4.32 x10e6/uL (3.6-5.1); RED CELL DISTRIBUTION WIDTH 12.4 % (11.7-14.4)
[2021-11-24 07:32] LABS: ANION GAP 17.4 mmol/L (8-16); CALCIUM 8.3 mg/dL (8.4-10.2); CREATININE, SERUM 0.98 mg/dL (0.57-1.11); POTASSIUM 4.4 mmol/L (3.5-5.1)
[2021-11-24] MEDS ORDERED: GUAIFENESIN/DEXTROMETHORPHAN LIQD 5 ML UDC NG PRN (08:45)
[2021-11-24] MEDS ORDERED: ACETAMINOPHEN 325 MG TAB PO PRN (08:45)
[2021-11-24] MEDS: FLECAINIDE ACETATE 100 MG TAB PO SCH ×2 (09:00→17:00)
[2021-11-24] MEDS: PANTOPRAZOLE SOD 40 MG TABEC PO SCH (09:00)
[2021-11-24] MEDS: BENZONATATE 100 MG CAP PO SCH ×3 (09:00→21:00)
[2021-11-24] MEDS: LORATADINE 10 MG TAB PO SCH (09:00)
[2021-11-24] MEDS: MULTIVITAMINS/MINERALS TAB PO SCH (09:00)
[2021-11-24] MEDS: GABAPENTIN 300 MG CAP PO SCH ×3 (09:00→21:00)
[2021-11-24] MEDS: METHYLPREDNISOLONE SOD SUCC 40 MG/ML VIAL 1ML IV SCH ×3 (09:49→20:48)
[2021-11-24] MEDS: CEFEPIME 1 GM in SODIUM CHLORIDE 0.9% 50ML 50 ML IV SCH ×2 (09:49→20:30)
[2021-11-24 11:42] LABS: ABG PH 7.31 (7.35-7.45)
[2021-11-24 11:43] LABS: ABG HCO3 34 mmol/L (22-26); ABG PCO2 69 mmHg (35-45); ABG PO2 55 mmHg (80-105); ABG TCO2 36
[2021-11-24] MEDS: ALBUTEROL/IPRATROPIUM 3 ML NEB NEB PRN (13:14)
[2021-11-24] MEDS: LORAZEPAM INJ 2 MG/ML VIAL IV PRN ×2 (13:30→20:57)
[2021-11-24] MEDS ORDERED: CLINDAMYCIN HC300 MG PO (13:32)
[2021-11-24] MEDS ORDERED: ULTRACET TABLE1 EACH PO (13:32)
[2021-11-24] MEDS ORDERED: [UNRECOGNIZED DRUG - OTHER] OP (13:32)
[2021-11-24] MEDS ORDERED: HYDROCORTISONE5 MG PO (13:32)
[2021-11-24] MEDS ORDERED: ZINC50 M2 PO (13:32)
[2021-11-24] MEDS ORDERED: VITAMIN C500 MG PO (13:32)
[2021-11-24] MEDS ORDERED: FLECAINIDE ACET50 MG PO (13:32)
[2021-11-24] MEDS: ENOXAPARIN SOD INJ 40 MG/0.4 ML SYR SC SCH (17:00)
[2021-11-24] MEDS ORDERED: DEXMEDETOMIDINE 400MCG/NS100ML 100 ML IV ONE (19:59)
[2021-11-24] MEDS: DEXMEDETOMIDINE 400MCG/NS100ML 100 ML IV PRN (20:21)
[2021-11-24] MEDS: MONTELUKAST SODIUM 10 MG TAB PO SCH (21:00)
[2021-11-25] VITALS (13 sets, daily range): BP systolic 131–166; BP diastolic 66–83
[2021-11-25] MEDS: METHYLPREDNISOLONE SOD SUCC 40 MG/ML VIAL 1ML IV SCH ×3 (06:00→22:48)
[2021-11-25] MEDS: LORAZEPAM INJ 2 MG/ML VIAL IV PRN (06:59)
[2021-11-25] MEDS: CEFEPIME 1 GM in SODIUM CHLORIDE 0.9% 50ML 50 ML IV SCH ×2 (08:39→21:23)
[2021-11-25] MEDS: GABAPENTIN 300 MG CAP PO SCH ×3 (08:40→21:00)
[2021-11-25] MEDS: PANTOPRAZOLE SOD 40 MG TABEC PO SCH (08:40)
[2021-11-25] MEDS: LORATADINE 10 MG TAB PO SCH (08:40)
[2021-11-25] MEDS: FLECAINIDE ACETATE 100 MG TAB PO SCH ×2 (08:40→16:01)
[2021-11-25] MEDS: BENZONATATE 100 MG CAP PO SCH ×3 (08:40→21:00)
[2021-11-25] MEDS: MULTIVITAMINS/MINERALS TAB PO SCH (08:40)
[2021-11-25] MEDS: SODIUM CHLORIDE 0.9% 1000ML 1,000 ML IV SCH (14:34)
[2021-11-25 15:29] LABS: ABG HCO3 39 mmol/L (22-26); ABG PCO2 62 mmHg (35-45); ABG PO2 213 mmHg (80-105); ABG TCO2 40
[2021-11-25] MEDS: ENOXAPARIN SOD INJ 40 MG/0.4 ML SYR SC SCH (17:34)
[2021-11-25] MEDS: MONTELUKAST SODIUM 10 MG TAB PO SCH (21:00)
[2021-11-25] MEDS: DEXMEDETOMIDINE 400MCG/NS100ML 100 ML IV PRN (22:46)
[2021-11-25] MEDS ORDERED: METHYLPREDNISOLONE SOD SUCC 40 MG/ML VIAL 1ML IV SCH (23:30)
[2021-11-26] VITALS (13 sets, daily range): BP systolic 113–169; BP diastolic 54–83
[2021-11-26] MEDS: METHYLPREDNISOLONE SOD SUCC 40 MG/ML VIAL 1ML IV SCH ×3 (06:12→21:49)
[2021-11-26] MEDS: ALBUTEROL/IPRATROPIUM 3 ML NEB NEB PRN ×5 (07:25→23:40)
[2021-11-26] MEDS ORDERED: FUROSEMIDE INJ 10 MG/ML 2 ML VIAL IV ONE (07:30)
[2021-11-26] MEDS: SODIUM CHLORIDE 0.9% 1000ML 1,000 ML IV SCH (07:37)
[2021-11-26] MEDS: PANTOPRAZOLE SOD 40 MG TABEC PO SCH (09:00)
[2021-11-26] MEDS: FLECAINIDE ACETATE 100 MG TAB PO SCH ×2 (09:00→17:00)
[2021-11-26] MEDS: MULTIVITAMINS/MINERALS TAB PO SCH (09:00)
[2021-11-26] MEDS: BENZONATATE 100 MG CAP PO SCH ×3 (09:00→21:00)
[2021-11-26] MEDS: GABAPENTIN 300 MG CAP PO SCH ×3 (09:00→21:00)
[2021-11-26] MEDS: LORATADINE 10 MG TAB PO SCH (09:00)
[2021-11-26 09:28] LABS: ABG PCO2 41 mmHg (35-45); ABG PH 7.54 (7.35-7.45); ABG PO2 138 mmHg (80-105)
[2021-11-26 09:29] LABS: ABG HCO3 35 mmol/L (22-26); ABG TCO2 36
[2021-11-26] MEDS: CEFEPIME 1 GM in SODIUM CHLORIDE 0.9% 50ML 50 ML IV SCH ×2 (11:37→21:08)
[2021-11-26] MEDS: DEXMEDETOMIDINE 400MCG/NS100ML 100 ML IV PRN (14:12)
[2021-11-26] MEDS: ENOXAPARIN SOD INJ 40 MG/0.4 ML SYR SC SCH (17:49)
[2021-11-26] MEDS: MONTELUKAST SODIUM 10 MG TAB PO SCH (21:00)
[2021-11-27] VITALS (11 sets, daily range): BP systolic 139–166; BP diastolic 70–87
[2021-11-27] MEDS: SODIUM CHLORIDE 0.9% 1000ML 1,000 ML IV SCH (00:17)
[2021-11-27] MEDS: ALBUTEROL/IPRATROPIUM 3 ML NEB NEB PRN ×5 (03:10→23:50)
[2021-11-27] MEDS: DEXMEDETOMIDINE 400MCG/NS100ML 100 ML IV PRN ×3 (03:50→22:00)
[2021-11-27 05:32] LABS: BASOPHILS % 0.1 % (0.0-1.0); HEMATOCRIT 40.8 % (34.2-44.1); HEMOGLOBIN 13.7 g/dL (12.0-16.0); LYMPHOCYTES # (AUTO) 0.5 (1.0-3.2); LYMPHOCYTES % 5.3 % (18.0-39.1); MEAN CORPUSCULAR HEMOGLOBIN 31.1 pg (28-32); MEAN CORPUSCULAR HGB CONC 33.6 g/dL (31-35); MEAN CORPUSCULAR VOLUME 92.7 fL (81-99); MONOCYTES # (AUTO) 0.4 (0.2-0.8); MONOCYTES % 4.8 % (4.4-11.3); NEUTROPHILS # (AUTO) 7.6 (2.1-6.9); PLATELET COUNT 214 x10e3/uL (140-360); RED CELL DISTRIBUTION WIDTH 12.5 % (11.7-14.4)
[2021-11-27 06:05] LABS: ALBUMIN 2.9 g/dL (3.5-5.0); ALBUMIN/GLOBULIN RATIO 1.1 (0.8-2.0); ANION GAP 19.5 mmol/L (8-16); CALCIUM 8.9 mg/dL (8.4-10.2); CREATININE, SERUM 0.66 mg/dL (0.57-1.11); POTASSIUM 3.5 mmol/L (3.5-5.1)
[2021-11-27] MEDS: METHYLPREDNISOLONE SOD SUCC 40 MG/ML VIAL 1ML IV SCH ×3 (06:18→22:35)
[2021-11-27] MEDS: BENZONATATE 100 MG CAP PO SCH ×3 (09:00→21:00)
[2021-11-27] MEDS: FLECAINIDE ACETATE 100 MG TAB PO SCH (09:00)
[2021-11-27] MEDS: GABAPENTIN 300 MG CAP PO SCH ×3 (09:00→21:00)
[2021-11-27] MEDS: LORATADINE 10 MG TAB PO SCH (09:00)
[2021-11-27] MEDS: MULTIVITAMINS/MINERALS TAB PO SCH (09:00)
[2021-11-27] MEDS: PANTOPRAZOLE SOD 40 MG TABEC PO SCH (09:00)
[2021-11-27] MEDS: CEFEPIME 1 GM in SODIUM CHLORIDE 0.9% 50ML 50 ML IV SCH ×2 (10:08→21:17)
[2021-11-27] MEDS: NICOTINE 7 MG PATCH TOP SCH (15:06)
[2021-11-27] MEDS ORDERED: KETOROLAC TROMETHAMINE 30 MG/ML VIAL IV ONE (15:30)
[2021-11-27] MEDS: ENOXAPARIN SOD INJ 40 MG/0.4 ML SYR SC SCH (18:11)
[2021-11-27] MEDS ORDERED: ACETAMINOPHEN 1000 MG/100 ML IV PRN (19:30)
[2021-11-27] MEDS: MONTELUKAST SODIUM 10 MG TAB PO SCH (21:00)
[2021-11-28] VITALS (10 sets, daily range): BP systolic 131–173; BP diastolic 61–94
[2021-11-28 05:09] LABS: BASOPHILS % 0.2 % (0.0-1.0); HEMATOCRIT 41.1 % (34.2-44.1); HEMOGLOBIN 13.7 g/dL (12.0-16.0); LYMPHOCYTES # (AUTO) 0.4 (1.0-3.2); LYMPHOCYTES % 4.4 % (18.0-39.1); MEAN CORPUSCULAR HEMOGLOBIN 31.1 pg (28-32); MEAN CORPUSCULAR HGB CONC 33.3 g/dL (31-35); MEAN CORPUSCULAR VOLUME 93.2 fL (81-99); MONOCYTES # (AUTO) 0.4 (0.2-0.8); NEUTROPHILS # (AUTO) 8.1 (2.1-6.9); NEUTROPHILS % 90.6 % (38.7-80.0); PLATELET COUNT 201 x10e3/uL (140-360); RED BLOOD COUNT 4.41 x10e6/uL (3.6-5.1); RED CELL DISTRIBUTION WIDTH 12.4 % (11.7-14.4)
[2021-11-28 05:22] LABS: ALBUMIN 3.1 g/dL (3.5-5.0); ALBUMIN/GLOBULIN RATIO 1.2 (0.8-2.0); ANION GAP 16.5 mmol/L (8-16); CREATININE, SERUM 0.59 mg/dL (0.57-1.11); POTASSIUM 3.5 mmol/L (3.5-5.1)
[2021-11-28] MEDS: METHYLPREDNISOLONE SOD SUCC 40 MG/ML VIAL 1ML IV SCH ×3 (06:35→22:00)
[2021-11-28] MEDS: ALBUTEROL/IPRATROPIUM 3 ML NEB NEB PRN ×2 (06:52→11:05)
[2021-11-28] MEDS: LORATADINE 10 MG TAB PO SCH (08:05)
[2021-11-28] MEDS: GABAPENTIN 300 MG CAP PO SCH ×3 (08:05→20:44)
[2021-11-28] MEDS: PANTOPRAZOLE SOD 40 MG TABEC PO SCH (08:05)
[2021-11-28] MEDS: BENZONATATE 100 MG CAP PO SCH ×3 (08:05→20:45)
[2021-11-28] MEDS: MULTIVITAMINS/MINERALS TAB PO SCH (08:05)
[2021-11-28] MEDS: CEFEPIME 1 GM in SODIUM CHLORIDE 0.9% 50ML 50 ML IV SCH ×2 (08:25→20:37)
[2021-11-28] MEDS: NICOTINE 7 MG PATCH TOP SCH (08:25)
[2021-11-28 12:13] LABS: CLARITY,URINE CLOUDY (CLEAR); COLOR,URINE YELLOW (YELLOW); KETONES,URINE 2+ (NEGATIVE); LEUKOCYTE ESTERASE ,URINE NEGATIVE (NEGATIVE); NITRITE,URINE NEGATIVE (NEGATIVE); PROTEIN,URINE DIPSTICK 1+ (NEGATIVE); URINE UROBILINOGEN 0.2 mg/dL (0.2 - 1)
[2021-11-28 12:22] LABS: BACTERIA,URINE RARE /HPF; EPITHELIAL CELLS,URINE RARE /LPF; RBC,URINE >50 /HPF (0-5); WBC,URINE (MAN) 0-5 /HPF (0-5)
[2021-11-28] MEDS: ENOXAPARIN SOD INJ 40 MG/0.4 ML SYR SC SCH (16:20)
[2021-11-28] MEDS: DEXMEDETOMIDINE 400MCG/NS100ML 100 ML IV PRN (18:38)
[2021-11-28] MEDS: MONTELUKAST SODIUM 10 MG TAB PO SCH (20:44)
[2021-11-29] VITALS (10 sets, daily range): BP systolic 131–169; BP diastolic 68–84
[2021-11-29] MEDS: METHYLPREDNISOLONE SOD SUCC 40 MG/ML VIAL 1ML IV SCH ×2 (05:46→14:55)
[2021-11-29] MEDS: ALBUTEROL/IPRATROPIUM 3 ML NEB NEB PRN (07:09)
[2021-11-29] MEDS ORDERED: LIDOCAINE HCL 1% LOCAL INJ 20 ML VIAL ONE (09:19)
[2021-11-29] MEDS: LORATADINE 10 MG TAB PO SCH (09:21)
[2021-11-29] MEDS: GABAPENTIN 300 MG CAP PO SCH ×2 (09:21→14:55)
[2021-11-29] MEDS: MULTIVITAMINS/MINERALS TAB PO SCH (09:21)
[2021-11-29] MEDS: PANTOPRAZOLE SOD 40 MG TABEC PO SCH (09:21)
[2021-11-29] MEDS: BENZONATATE 100 MG CAP PO SCH ×2 (09:21→14:55)
[2021-11-29] MEDS: CEFEPIME 1 GM in SODIUM CHLORIDE 0.9% 50ML 50 ML IV SCH (09:21)
[2021-11-29] MEDS: NICOTINE 7 MG PATCH TOP SCH (09:21)
[2021-11-29] MEDS ORDERED: ACETAMINOPHEN325 M1 PO (13:23)
[2021-11-29] MEDS ORDERED: NICODERM CQ1 EACH TOP (13:23)
[2021-11-29] MEDS ORDERED: LORATADINE10 MG PO (13:23)
[2021-11-29] MEDS ORDERED: Benzonatate PO (13:23)
[2021-11-29] MEDS: ENOXAPARIN SOD INJ 40 MG/0.4 ML SYR SC SCH (17:30)
[2021-11-29] MEDS ORDERED: CENTRAL TPN FORMULA 1 BAG IV SCH (20:00)
[2021-11-30] MEDS ORDERED: AZITHROMYCIN 250 MG TAB PO SCH (09:00)
== END 2021-11-29 20:02 | DRG 190 ==
LOC: ER 21:53 → ERHOLD 23:12 → MED/SURG2 11-24 03:03 → OBSVTOIN 11-24 08:54 → IMCU 11-24 18:55
PROVIDERS: ADMIT Internal Medicine; ATTEND Internal Medicine
PROC: 5A09357 Assistance with Respiratory Ventilation, Less than 24 Consecutive Hours, Continuous Positive Airway Pressure (ICD-10-PCS; principal; 2021-11-24)
PROC: 02HV33Z Insertion of Infusion Device into Superior Vena Cava, Percutaneous Approach (ICD-10-PCS; 2021-11-29)
DX: J44.1 Chronic obstructive pulmonary disease with (acute) exacerbation (principal); G93.41 Metabolic encephalopathy; J96.21 Acute and chronic respiratory failure with hypoxia; I48.20 Chronic atrial fibrillation, unspecified; N17.9 Acute kidney failure, unspecified; E27.40 Unspecified adrenocortical insufficiency; K76.6 Portal hypertension; E44.1 Mild protein-calorie malnutrition; Z68.1 Body mass index [BMI] 19.9 or less, adult; Z79.01 Long term (current) use of anticoagulants; K21.9 Gastro-esophageal reflux disease without esophagitis; F03.90 Unspecified dementia, unspecified severity, without behavioral disturbance, psychotic disturbance, mood disturbance, and anxiety; F17.210 Nicotine dependence, cigarettes, uncomplicated; K27.9 Peptic ulcer, site unspecified, unspecified as acute or chronic, without hemorrhage or perforation; M81.0 Age-related osteoporosis without current pathological fracture
CPT/HCPCS: 36415; 36556; 36569; 36600; 70450; 71045; 74470; 76604; 76937; 77001; 80048; 80053; 80307; 81001; 82805; 82948; 83605; 84484; 85025; 87040; 93005; 93306; 94660; 94799; 99251; 99285; G0378; J0456; J0692; J1100; J1650; J1885; J1940; J2001; J2060; J2310; J2920; J7030; J7050; J7121; U0002

== ENCOUNTER → 2022-01-31 | Day surgery (SDC) | payer MEDICARE, OTHER ==
[2022-01-27 12:45] LABS: BASOPHILS % 0.4 % (0.0-1.0); EOSINOPHILS # (AUTO) 0.1 (0.0-0.4); EOSINOPHILS % 1.8 % (0.0-6.0); HEMATOCRIT 39.5 % (34.2-44.1); HEMOGLOBIN 12.5 g/dL (12.0-16.0); LYMPHOCYTES # (AUTO) 1.6 (1.0-3.2); LYMPHOCYTES % 22.8 % (18.0-39.1); MEAN CORPUSCULAR HEMOGLOBIN 31.6 pg (28-32); MEAN CORPUSCULAR HGB CONC 31.6 g/dL (31-35); MONOCYTES # (AUTO) 0.4 (0.2-0.8); NEUTROPHILS # (AUTO) 4.6 (2.1-6.9); NEUTROPHILS % 67.5 % (38.7-80.0); PLATELET COUNT 376 x10e3/uL (140-360); RED BLOOD COUNT 3.95 x10e6/uL (3.6-5.1); RED CELL DISTRIBUTION WIDTH 15.2 % (11.7-14.4)
[~2022-01-31] MED LIST changes: +ACETAMINOPHEN325 M1 PO; +Benzonatate PO; +CLINDAMYCIN HC300 MG PO; +FENTANYL CITRATE/PF 100MCG/2 ML INJ ONE; +FLECAINIDE ACET50 MG PO; +FLOMAX0.4 MG PO; +HYDROCORTISONE5 MG PO; +LORATADINE10 MG PO; +METOPROLOL SUCC25 MG PO; +MIDAZOLAM HCL 2 MG/2 ML VIAL ONE; +NICODERM CQ1 EACH TOP; +OR PHACO EYE KIT ONE; +PREOP PHACO EYE KIT ONE; +ULTRACET TABLE1 EACH PO; +ZINC50 M2 PO; +[UNRECOGNIZED DRUG - OTHER] OP
[2022-01-31 15:50] VITALS: BP 138/67
== END | disposition home or self-care (01) ==
LOC: OR 12:13
PROVIDERS: ATTEND Ophthalmology
DX: H25.11 Age-related nuclear cataract, right eye (principal); E27.40 Unspecified adrenocortical insufficiency; I73.9 Peripheral vascular disease, unspecified; E03.9 Hypothyroidism, unspecified; K22.70 Barrett's esophagus without dysplasia; Z01.812 Encounter for preprocedural laboratory examination; Z11.52 Encounter for screening for COVID-19; Z79.52 Long term (current) use of systemic steroids; E78.2 Mixed hyperlipidemia; G30.0 Alzheimer's disease with early onset; F02.80 Dementia in other diseases classified elsewhere, unspecified severity, without behavioral disturbance, psychotic disturbance, mood disturbance, and anxiety; F17.200 Nicotine dependence, unspecified, uncomplicated; J44.9 Chronic obstructive pulmonary disease, unspecified
CPT/HCPCS: 36415; 85025; J2250; J3010; U0002; V2788

== ENCOUNTER → 2022-03-24 | Day surgery (SDC) | payer MEDICARE, OTHER ==
[2022-03-22 14:33] LABS: BASOPHILS # (AUTO) 0.1 (0.0-0.1); BASOPHILS % 0.6 % (0.0-1.0); EOSINOPHILS # (AUTO) 0.2 (0.0-0.4); EOSINOPHILS % 1.9 % (0.0-6.0); HEMATOCRIT 42.6 % (34.2-44.1); HEMOGLOBIN 13.5 g/dL (12.0-16.0); LYMPHOCYTES # (AUTO) 1.5 (1.0-3.2); LYMPHOCYTES % 16.1 % (18.0-39.1); MEAN CORPUSCULAR HEMOGLOBIN 31.8 pg (28-32); MEAN CORPUSCULAR HGB CONC 31.7 g/dL (31-35); MEAN CORPUSCULAR VOLUME 100.5 fL (81-99); MONOCYTES # (AUTO) 0.7 (0.2-0.8); MONOCYTES % 7.6 % (4.4-11.3); NEUTROPHILS # (AUTO) 6.6 (2.1-6.9); NEUTROPHILS % 72.6 % (38.7-80.0); PLATELET COUNT 280 x10e3/uL (140-360); RED BLOOD COUNT 4.24 x10e6/uL (3.6-5.1); RED CELL DISTRIBUTION WIDTH 13.6 % (11.7-14.4)
[2022-03-22 14:51] LABS: ANION GAP 15.6 mmol/L (8-16); CALCIUM 9.2 mg/dL (8.4-10.2); CREATININE, SERUM 0.83 mg/dL (0.57-1.11); POTASSIUM 4.6 mmol/L (3.5-5.1)
[~2022-03-24] MED LIST changes: +BELLADONNA/OPIUM 30 MG SUPP RC ONE; +CEFTRIAXONE 1 GM VIAL ONE; +DEXAMETHASONE SOD PHOS INJ 4 MG/ML SDV ONE; +EPHEDRINE SULFATE INJ 50 MG/ML VIAL ONE; +IOPAMIDOL 610MG/1ML 300 MG/ML VIAL IV ONE; +LIDOCAINE HCL 2% LOCAL INJ 5 ML SDV VIAL INJ ONE; -MIDAZOLAM HCL 2 MG/2 ML VIAL ONE; +ONDANSETRON HCL INJ 2MG/ML 2ML 2 MG/ML VIAL ONE; -OR PHACO EYE KIT ONE; +POVIDONE IODINE 0.05% 0.05 % ML PO ONE; -PREOP PHACO EYE KIT ONE; +PROLIA60 MG/1 ML; +PROPOFOL IV EMULSION 10 MG/ML 20 ML VIAL ONE; +SEVOFLURANE INHAL SOLN 250 ML PEN BTL ONE; +TRELEGY ELLIPT1 EACH; +TRILOGY
[2022-03-24 12:30] VITALS: BP 134/67
== END | disposition home or self-care (01) ==
LOC: OR 08:03
PROVIDERS: ATTEND Urology
DX: N20.0 Calculus of kidney (principal); N30.10 Interstitial cystitis (chronic) without hematuria; N81.10 Cystocele, unspecified; N81.6 Rectocele; N36.41 Hypermobility of urethra; N95.2 Postmenopausal atrophic vaginitis; N36.2 Urethral caruncle; J44.9 Chronic obstructive pulmonary disease, unspecified; I10 Essential (primary) hypertension; K57.90 Diverticulosis of intestine, part unspecified, without perforation or abscess without bleeding; K22.70 Barrett's esophagus without dysplasia; M54.9 Dorsalgia, unspecified; G43.909 Migraine, unspecified, not intractable, without status migrainosus; I70.0 Atherosclerosis of aorta; E27.40 Unspecified adrenocortical insufficiency; E03.9 Hypothyroidism, unspecified; R16.0 Hepatomegaly, not elsewhere classified; K44.9 Diaphragmatic hernia without obstruction or gangrene; Z01.812 Encounter for preprocedural laboratory examination; Z01.818 Encounter for other preprocedural examination; Z20.822 Contact with and (suspected) exposure to COVID-19; Z79.899 Other long term (current) drug therapy; Z90.710 Acquired absence of both cervix and uterus; Z87.11 Personal history of peptic ulcer disease; Z87.891 Personal history of nicotine dependence
CPT/HCPCS: 0223U; 36415; 50590; 52260; 52332; 74018; 80048; 83970; 84550; 85025; 87086; 93005; C1758; C2617; J0696; J1100; J2001; J2405; J2704; J3010; Q9967

== ENCOUNTER → 2022-05-15 | Outpatient (CLI) | payer MEDICARE, OTHER ==
[~2022-05-15] MED LIST changes: -BELLADONNA/OPIUM 30 MG SUPP RC ONE; -CEFTRIAXONE 1 GM VIAL ONE; -DEXAMETHASONE SOD PHOS INJ 4 MG/ML SDV ONE; -EPHEDRINE SULFATE INJ 50 MG/ML VIAL ONE; -FENTANYL CITRATE/PF 100MCG/2 ML INJ ONE; -IOPAMIDOL 610MG/1ML 300 MG/ML VIAL IV ONE; -LIDOCAINE HCL 2% LOCAL INJ 5 ML SDV VIAL INJ ONE; -ONDANSETRON HCL INJ 2MG/ML 2ML 2 MG/ML VIAL ONE; -POVIDONE IODINE 0.05% 0.05 % ML PO ONE; -PROPOFOL IV EMULSION 10 MG/ML 20 ML VIAL ONE; -SEVOFLURANE INHAL SOLN 250 ML PEN BTL ONE
== END ==
LOC: CT 13:23
PROVIDERS: ATTEND Urology
DX: N20.0 Calculus of kidney (principal); N23 Unspecified renal colic
CPT/HCPCS: 74176

== ENCOUNTER → 2022-06-14 | Day surgery (SDC) | payer MEDICARE, OTHER ==
[2022-06-12 13:51] LABS: BASOPHILS % 0.4 % (0.0-1.0); EOSINOPHILS # (AUTO) 0.2 (0.0-0.4); EOSINOPHILS % 2.6 % (0.0-6.0); HEMATOCRIT 38.7 % (34.2-44.1); LYMPHOCYTES # (AUTO) 1.6 (1.0-3.2); LYMPHOCYTES % 16.7 % (18.0-39.1); MEAN CORPUSCULAR HEMOGLOBIN 31.3 pg (28-32); MEAN CORPUSCULAR VOLUME 100.8 fL (81-99); MONOCYTES # (AUTO) 0.8 (0.2-0.8); NEUTROPHILS # (AUTO) 6.7 (2.1-6.9); NEUTROPHILS % 71.4 % (38.7-80.0); PLATELET COUNT 280 x10e3/uL (140-360); RED BLOOD COUNT 3.84 x10e6/uL (3.6-5.1); RED CELL DISTRIBUTION WIDTH 13.7 % (11.7-14.4)
[2022-06-12 14:13] LABS: ANION GAP 13.8 mmol/L (8-16); CALCIUM 8.6 mg/dL (8.4-10.2); CREATININE, SERUM 0.91 mg/dL (0.57-1.11); POTASSIUM 4.8 mmol/L (3.5-5.1)
[~2022-06-14] MED LIST changes: +B&O 60MG R/S 60 MG SUPP PR ONE; +CEFTRIAXONE 1 GM VIAL ONE; +DEXAMETHASONE SOD PHOS INJ 4 MG/ML SDV ONE; +FENTANYL CITRATE/PF 100MCG/2 ML INJ ONE; +FLUDROCORTISON0.1 MG PO; +GENTAMICIN 80MG/NS 100 ML 200 ML IV ONE; +IOPAMIDOL 300MG/ML 50ML INFUS..BTL IV ONE; +LIDOCAINE HCL 2% LOCAL INJ 5 ML SDV VIAL INJ ONE; +NITROFURANTOIN100 MG PO; +ONDANSETRON HCL INJ 2MG/ML 2ML 2 MG/ML VIAL ONE; +POVIDONE IODINE 0.05% 0.05 % ML PO ONE; +PROPOFOL IV EMULSION 10 MG/ML 20 ML VIAL ONE; +SEVOFLURANE INHAL SOLN 250 ML PEN BTL ONE; +TRAMADOL HCL 50 MG TAB ONE
[2022-06-14 12:30] VITALS: BP 133/61
== END | disposition home or self-care (01) ==
LOC: OR 08:01
PROVIDERS: ATTEND Urology
DX: N20.0 Calculus of kidney (principal); Z46.6 Encounter for fitting and adjustment of urinary device; N13.30 Unspecified hydronephrosis; N39.0 Urinary tract infection, site not specified; R80.9 Proteinuria, unspecified; N31.9 Neuromuscular dysfunction of bladder, unspecified; N81.89 Other female genital prolapse; N81.10 Cystocele, unspecified; N81.6 Rectocele; N36.41 Hypermobility of urethra; N95.2 Postmenopausal atrophic vaginitis; N36.2 Urethral caruncle; R00.1 Bradycardia, unspecified; G89.29 Other chronic pain; J44.9 Chronic obstructive pulmonary disease, unspecified; I10 Essential (primary) hypertension; E27.40 Unspecified adrenocortical insufficiency; K44.9 Diaphragmatic hernia without obstruction or gangrene; K57.90 Diverticulosis of intestine, part unspecified, without perforation or abscess without bleeding; F17.200 Nicotine dependence, unspecified, uncomplicated; Z88.6 Allergy status to analgesic agent; Z01.812 Encounter for preprocedural laboratory examination; Z01.818 Encounter for other preprocedural examination; Z79.899 Other long term (current) drug therapy
CPT/HCPCS: 36415; 52356; 71046; 74018; 74420; 80048; 84550; 85025; 87086; 88300; C1766; C1769; C1874; J0696; J1100; J1580; J2001; J2405; J2704; J3010; Q9967

== ENCOUNTER → 2022-08-18 | Outpatient (CLI) | payer MEDICARE, OTHER ==
[~2022-08-18] MED LIST changes: -B&O 60MG R/S 60 MG SUPP PR ONE; -CEFTRIAXONE 1 GM VIAL ONE; -DEXAMETHASONE SOD PHOS INJ 4 MG/ML SDV ONE; -FENTANYL CITRATE/PF 100MCG/2 ML INJ ONE; -GENTAMICIN 80MG/NS 100 ML 200 ML IV ONE; -IOPAMIDOL 300MG/ML 50ML INFUS..BTL IV ONE; -LIDOCAINE HCL 2% LOCAL INJ 5 ML SDV VIAL INJ ONE; -ONDANSETRON HCL INJ 2MG/ML 2ML 2 MG/ML VIAL ONE; -POVIDONE IODINE 0.05% 0.05 % ML PO ONE; -PROPOFOL IV EMULSION 10 MG/ML 20 ML VIAL ONE; -SEVOFLURANE INHAL SOLN 250 ML PEN BTL ONE; -TRAMADOL HCL 50 MG TAB ONE
== END ==
LOC: RAD 13:16
PROVIDERS: ATTEND Family Medicine
DX: S90.121A Contusion of right lesser toe(s) without damage to nail, initial encounter (principal)

== ENCOUNTER → 2022-08-19 | Day surgery (SDC) | payer MEDICARE, OTHER ==
[2022-08-16 11:52] LABS: BASOPHILS % 0.3 % (0.0-1.0); EOSINOPHILS # (AUTO) 0.1 (0.0-0.4); EOSINOPHILS % 1.5 % (0.0-6.0); HEMATOCRIT 44.6 % (34.2-44.1); HEMOGLOBIN 13.4 g/dL (12.0-16.0); LYMPHOCYTES # (AUTO) 1.2 (1.0-3.2); LYMPHOCYTES % 13.3 % (18.0-39.1); MEAN CORPUSCULAR HEMOGLOBIN 30.2 pg (28-32); MEAN CORPUSCULAR VOLUME 100.7 fL (81-99); MONOCYTES # (AUTO) 0.7 (0.2-0.8); MONOCYTES % 7.6 % (4.4-11.3); NEUTROPHILS # (AUTO) 7.1 (2.1-6.9); PLATELET COUNT 341 x10e3/uL (140-360); RED BLOOD COUNT 4.43 x10e6/uL (3.6-5.1); RED CELL DISTRIBUTION WIDTH 13.5 % (11.7-14.4)
[~2022-08-19] MED LIST changes: +IOPAMIDOL 300MG/ML 50ML INFUS..BTL IV ONE; +LIDOCAINE HCL 2% LOCAL INJ 5 ML SDV VIAL INJ ONE; +ONDANSETRON HCL INJ 2MG/ML 2ML 2 MG/ML VIAL ONE; +POVIDONE IODINE 0.05% 0.05 % ML PO ONE; +PROPOFOL IV EMULSION 10 MG/ML 20 ML VIAL ONE; +SEVOFLURANE INHAL SOLN 250 ML PEN BTL ONE
[2022-08-19 08:19] LABS: ANION GAP 13.8 mmol/L (8-16); CALCIUM 7.7 mg/dL (8.4-10.2); CREATININE, SERUM 0.67 mg/dL (0.57-1.11); POTASSIUM 3.8 mmol/L (3.5-5.1)
[2022-08-19] MEDS: ACETAMINOPHEN 1000 MG/100 ML 100 ML IV ONE (12:13)
[2022-08-19] MEDS: FENTANYL CITRATE/PF 100MCG/2 ML INJ ONE (12:13)
[2022-08-19 12:33] VITALS: BP 143/67
[2022-08-19] MEDS: CEFTRIAXONE 1 GM VIAL ONE (13:00)
[2022-08-19] MEDS: GENTAMICIN 80MG/NS 100 ML 200 ML IV ONE (13:01)
== END | disposition home or self-care (01) ==
LOC: OR 06:43
PROVIDERS: ATTEND Urology
DX: N20.0 Calculus of kidney (principal); Z46.6 Encounter for fitting and adjustment of urinary device; N28.89 Other specified disorders of kidney and ureter; N81.10 Cystocele, unspecified; N81.6 Rectocele; N95.2 Postmenopausal atrophic vaginitis; N36.41 Hypermobility of urethra; N36.2 Urethral caruncle; J44.9 Chronic obstructive pulmonary disease, unspecified; Z01.810 Encounter for preprocedural cardiovascular examination; Z01.812 Encounter for preprocedural laboratory examination; Z01.818 Encounter for other preprocedural examination; Z99.81 Dependence on supplemental oxygen; Z79.899 Other long term (current) drug therapy; Z86.16 Personal history of COVID-19
CPT/HCPCS: 36415 ×2; 52352; 71046; 74018; 74420; 80048; 84550; 85025; 87086; 87186; 88300; 93005; C1766; C1769; J0131; J0696; J1580; J2001; J2405; J2704; J3010; Q9967

== ENCOUNTER → 2022-11-09 | Outpatient (CLI) | payer MEDICARE, OTHER ==
[~2022-11-09] MED LIST changes: -IOPAMIDOL 300MG/ML 50ML INFUS..BTL IV ONE; -LIDOCAINE HCL 2% LOCAL INJ 5 ML SDV VIAL INJ ONE; -ONDANSETRON HCL INJ 2MG/ML 2ML 2 MG/ML VIAL ONE; -POVIDONE IODINE 0.05% 0.05 % ML PO ONE; -PROPOFOL IV EMULSION 10 MG/ML 20 ML VIAL ONE; -SEVOFLURANE INHAL SOLN 250 ML PEN BTL ONE
== END ==
LOC: RAD 15:59
PROVIDERS: ATTEND Family Medicine
DX: J40 Bronchitis, not specified as acute or chronic (principal)
CPT/HCPCS: 71046

== ENCOUNTER → 2023-02-12 | Outpatient (CLI) | payer MEDICARE, OTHER ==
[2023-02-09 10:48] LABS: BASOPHILS % 0.5 % (0.0-1.0); EOSINOPHILS # (AUTO) 0.1 (0.0-0.4); EOSINOPHILS % 0.7 % (0.0-6.0); HEMATOCRIT 42.5 % (34.2-44.1); HEMOGLOBIN 13.4 g/dL (12.0-16.0); LYMPHOCYTES # (AUTO) 0.7 (1.0-3.2); LYMPHOCYTES % 7.8 % (18.0-39.1); MEAN CORPUSCULAR HEMOGLOBIN 30.5 pg (28-32); MEAN CORPUSCULAR HGB CONC 31.5 g/dL (31-35); MEAN CORPUSCULAR VOLUME 96.6 fL (81-99); MONOCYTES # (AUTO) 0.3 (0.2-0.8); NEUTROPHILS # (AUTO) 7.1 (2.1-6.9); NEUTROPHILS % 81.7 % (38.7-80.0); PLATELET COUNT 378 x10e3/uL (140-360); RED CELL DISTRIBUTION WIDTH 14.6 % (11.7-14.4)
[2023-02-09 11:07] LABS: ANION GAP 15.4 mmol/L (8-16); CALCIUM 9.2 mg/dL (8.4-10.2); CREATININE, SERUM 0.85 mg/dL (0.57-1.11); POTASSIUM 5.4 mmol/L (3.5-5.1)
[2023-02-09 13:31] LABS: BAND NEUTROPHILS % (MANUAL) 1 %; EOSINOPHILS % (MANUAL) 2 % (0-7); LYMPHOCYTES % (MANUAL) 3 % (19-48); METAMYELOCYTES % (MANUAL) 1 % (0-0); MONOCYTES % (MANUAL) 2 % (3.4-9.0); MYELOCYTES % (MANUAL) 3 % (0-0); NEUTROPHILS % (MANUAL) 86 % (40-74); PLATELET ESTIMATE ADEQUATE; PLATELET MORPHOLOGY COMMENT NORMAL; PROMYELOCYTES % (MANUAL) 1 % (0-0); RBC MORPHOLOGY COMMENT NORMAL
[~2023-02-12] MED LIST changes: +ALBUTEROL SULF 0.083% NEB SOLN 3 ML NEB ONE; +BACITRACIN ZINC 15 GM OINT ONE; +BOTOX100 UNIT SC; +BUPIVACAINE HCL 0.5% INJ 30 ML VIAL INJ ONE; +CARAFATE1 GM PO; +CLEBREX; +COLESTIPOL HCL1 GM PO; +CYCLOBENZAPRINE10 MG PO; +GENTAMICIN 80MG/NS 100 ML 200 ML IV ONE; +GENTAMICIN SULFATE 40 MG/ML 2 ML VIAL ONE; +IOPAMIDOL 370 MG/ML 100 ML INFUS..BTL INJ ONE; +K-DUR10 MEQ PO; +LACTATED RINGER'S 1,000 ML ONE; +LEVOFLOXACIN250 MG PO; +LIDOCAINE 2% /EPINEPHRINE 20 ML SDV INJ ONE; +METHYLENE BLUE 1% INJ 10 ML VIAL INJ ONE; +NYSTATIN100000 UNI PO; +PIPERACILLIN/TAZOBACTAM 3.375 GM VIAL ONE; +POTASSIUM CITR10 MEQ PO; +PREDNISOLO15 MG/5 ML PO; +SOLU-CORTEF100 MG IV; +STIOLTO RESPIMAT4 GM PO; +ULTRAM 50MG50 MG PO; +VITAMIN B-1100 M1 PO
== END | disposition home or self-care (01) ==
LOC: OR 10:46 → RAD 10:46 → EDSTATUS 12:30
PROVIDERS: ATTEND Urology
DX: N81.10 Cystocele, unspecified (principal); Z01.810 Encounter for preprocedural cardiovascular examination; Z01.812 Encounter for preprocedural laboratory examination; Z01.818 Encounter for other preprocedural examination; Z53.8 Procedure and treatment not carried out for other reasons
CPT/HCPCS: 36415 ×2; 71046 ×2; 80048; 84132; 85025; 93005 ×2; A4467; J1580; J2543; J7121; J2001; Q9967

== ENCOUNTER 2023-03-19 10:46 | Inpatient (IN) | payer MEDICARE, OTHER ==
[2023-03-16 11:46] LABS: BASOPHILS % 0.4 % (0.0-1.0); EOSINOPHILS # (AUTO) 0.1 (0.0-0.4); EOSINOPHILS % 1.2 % (0.0-6.0); HEMATOCRIT 43.3 % (34.2-44.1); HEMOGLOBIN 13.7 g/dL (12.0-16.0); LYMPHOCYTES # (AUTO) 1.6 (1.0-3.2); LYMPHOCYTES % 14.5 % (18.0-39.1); MEAN CORPUSCULAR HEMOGLOBIN 30.6 pg (28-32); MEAN CORPUSCULAR HGB CONC 31.6 g/dL (31-35); MEAN CORPUSCULAR VOLUME 96.9 fL (81-99); MONOCYTES # (AUTO) 0.7 (0.2-0.8); MONOCYTES % 6.1 % (4.4-11.3); NEUTROPHILS # (AUTO) 8.5 (2.1-6.9); NEUTROPHILS % 76.5 % (38.7-80.0); PLATELET COUNT 268 x10e3/uL (140-360); RED BLOOD COUNT 4.47 x10e6/uL (3.6-5.1); RED CELL DISTRIBUTION WIDTH 15.8 % (11.7-14.4)
[2023-03-16 12:02] LABS: ANION GAP 15.5 mmol/L (8-16); CALCIUM 8.8 mg/dL (8.4-10.2); CREATININE, SERUM 0.79 mg/dL (0.57-1.11); POTASSIUM 4.5 mmol/L (3.5-5.1)
[~2023-03-19] VITALS: Ht 154.9 cm; Wt 47.2 kg
[2023-03-19] VITALS (7 sets, daily range): BP systolic 102–119; BP diastolic 66–86; PULSE 51–77; RESP 16; TEMP 97.4–97.6; O2SAT 94–99
[~2023-03-19 10:46] MED LIST changes: -ALBUTEROL SULF 0.083% NEB SOLN 3 ML NEB ONE; -BACITRACIN ZINC 15 GM OINT ONE; -BOTOX100 UNIT SC; -BUPIVACAINE HCL 0.5% INJ 30 ML VIAL INJ ONE; -GENTAMICIN 80MG/NS 100 ML 200 ML IV ONE; -GENTAMICIN SULFATE 40 MG/ML 2 ML VIAL ONE; -IOPAMIDOL 370 MG/ML 100 ML INFUS..BTL INJ ONE; -LACTATED RINGER'S 1,000 ML ONE; -LIDOCAINE 2% /EPINEPHRINE 20 ML SDV INJ ONE; -METHYLENE BLUE 1% INJ 10 ML VIAL INJ ONE; -NYSTATIN100000 UNI PO; -PIPERACILLIN/TAZOBACTAM 3.375 GM VIAL ONE; -ULTRAM 50MG50 MG PO; -VITAMIN B-1100 M1 PO
[2023-03-19] MEDS ORDERED: GENTAMICIN 80MG/NS 100 ML 200 ML IV ONE (10:58)
[2023-03-19] MEDS ORDERED: Clindamycin INJ 300 MG/50 ML 50 ML IV ONE (10:59)
[2023-03-19] MEDS ORDERED: LACTATED RINGER'S 1,000 ML ONE (10:59)
[2023-03-19] MEDS ORDERED: PIPERACILLIN/TAZOBACTAM 3.375 GM VIAL ONE (10:59)
[2023-03-19] MEDS ORDERED: BOTOX100 UNIT SC (11:24)
[2023-03-19] MEDS ORDERED: VITAMIN B-1100 M1 PO (11:25)
[2023-03-19] MEDS ORDERED: ULTRAM 50MG50 MG PO (11:25)
[2023-03-19] MEDS ORDERED: NYSTATIN100000 UNI PO (11:25)
[2023-03-19] MEDS ORDERED: HYDROCORTISONE SOD SUCCINATE 100 MG VIAL ONE (11:46)
[2023-03-19] MEDS ORDERED: BUPIVACAINE HCL 0.5% INJ 30 ML VIAL INJ ONE (12:41)
[2023-03-19] MEDS ORDERED: IOPAMIDOL 610MG/1ML 300 MG/ML VIAL IV ONE (12:41)
[2023-03-19] MEDS ORDERED: MUPIROCIN 2% OINT 22 GM TUBE ONE (12:41)
[2023-03-19] MEDS ORDERED: LIDOCAINE 2%/ EPINEPHRINE 20ML MDV ONE (12:41)
[2023-03-19] MEDS ORDERED: METHYLENE BLUE 1% INJ 10 ML VIAL INJ ONE (12:42)
[2023-03-19] MEDS ORDERED: GENTAMICIN SULFATE 40 MG/ML 2 ML VIAL ONE (12:42)
[2023-03-19] MEDS ORDERED: BACITRACIN ZINC 15 GM OINT ONE (12:43)
[2023-03-19] MEDS ORDERED: FENTANYL CITRATE/PF 100MCG/2 ML INJ ONE (12:46)
[2023-03-19] MEDS ORDERED: EPHEDRINE SULFATE INJ 50 MG/ML VIAL ONE (13:25)
[2023-03-19] MEDS ORDERED: PROPOFOL IV EMULSION 10 MG/ML 20 ML VIAL ONE (13:25)
[2023-03-19] MEDS ORDERED: SEVOFLURANE INHAL SOLN 250 ML PEN BTL ONE (13:25)
[2023-03-19] MEDS ORDERED: PHENYLEPHRINE HCL 1% 10 MG/ML VIAL ONE (13:25)
[2023-03-19] MEDS ORDERED: LIDOCAINE HCL 2% LOCAL INJ 5 ML SDV VIAL INJ ONE (13:25)
[2023-03-19] MEDS ORDERED: ONDANSETRON HCL INJ 2MG/ML 2ML 2 MG/ML VIAL ONE (13:25)
[2023-03-19] MEDS ORDERED: DEXAMETHASONE SOD PHOS INJ 4 MG/ML SDV ONE (13:25)
[2023-03-19] MEDS ORDERED: POVIDONE IODINE 0.05% 0.05 % ML PO ONE (13:25)
[2023-03-19] MEDS ORDERED: ACETAMINOPHEN 1000 MG/100 ML 100 ML IV ONE (14:00)
[2023-03-19] MEDS ORDERED: ONDANSETRON HCL INJ 2MG/ML 2ML 2 MG/ML VIAL IV PRN ×2 (14:45→23:30)
[2023-03-19] MEDS ORDERED: DIPHENHYDRAMINE HCL 25 MG CAP PO PRN ×2 (14:45→23:30)
[2023-03-19] MEDS ORDERED: PHENAZOPYRIDINE HCL 100 MG TAB PO PRN (14:45)
[2023-03-19] MEDS: SODIUM CHLORIDE 0.9% 1000ML 1,000 ML IV SCH (17:20)
[2023-03-19] MEDS: DOCUSATE SODIUM 100 MG CAP PO SCH (17:20)
[2023-03-19] MEDS ORDERED: ACETAMINOPHEN 1000 MG/100 ML IV PRN (18:00)
[2023-03-19] MEDS: TRAMADOL HCL 50 MG TAB PO PRN ×2 (19:28→23:39)
[2023-03-19] MEDS ORDERED: POTASSIUM CHLORIDE 20 MEQ TAB CR PO PRN (23:30)
[2023-03-19] MEDS ORDERED: HYDRALAZINE HCL 20 MG/ML VIAL IV PRN (23:30)
[2023-03-19] MEDS ORDERED: BENZONATATE 100 MG CAP PO PRN (23:30)
[2023-03-19] MEDS ORDERED: DOCUSATE SODIUM 100 MG CAP PO PRN (23:30)
[2023-03-19] MEDS ORDERED: MELATONIN 5 MG TABLET PO PRN (23:30)
[2023-03-19] MEDS ORDERED: SIMETHICONE 80 MG CHEW PO PRN (23:30)
[2023-03-19] MEDS ORDERED: DEXTROSE 50% SYRINGE 50 ML IV PRN (23:30)
[2023-03-19] MEDS ORDERED: LIDOCAINE 4% PATCH TP PRN (23:30)
[2023-03-19] MEDS ORDERED: ACETAMINOPHEN 325 MG TAB PO PRN (23:30)
[2023-03-20] VITALS (8 sets, daily range): BP systolic 119–139; BP diastolic 64–82; PULSE 79–90; RESP 16–20; TEMP 97.3–98.1; O2SAT 93–97
[2023-03-20 04:57] LABS: BASOPHILS % 0.1 % (0.0-1.0); HEMOGLOBIN 11.8 g/dL (12.0-16.0); LYMPHOCYTES # (AUTO) 0.8 (1.0-3.2); LYMPHOCYTES % 7.2 % (18.0-39.1); MEAN CORPUSCULAR HEMOGLOBIN 30.6 pg (28-32); MEAN CORPUSCULAR HGB CONC 32.8 g/dL (31-35); MEAN CORPUSCULAR VOLUME 93.5 fL (81-99); MONOCYTES # (AUTO) 0.7 (0.2-0.8); MONOCYTES % 5.8 % (4.4-11.3); NEUTROPHILS # (AUTO) 9.6 (2.1-6.9); NEUTROPHILS % 86.1 % (38.7-80.0); PLATELET COUNT 257 x10e3/uL (140-360); RED BLOOD COUNT 3.85 x10e6/uL (3.6-5.1); RED CELL DISTRIBUTION WIDTH 14.8 % (11.7-14.4)
[2023-03-20 05:29] LABS: ANION GAP 11.9 mmol/L (8-16); CALCIUM 7.5 mg/dL (8.4-10.2); CREATININE, SERUM 0.68 mg/dL (0.57-1.11); POTASSIUM 3.9 mmol/L (3.5-5.1)
[2023-03-20] MEDS: SODIUM CHLORIDE 0.9% 1000ML 1,000 ML IV SCH (05:59)
[2023-03-20] MEDS: PANTOPRAZOLE SOD 40 MG TABEC PO SCH (08:20)
[2023-03-20] MEDS ORDERED: CYCLOBENZAPRINE HCL 10 MG TAB PO PRN (08:45)
[2023-03-20] MEDS: MIDODRINE HCL 5 MG TABLET PO SCH ×3 (09:00→22:00)
[2023-03-20] MEDS: GABAPENTIN 400 MG CAP PO SCH ×3 (09:09→22:01)
[2023-03-20] MEDS: DOCUSATE SODIUM 100 MG CAP PO SCH ×2 (09:09→16:21)
[2023-03-20] MEDS: MULTIVITAMINS/MINERALS TAB PO SCH (09:09)
[2023-03-20] MEDS: TAMSULOSIN HCL 0.4 MG CAP PO SCH (09:09)
[2023-03-20] MEDS: FLUDROCORTISONE ACETATE 0.1 MG TAB PO SCH (09:09)
[2023-03-20] MEDS: CELECOXIB 100 MG CAP PO SCH ×2 (09:10→16:22)
[2023-03-20] MEDS: COLESTIPOL HCL 1 G TAB PO SCH (09:10)
[2023-03-20] MEDS: DIGOXIN 0.125 MG TAB PO SCH (09:10)
[2023-03-20] MEDS: TRAMADOL HCL 50 MG TAB PO PRN ×2 (10:38→16:22)
[2023-03-20] MEDS: SUCRALFATE 1 GM TAB PO SCH ×2 (13:27→16:23)
[2023-03-21 01:21] VITALS: BP 132/65; PULSE 81; RESP 16; TEMP 97.2; O2SAT 93
[2023-03-21 05:36] LABS: BASOPHILS # (AUTO) 0.1 (0.0-0.1); BASOPHILS % 0.7 % (0.0-1.0); EOSINOPHILS # (AUTO) 0.1 (0.0-0.4); EOSINOPHILS % 1.1 % (0.0-6.0); HEMOGLOBIN 11.7 g/dL (12.0-16.0); LYMPHOCYTES # (AUTO) 1.6 (1.0-3.2); LYMPHOCYTES % 21.6 % (18.0-39.1); MEAN CORPUSCULAR HEMOGLOBIN 30.3 pg (28-32); MEAN CORPUSCULAR HGB CONC 30.8 g/dL (31-35); MEAN CORPUSCULAR VOLUME 98.4 fL (81-99); MONOCYTES # (AUTO) 0.7 (0.2-0.8); MONOCYTES % 9.8 % (4.4-11.3); NEUTROPHILS # (AUTO) 4.9 (2.1-6.9); NEUTROPHILS % 65.3 % (38.7-80.0); PLATELET COUNT 261 x10e3/uL (140-360); RED BLOOD COUNT 3.86 x10e6/uL (3.6-5.1); RED CELL DISTRIBUTION WIDTH 15.6 % (11.7-14.4)
[2023-03-21 05:47] VITALS: BP 141/74; PULSE 87; RESP 16; TEMP 97.1; O2SAT 90
[2023-03-21 06:04] LABS: ANION GAP 10.5 mmol/L (8-16); CALCIUM 7.6 mg/dL (8.4-10.2); CREATININE, SERUM 0.74 mg/dL (0.57-1.11); POTASSIUM 3.5 mmol/L (3.5-5.1)
[2023-03-21] MEDS: PANTOPRAZOLE SOD 40 MG TABEC PO SCH (07:30)
[2023-03-21 08:13] VITALS: BP 122/74; PULSE 100; RESP 16; TEMP 98.6; O2SAT 93
[2023-03-21] MEDS: FLUDROCORTISONE ACETATE 0.1 MG TAB PO SCH (10:01)
[2023-03-21] MEDS: COLESTIPOL HCL 1 G TAB PO SCH (10:01)
[2023-03-21] MEDS: DOCUSATE SODIUM 100 MG CAP PO SCH (10:01)
[2023-03-21] MEDS: CELECOXIB 100 MG CAP PO SCH (10:01)
[2023-03-21] MEDS: MULTIVITAMINS/MINERALS TAB PO SCH (10:01)
[2023-03-21] MEDS: GABAPENTIN 400 MG CAP PO SCH (10:01)
[2023-03-21] MEDS: DIGOXIN 0.125 MG TAB PO SCH (10:01)
[2023-03-21] MEDS: SUCRALFATE 1 GM TAB PO SCH ×2 (10:01→11:30)
[2023-03-21] MEDS: TAMSULOSIN HCL 0.4 MG CAP PO SCH (10:01)
[2023-03-21] MEDS: MIDODRINE HCL 5 MG TABLET PO SCH (10:01)
[2023-03-21 11:55] VITALS: BP 136/75; PULSE 96; RESP 16; TEMP 98; O2SAT 93
[2023-03-21] MEDS ORDERED: ONDANSETRON HCL 4 MG ORAL DISINTEGRATING TAB PO PRN (12:15)
[2023-03-21 12:44] VITALS: PULSE 96; RESP 18; O2SAT 93
== END 2023-03-21 15:18 | disposition home or self-care (01) | DRG 748 ==
LOC: OR 10:46 → PACU V 14:36 → MED/SURG 15:41
PROVIDERS: ADMIT Internal Medicine; ATTEND Internal Medicine
PROC: 0TSC0ZZ Reposition Bladder Neck, Open Approach (ICD-10-PCS; 2023-03-19)
PROC: 0TSD0ZZ Reposition Urethra, Open Approach (ICD-10-PCS; 2023-03-19)
PROC: BT141ZZ Fluoroscopy of Kidneys, Ureters and Bladder using Low Osmolar Contrast (ICD-10-PCS; 2023-03-19)
PROC: 0JUC0JZ Supplement of Pelvic Region Subcutaneous Tissue and Fascia with Synthetic Substitute, Open Approach (ICD-10-PCS; principal; 2023-03-19 13:10)
DX: N81.10 Cystocele, unspecified (principal); E27.40 Unspecified adrenocortical insufficiency; K76.6 Portal hypertension; N39.0 Urinary tract infection, site not specified; N39.3 Stress incontinence (female) (male); G89.4 Chronic pain syndrome; D64.9 Anemia, unspecified; R31.0 Gross hematuria; R33.8 Other retention of urine; R31.29 Other microscopic hematuria; F17.298 Nicotine dependence, other tobacco product, with other nicotine-induced disorders; J44.9 Chronic obstructive pulmonary disease, unspecified; K21.9 Gastro-esophageal reflux disease without esophagitis; M81.0 Age-related osteoporosis without current pathological fracture; R62.7 Adult failure to thrive; G62.9 Polyneuropathy, unspecified; I10 Essential (primary) hypertension; I95.89 Other hypotension; Z87.440 Personal history of urinary (tract) infections
CPT/HCPCS: 36415; 71046; 74420; 80048; 85025; 94799; C1758; C1762; J1100; J1580; J1720; J2001; J2370; J2405; J2543; J7030

== ENCOUNTER 2024-06-05 19:46 | Emergency (ER) | payer MEDICARE, OTHER ==
[~2024-06-05] VITALS: Ht 154.9 cm; Wt 46.5 kg
[~2024-06-05 19:46] MED LIST changes: +BOTOX100 UNIT SC; +NYSTATIN100000 UNI PO; +ULTRAM 50MG50 MG PO; +VITAMIN B-1100 M1 PO
[2024-06-05 19:58] VITALS: PULSE 83; RESP 18; TEMP 97.2
[2024-06-05 21:25] VITALS: BP 105/52; PULSE 83; RESP 18; TEMP 97.2; O2SAT 92
== END 2024-06-05 21:15 | disposition home or self-care (01) ==
LOC: FSED 19:54
DX: S61.214A Laceration without foreign body of right ring finger without damage to nail, initial encounter (principal); W26.8XXA Contact with other sharp object(s), not elsewhere classified, initial encounter; Y93.G1 Activity, food preparation and clean up; Y92.89 Other specified places as the place of occurrence of the external cause; J44.9 Chronic obstructive pulmonary disease, unspecified; E27.40 Unspecified adrenocortical insufficiency; E03.9 Hypothyroidism, unspecified; K21.9 Gastro-esophageal reflux disease without esophagitis; M54.9 Dorsalgia, unspecified; G89.29 Other chronic pain
CPT/HCPCS: 99283